=== PATIENT | male | born 1955 | race Caucasian/White ===

== ENCOUNTER 2017-12-04 21:50 | Inpatient (IN) | payer OTHER ==
[2017-12-04] MEDS ORDERED: ONDANSETRON 4 MG/2 ML VIAL IVP STA (21:56)
[2017-12-04] MEDS ORDERED: MORPHINE SULFATE 4 MG/ML SYRINGE IVP STA (21:56)
[2017-12-04] MEDS ORDERED: PANTOPRAZOLE 40 MG/10 ML VIAL IVP STA (21:56)
[2017-12-04] MEDS ORDERED: SODIUM CHLORIDE 0.9% 1,000 ML IV STA (21:57)
[2017-12-04] MEDS ORDERED: HEPARIN SODIUM,PORCINE 5,000 UNIT/ML 1 ML VIAL IV PRN (21:57)
[2017-12-04] MEDS ORDERED: MORPHINE SULFATE 4 MG/ML SYRINGE IV PRN (21:57)
[2017-12-04] MEDS ORDERED: LABETALOL 5 MG/ML VIAL MDV IVP STA ×2 (21:57→21:59)
[2017-12-04] MEDS ORDERED: METOPROLOL TARTRATE 5 MG/5 ML VIAL IVP STA ×2 (21:57→21:59)
[2017-12-04] MEDS ORDERED: LORazepam 2 MG/ML INJ IV STA (21:57)
[2017-12-04] MEDS ORDERED: HEPARIN SODIUM,PORCINE 5,000 UNIT/ML 1 ML VIAL IV ONE (21:57)
[2017-12-04] MEDS ORDERED: NITROGLYCERIN SL TABS 0.4 MG TAB SUBLINGUAL PRN ×2 (21:57→23:39)
[2017-12-04] MEDS ORDERED: NITROGLYCERIN OINT 1 INCH/GM PACKET TOPICAL STA (21:57)
[2017-12-04] MEDS ORDERED: ASPIRIN 81 MG PO STA (21:57)
[2017-12-04] MEDS ORDERED: HEPARIN SOD,PORK IN 0.45% NACL 25,000 UNIT in 0.45% NACL 1 500ML.BAG IV SCH (22:00)
[2017-12-04] MEDS ORDERED: HEPARIN SODIUM,PORCINE 5,000 UNIT/ML 1 ML VIAL IV STA (22:00)
[2017-12-04] MEDS ORDERED: DEXTROSE 5% IN WATER 100 ML with AMIODARONE 150 MG IV ONE (22:02)
[2017-12-04 22:14] LABS: HGB 14.4 gm/dL (13.0-17.5); MCH 29.5 pg (25.0-35.0); MCHC 33.5 g/dL (31.0-37.0); MCV 88.2 fL (80.0-100.0); Mean Platelet Volume 6.9; Platelet Count 318 k/uL (150-450); RBC 4.87 m/uL (4.30-5.90); RDW 12.3 % (11.5-15.5); WBC 13.6 k/uL (3.8-10.6)
--- NOTE | 2017-12-04 22:14 | XR ---
EXAMINATION TYPE: XR chest 1V portable DATE OF EXAM: 12/04/2017 COMPARISON: 01/30/2015 HISTORY: Chest pain TECHNIQUE: Single frontal view of the chest is obtained. FINDINGS: Heart and mediastinum are within normal limits. Lungs are clear of infiltrate. There is no heart failure. There is no pleural effusion. There are chest leads. IMPRESSION: No active cardiopulmonary disease. No change.
[2017-12-04] MEDS: ATORVASTATIN 80 MG TAB PO SCH (22:15)
[2017-12-04] MEDS ORDERED: ATORVASTATIN 80 MG TAB PO STA (22:16)
[2017-12-04 22:22] LABS: Partial Thromboplastin Time 23.9 sec (22.0-30.0)
[2017-12-04 22:28] LABS: ALT 29 U/L (21-72); AST 27 U/L (17-59); Alkaline Phosphatase 80 U/L (38-126); Anion Gap 16 mmol/L; Blood Urea Nitrogen 21 mg/dL (9-20); Calcium 9.6 mg/dL (8.4-10.2); Carbon Dioxide 23 mmol/L (22-30); Chloride 102 mmol/L (98-107); Glucose 162 mg/dL (74-99); Potassium 3.8 mmol/L (3.5-5.1); Sodium 141 mmol/L (137-145); Total Bilirubin 0.6 mg/dL (0.2-1.3); Total Protein 6.6 g/dL (6.3-8.2)
--- NOTE | 2017-12-04 22:28 | ED ---
General Adult HPI - General Chief complaint: Chest Pain Stated complaint: chest pain Time Seen by Provider: 12/04/17 21:57 Source: patient, RN notes reviewed, old records reviewed Mode of arrival: EMS Limitations: no limitations - History of Present Illness Initial comments: This is a 8-year-old male to the ER for evasive chest pain. Patient brought in by EMS. Patient in significant distress diaphoresis. Patient has history of heart disease with prior stents. Patient is a smoker. High blood pressure. Not taking blood pressure medications. Patient has severe chest pain at this time shortness of breath. Patient brought in by EMS - Related Data Home Medications Medication Instructions Recorded Confirmed Aspirin 325 mg PO DAILY 12/05/17 12/05/17 Allergies Allergy/AdvReac Type Severity Reaction Status Date / Time No Known Allergies Allergy Verified 12/04/17 22:02 Review of Systems ROS Statement: Those systems with pertinent positive or pertinent negative responses have been documented in the HPI. ROS Other: All systems not noted in ROS Statement are negative. Past Medical History History of Any Multi-Drug Resistant Organisms: None Reported Past Psychological History: No Psychological Hx Reported Smoking Status: Current every day smoker Past Alcohol Use History: None Reported Past Drug Use History: None Reported - Past Family History Father Family Medical History: Myocardial Infarction ([place]) Additional Family Medical History / Comment(s): smoker, lung CA Mother Family Medical History: No Reported History General Exam Limitations: no limitations General appearance: alert, anxious, in distress Head exam: Present: atraumatic, normocephalic, normal inspection Eye exam: Present: normal appearance, PERRL, EOMI. Absent: scleral icterus, conjunctival injection, periorbital swelling ENT exam: Present: normal exam, mucous membranes moist Neck exam: Present: normal inspection. Absent: tenderness, meningismus, lymphadenopathy Respiratory exam: Present: normal lung sounds bilaterally. Absent: respiratory distress, wheezes, rales, rhonchi, stridor Cardiovascular Exam: Present: regular rate, normal rhythm, normal heart sounds. Absent: systolic murmur, diastolic murmur, rubs, gallop, clicks GI/Abdominal exam: Present: soft, normal bowel sounds. Absent: distended, tenderness, guarding, rebound, rigid Extremities exam: Present: normal inspection, full ROM, normal capillary refill. Absent: tenderness, pedal edema, joint swelling, calf tenderness Back exam: Present: normal inspection Neurological exam: Present: alert, oriented X3, CN II-XII intact Psychiatric exam: Present: normal affect, normal mood Skin exam: Present: warm, dry, intact, normal color. Absent: rash Course Vital Signs 12/04/17 12/04/17 12/04/17 21:57 22:00 22:03 Temperature 97.9 F Pulse Rate 145 H 128 H 140 H Respiratory 20 20 Rate Blood Pressure 180/108 127/76 133/80 O2 Sat by Pulse 99 98 99 Oximetry 12/04/17 12/04/17 12/04/17 22:06 22:12 22:18 Temperature Pulse Rate 128 H 116 H Respiratory Rate Blood Pressure 130/95 124/77 124/77 O2 Sat by Pulse 99 98 99 Oximetry 12/04/17 12/04/17 22:22 22:27 Temperature Pulse Rate 91 89 Respiratory 20 20 Rate Blood Pressure 119/84 112/87 O2 Sat by Pulse 99 99 Oximetry - Reevaluation(s) Reevaluation #1: STEMI paged on patient arrival to emergency room Copier Operator in the ER regarding patient Reevaluation #2: per EMS patient had episode of VFIB w defibrillation enroute EKG Findings - EKG Comments: EKG Findings:: EKG shows A. fib with RVR, rate of 145, QRS 110, QTc 447, patient is ST elevated [place]. EKG shows A. fib with RVR rate 132, QRS 106, QTc 420 , STEMI Medical Decision Making - Medical Decision Making 62 male the ER for evaluation of chest pain, V. fib arrest, continued chest pain with ST elevated [place], patient will be admitted for cardiology, Barrel Line Operator - Lab Data Result diagrams: 12/04/17 22:01 12/04/17 22:01 Lab Results 12/04/17 12/04/17 12/04/17 Range/Units 22:01 22:01 22:01 WBC 13.6 H (3.8-10.6) k/uL RBC 4.87 (4.30-5.90) m/uL Hgb 14.4 (13.0-17.5) gm/dL Hct 43.0 (39.0-53.0) % MCV 88.2 (80.0-100.0) fL MCH 29.5 (25.0-35.0) pg MCHC 33.5 (31.0-37.0) g/dL RDW 12.3 (11.5-15.5) % Plt Count 318 (150-450) k/uL PT 11.1 (9.0-12.0) sec INR 1.2 H (<1.2) APTT 23.9 (22.0-30.0) sec Sodium (137-145) mmol/L Potassium (3.5-5.1) mmol/L Chloride (98-107) mmol/L Carbon Dioxide (22-30) mmol/L Anion Gap mmol/L BUN (9-20) mg/dL Creatinine (0.66-1.25) mg/dL Est GFR (MDRD) Af Amer (>60 ml/min/1.73 sqM) Est GFR (MDRD) Non-Af (>60 ml/min/1.73 sqM) Glucose (74-99) mg/dL Calcium (8.4-10.2) mg/dL Magnesium (1.6-2.3) mg/dL Total Bilirubin (0.2-1.3) mg/dL AST (17-59) U/L ALT (21-72) U/L Alkaline Phosphatase (38-126) U/L Total Creatine Kinase 81 (55-170) U/L CK-MB (CK-2) 1.1 (0.0-2.4) ng/mL CK-MB (CK-2) Rel Index 1.4 Troponin I 0.045 H* (0.000-0.034) ng/mL NT-Pro-B Natriuret Pep pg/mL Total Protein (6.3-8.2) g/dL Albumin (3.5-5.0) g/dL 12/04/17 12/04/17 Range/Units 22:01 22:01 WBC (3.8-10.6) k/uL RBC (4.30-5.90) m/uL Hgb (13.0-17.5) gm/dL Hct (39.0-53.0) % MCV (80.0-100.0) fL MCH (25.0-35.0) pg MCHC (31.0-37.0) g/dL RDW (11.5-15.5) % Plt Count (150-450) k/uL PT (9.0-12.0) sec INR (<1.2) APTT (22.0-30.0) sec Sodium 141 (137-145) mmol/L Potassium 3.8 (3.5-5.1) mmol/L Chloride 102 (98-107) mmol/L Carbon Dioxide 23 (22-30) mmol/L Anion Gap 16 mmol/L BUN 21 H (9-20) mg/dL Creatinine 1.00 (0.66-1.25) mg/dL Est GFR (MDRD) Af Amer >60 (>60 ml/min/1.73 sqM) Est GFR (MDRD) Non-Af >60 (>60 ml/min/1.73 sqM) Glucose 162 H (74-99) mg/dL Calcium 9.6 (8.4-10.2) mg/dL Magnesium 2.0 (1.6-2.3) mg/dL Total Bilirubin 0.6 (0.2-1.3) mg/dL AST 27 (17-59) U/L ALT 29 (21-72) U/L Alkaline Phosphatase 80 (38-126) U/L Total Creatine Kinase (55-170) U/L CK-MB (CK-2) (0.0-2.4) ng/mL CK-MB (CK-2) Rel Index Troponin I (0.000-0.034) ng/mL NT-Pro-B Natriuret Pep 60 pg/mL Total Protein 6.6 (6.3-8.2) g/dL Albumin 4.0 (3.5-5.0) g/dL - Radiology Data Radiology results: report reviewed (Chest x-rays negative), image reviewed Critical Care Time Critical Care Time: Yes Total Critical Care Time: 31 Disposition Clinical Impression: ST elevation myocardial infarction (STEMI) Disposition: ADMITTED IP TO THIS HOSP Condition: Critical
[2017-12-04] MEDS ORDERED: IV FLUID CONTINUATION 1,000 ML IV ONE (22:36)
[2017-12-04] MEDS ORDERED: ONDANSETRON 4 MG/2 ML VIAL IVP ONE (22:38)
[2017-12-04] MEDS ORDERED: LIDOCAINE 2% INJ 20 MG/ML (20 ML MDV) ONE (22:40)
[2017-12-04] MEDS ORDERED: fentaNYL (PF) 50 MCG/ML 2 ML AMP IV ONE (22:43)
[2017-12-04] MEDS ORDERED: LIDOCAINE 2% INJ 20 MG/ML SQ ONE (22:43)
[2017-12-04 22:44] LABS: Creatine Kinase MB 1.1 ng/mL (0.0-2.4)
[2017-12-04] MEDS ORDERED: fentaNYL (PF) 50 MCG/ML 2 ML AMP ONE (22:46)
[2017-12-04] MEDS ORDERED: PRASUGREL 10 MG TAB ONE (22:50)
[2017-12-04 22:51] LABS: Troponin I 0.045 ng/mL (0.000-0.034)
[2017-12-04] MEDS ORDERED: PRASUGREL 10 MG TAB PO ONE (22:52)
[2017-12-04] MEDS ORDERED: BIVALIRUDIN BOLUS 250 MG/50 ML IV ONE (22:52)
[2017-12-04] MEDS ORDERED: BIVALIRUDIN 250 MG in SODIUM CHLORIDE 0.9% 50 ML IV ONE (22:53)
[2017-12-04 23:09] LABS: INR 1.2 (<1.2); Prothrombin Time 11.1 sec (9.0-12.0)
[2017-12-04] MEDS ORDERED: IOHEXOL 350 MG/ML 125ML BOTTLE INJ ONE (23:16)
[2017-12-04] MEDS ORDERED: ZOLPIDEM 5 MG TAB PO PRN (23:39)
[2017-12-04] MEDS ORDERED: MAG HYDROX/AL HYDROX/SIMETH 30 ML CUP PO PRN (23:39)
[2017-12-04] MEDS ORDERED: RX INFO: IV CONTRAST WAS GIVEN 1 EACH MISC MISCELLANE PRN (23:39)
[2017-12-04] MEDS ORDERED: ATROPINE SULFATE 0.1 MG/ML 10ML SYRINGE IV PRN (23:39)
--- NOTE | 2017-12-04 23:41 | CONS ---
CONSULTATION Mr. Davila is a 62-year-old male with a known history of chronic tobacco use, prior history of hypertension and history of coronary artery disease who according to him has underwent percutaneous revascularization in 2011. He presented to the emergency room with symptoms of chest discomfort. According to him, the pain started today, severe across the chest underneath the arm. In the EMS, he had a VT arrest requiring cardioversion. At the time of my evaluation, he is in atrial fibrillation with episode of rapid ventricular response. According to him, this is the first episode of discomfort he had since the event in 2011. All the details of that are not available. He has not followed with a physician since that time and has not been taking any medication recently. He has dyspnea on exertion, according to him for the last month. He has not been feeling well. He has no peripheral edema. No significant dizziness or palpitation. No syncope. The duration of the atrial fibrillation is unclear. His coronary risk factors are remarkable for smoking, hypertension. He denies any diabetes. I do not have evaluation of his lipid profile. MEDICATION: None. REVIEW OF SYSTEMS: RESPIRATORY SYSTEM: He has dyspnea on exertion and cough. GI SYSTEM: No history of GI bleed. No peptic ulcer disease. SYSTEM: No dysuria or hematuria. NERVOUS SYSTEM: No stroke or seizure. SOCIAL HISTORY: He denies any alcohol intake or history of drug use. PHYSICAL EXAMINATION: A 62-year-old male, alert, oriented in mild discomfort. Blood pressure 120/70 with a heart rate in the 110s. HEAD: Normocephalic. EYES: Sclerae anicteric. NECK: Good upstroke. No bruit. LUNGS: Decreased air exchange. HEART: Irregularly irregular. S1, S2. No S3 with systolic murmur. No diastolic murmur. ABDOMEN: Soft, nontender. Positive bowel sounds. No organomegaly. EXTREMITIES: No edema, +1 distal pulses. LAB DATA: EKG revealed an atrial fibrillation with rapid ventricular response with diffuse ST- segment depression and mild ST-elevation in aVR. IMPRESSION: 1. Acute coronary syndrome with an episode of ventricular tachycardia requiring cardioversion. 2. Atrial fibrillation of unknown duration. 3. History of coronary artery disease. 4. History of chronic tobacco use. 5. Noncompliance. RECOMMENDATION: From the cardiac standpoint, I will proceed with emergent cardiac catheterization to assess his status and guide his treatment. The rationale behind the procedure, its risks and complications were discussed with the patient and in full understanding and agreement. Thank you for this consult. We will follow with you. MMODL / IJN: [id number] /
[2017-12-04 23:45] LABS: Glucose,Whole Blood 131 mg/dL (75-99)
[2017-12-04] MEDS ORDERED: SODIUM CHLORIDE 0.9% 1,000 ML IV SCH (23:45)
[2017-12-04] MEDS ORDERED: Potassium Replacement Protocol 1 EACH MISC MISCELLANE PRN (23:52)
[2017-12-05] MEDS ORDERED: Magnesium Replacement Protocol 1 EACH MISC MISCELLANE PRN (00:27)
[2017-12-05 00:44] VITALS: BMI 24.3
[2017-12-05] MEDS ORDERED: POTASSIUM CHLORIDE ER 20 MEQ TAB.ER PO SCH (01:00)
[2017-12-05] MEDS: MAGNESIUM SULFATE-D5W PMX 1 GM in DEXTROSE/WATER 1 100ML.BAG IVPB SCH ×2 (01:07→02:55)
--- NOTE | 2017-12-05 03:17 | CC ---
CARDIAC CATHETERIZATION REPORT Mr. Davila is a 62-year-old male with a known history of coronary artery disease, status post percutaneous revascularization of his right coronary artery in 2012, who presented with non ST-segment elevation myocardial infarction and atrial fibrillation as well as an episode of ventricular tachycardia requiring cardioversion. In view of that, recommendation made regarding cardiac catheterization. The procedures, risks and complications were discussed with the patient who is in full understanding and agreement. PROCEDURE: Patient was brought to microbiology lab technician after receiving Versed and fentanyl and achieving moderate conscious sedated state. Using Xylocaine anesthesia and Seldinger technique, a 6-Stateless sheath was introduced in the right femoral artery. Selective right and left angiography performed using 6-Stateless 4 bend right and left Yesika catheter. Multiple views of the coronary artery including hemiaxial views obtained. Following that angioplasty and stenting of the left circumflex was performed. Following that, a 6- Stateless tight pigtail catheter was introduced in the left ventricle and a 30 degree BEY view of the left ventricle was obtained. Following that, the catheter and sheath were removed. Hemostasis was obtained with deployment of an Angio-Seal. There was no immediate complication. Patient is returned to his room in stable condition. FINDINGS: 1. Left main this is a large-sized vessel bifurcating into the left circumflex artery, left anterior descending artery, left main coronary artery is without any significant obstructive disease. 2. Left anterior descending artery: This is a large size vessel reaching towards the apex with a wrap the apex segment. The left anterior descending artery in the mid segment gives rise to a large diagonal branch. The proximal segment of the LAD has a complex lesion with area of stenosis of 70%. The rest of the vessel has no high- grade stenosis. 3. Left circumflex: This vessel is totally occluded proximally with no antegrade flow. 4. Right coronary artery: This is a large dominant vessel bifurcating distally PDA and posterolateral segment and branches. Mid segment of the right coronary artery is stented. The stent is patent, but there is evidence of plaque proximal to the stent of about 40%. In the distal segment of the stent, there is another plaque of 60-70% stenosis. The distal right coronary artery as well as the PDA and PLV have mild diffuse intimal disease. There is an area of 60 the patient 70% plaque in the PLV. 5. Left ventriculogram is performed in 30 degree BEY view and revealed an inferior wall hypokinesis. Ejection fraction is estimated at 45%. There was no significant mitral regurgitation. 6. HEMODYNAMICS: There was no gradient across the aortic valve. The left ventricular end-diastolic pressure was 16 mmHg. CONCLUSION: 1. Acutely occluded proximal left circumflex. 2. Significant disease in the proximal LAD. 3. Moderate disease in the right coronary artery. 4. Mildly impaired left ventricular systolic function. RECOMMENDATION: In view of findings and anatomy, I have recommend proceeding with angioplasty and stenting of the left circumflex. The procedures, as well as risks and complication were discussed with the patient who was in full understanding and agreement. MMODL / IJN: [id number] /
--- NOTE | 2017-12-05 03:19 | PTCA ---
PERCUTANEOUSTRANS CORORONARY ANGIOGRAPHY Mr. Davila is a 62-year-old male with a known history of coronary disease, who presented with non STEMI, underwent emergent cardiac catheterization, was found to have a totally occluded proximal left circumflex. In view of that, recommendation was made regarding angioplasty and stenting the procedures as well as risks and complications were discussed with the patient who is in full understanding and agreement. PROCEDURE: A 6-Hungarian FR4 guiding catheter in the system. After cannulating the left main, a 0.014 balanced medium weight J-wire was advanced across the total occlusion and was positioned distally. Then a 2.5 x 12 mm Trek balloon was advanced and one inflation at 8 atmospheres was done. Following that the balloon was removed and a 2.5 x 15 mm Xience Alpine stent was deployed. It was dilated at 14 atmospheres. After the last inflation, after appropriate wait, the balloon and the guidewire were withdrawn back in the guiding catheter. Images were obtained and repeated. Those images reveal stable successful stenting. At that point, the guiding catheter, the balloon and the guidewire were removed and a left ventriculogram was performed. Following the catheter and sheaths were removed. Hemostasis was obtained with deployment of an Angio-Seal. There was no immediate complication. Patient is returned to his room in stable condition. Of note, the patient received Angiomax per protocol as was oral loading dose of Effient. At the end the procedure, his chest discomfort resolved. RESULTS: Successful stenting of the proximal left circumflex with reduction of stenosis from 100% to 0%. RECOMMENDATIONS: Patient will be continued on aspirin, Effient, beta mark and ADRIEN inhibitor and statins. The importance of dual antiplatelet treatment as well as smoking cessation were discussed with the patient. The patient has not been compliant in the past and has stopped all his medication. Emphasized to him the importance of medical compliance. He will need to be evaluated at a later time regarding undergoing percutaneous revascularization of the LAD. Those findings and recommendation were discussed with the patient and he was in full understanding and agreement. Duration of procedure: 36 minutes. MMODL / IJN: [id number] /
[2017-12-05 04:29] LABS: Basophils % (A) 0 %; Eosinophils % (A) 0 %; HCT 42.6 % (39.0-53.0); HGB 13.7 gm/dL (13.0-17.5); Lymphocytes % (A) 10 %; MCH 29.4 pg (25.0-35.0); MCHC 32.1 g/dL (31.0-37.0); MCV 91.4 fL (80.0-100.0); Mean Platelet Volume 6.8; Monocytes # (A) 0.5 k/uL (0-1.0); Monocytes % (A) 5 %; Neutrophils # (A) 8.7 k/uL (1.3-7.7); Neutrophils % (A) 84 %; Platelet Count 274 k/uL (150-450); RBC 4.66 m/uL (4.30-5.90); RDW 12.4 % (11.5-15.5); WBC 10.4 k/uL (3.8-10.6)
[2017-12-05 04:37] LABS: Anion Gap 8 mmol/L; Blood Urea Nitrogen 18 mg/dL (9-20); Calcium 8.6 mg/dL (8.4-10.2); Carbon Dioxide 27 mmol/L (22-30); Chloride 103 mmol/L (98-107); Cholesterol 156 mg/dL (<200); Glucose 111 mg/dL (74-99); HDL Cholesterol 45 mg/dL (40-60); LDL Cholesterol,Calculated 93 mg/dL (0-99); Potassium 4.4 mmol/L (3.5-5.1); Sodium 138 mmol/L (137-145); Triglycerides 88 mg/dL (<150)
[2017-12-05 05:11] LABS: Troponin I 48.6 ng/mL (0.000-0.034)
[2017-12-05 05:16] LABS: INR 1.1 (<1.2)
[2017-12-05 05:17] LABS: Prothrombin Time 10.8 sec (9.0-12.0)
[2017-12-05 05:19] LABS: Magnesium 2.6 mg/dL (1.6-2.3); Partial Thromboplastin Time 28.2 sec (22.0-30.0); Phosphorus 3.5 mg/dL (2.5-4.5)
[2017-12-05] MEDS: LISINOPRIL 5 MG TAB PO SCH (08:49)
[2017-12-05] MEDS: PRASUGREL 10 MG TAB PO SCH (08:49)
[2017-12-05] MEDS: ASPIRIN 81 MG PO SCH (08:49)
[2017-12-05] MEDS: METOPROLOL TARTRATE 25 MG TAB PO SCH ×2 (08:49→21:37)
[2017-12-05] MEDS ORDERED: METOPROLOL TARTRATE 50 MG TAB PO SCH (09:00)
[2017-12-05] MEDS ORDERED: ASPIRIN 325 MG TAB PO SCH (09:00)
[2017-12-05] MEDS ORDERED: ATORVASTATIN 80 MG TAB PO SCH (09:00)
--- NOTE | 2017-12-05 09:49 | ECHOF ---
Referral Reason:mi MEASUREMENTS -------- HEIGHT: 175.3 cm WEIGHT: 74.4 kg BP: 110/71 RVIDd: 2.3 cm (< 3.3) IVSd: 1.3 cm (0.6 - 1.1) LVIDd: 3.6 cm (3.9 - 5.3) LVPWd: 1.1 cm (0.6 - 1.1) IVSs: 1.5 cm LVIDs: 3.0 cm LVPWs: 1.2 cm LA Diam: 2.7 cm (2.7 - 3.8) LAESV Index (A-L): 17.64 ml/m Ao Diam: 3.9 cm (2.0 - 3.7) AV Cusp: 1.9 cm (1.5 - 2.6) MV EXCURSION: 18.612 mm (> 18.000) MV EF SLOPE: 68 mm/s (70 - 150) EPSS: 0.7 cm MV E Darren: 1.03 m/s MV DecT: 232 ms MV A Darren: 0.88 m/s MV E/A Ratio: 1.17 RAP: 15.00 mmHg RVSP: 27.01 mmHg FINDINGS -------- Sinus rhythm with extra systolic beats. The left ventricular size is normal. There is mild concentric left ventricular hypertrophy. Overa ll left ventricular systolic function is mildly impaired with, an EF between 45 - 50 %. Basal poste rior LV wall motion is dyskinetic. Basal inferior LV wall motion is hypokinetic. The right ventricle is normal in size. Normal LA size by volume 22+/-6 ml/m2. The right atrium is normal in size. Aortic valve is trileaflet and is mildly thickened. The mitral valve is normal. Mild tricuspid regurgitation present. Right ventricular systolic pressure is normal at < 35 mmHg. There is no pulmonic regurgitation present. The aortic root is dilated measuring 3.9cm. The inferior vena cava is dilated with poor inspiratory collapse which is consistent with estimated r ight atrial pressure of 15 mmHg. There is no pericardial effusion. CONCLUSIONS -------- 1. Sinus rhythm with extra systolic beats. 2. The left ventricular size is normal. 3. There is mild concentric left ventricular hypertrophy. 4. Overall left ventricular systolic function is mildly impaired with, an EF between 45 - 50 %. 5. Basal posterior LV wall motion is dyskinetic. 6. Basal inferior LV wall motion is hypokinetic. 7. The right ventricle is normal in size. 8. Normal LA size by volume 22+/-6 ml/m2. 9. The right atrium is normal in size. 10. Aortic valve is trileaflet and is mildly thickened. 11. The mitral valve is normal. 12. Mild tricuspid regurgitation present. 13. Right ventricular systolic pressure is normal at < 35 mmHg. 14. There is no pulmonic regurgitation present. 15. The aortic root is dilated measuring 3.9cm. 16. The inferior vena cava is dilated with poor inspiratory collapse which is consistent with estimat ed right atrial pressure of 15 mmHg. 17. There is no pericardial effusion. SENIOR MAJOR GIFTS OFFICER: Smita Wadsworth RDCS
[2017-12-05] MEDS ORDERED: ONDANSETRON 4 MG/2 ML VIAL IVP STA (09:57)
[2017-12-05] MEDS: NICOTINE 14MG/24HR PATCH TRANSDERM SCH (10:11)
[2017-12-05] MEDS: ALPRAZolam 0.5 MG TAB PO PRN (10:13)
[2017-12-05 11:43] LABS: Troponin I 43.4 ng/mL (0.000-0.034)
[2017-12-05 11:54] LABS: Hemoglobin A1C 5.7 % (4.0-6.0)
[2017-12-05] MEDS ORDERED: HYDROmorphone 0.5 MG/0.5 ML SYRINGE IVP PRN (16:24)
--- NOTE | 2017-12-05 17:33 | PN ---
PROGRESS NOTE Mr. Davila is a gentleman who presented last night with an ST-elevation SC involving the circumflex artery. He underwent stenting of circumflex with excellent result. Prior to that several years ago he had stenting of RCA performed. There was in-stent restenosis of about 70% noted. The LAD has a 50% to 55% calcified proximal lesion. I am advising that we pursue aggressive medical therapy and he will be discharged when stable. We will do staged intervention of the RCA at a later date. I discussed this with the patient. Also reviewed the films and communicated with Dr. Lobo. Vital signs are stable. S1, S2 heard normally. Lungs are clear. Abdomen and lower extremity exam unchanged. Right groin is clean and dry with a good pulse. Patient will be moved to telemetry later this evening or early tomorrow. We will obtain an echocardiogram as well. MMSCOTTL / ANGELICAN: [id number] /
--- NOTE | 2017-12-05 18:33 | HP ---
HISTORY AND PHYSICAL DATE OF SERVICE: 12/04/2017 CHIEF COMPLAINT: Chest pain. BRIEF HISTORY: This is a 62-year-old male patient with a past medical history of hypertension, history of coronary artery disease and history of PCI in 2011 who presented to ED with the complaint of chest discomfort. According to patient, it started on the day prior to coming to the hospital. It was severe pain across the middle of the chest radiating to underneath his arm. En route to ED patient had ventricular tachycardia arrest requiring cardioversion. He was seen in ED with atrial fibrillation with rapid ventricular response. He was admitted for further evaluation. PAST MEDICAL HISTORY: 1. History of hypertension. 2. Coronary artery disease. 3. History of PCI in 2011. 4. History of tobacco abuse. SOCIAL HISTORY: Patient smokes a pack of cigarettes per day. Denies any history of alcohol or drug abuse. FAMILY HISTORY: Significant for SD in father and carcinoma of the lung and SD and carcinoma of lung in father. Also strong smoking history in father. ALLERGIES: NO KNOWN DRUG ALLERGIES. MEDICATIONS: He takes aspirin 325 mg daily. REVIEW OF SYSTEMS: CONSTITUTIONAL: Patient denies any fever, chills, unexplained weight loss or loss of appetite. HEENT: Denies any vision or hearing loss. RESPIRATORY: Denies any dyspnea, cough or wheezing. CARDIOVASCULAR: No chest pain or palpitations. ABDOMEN/GI: No nausea, vomiting, diarrhea. GENITOURINARY: No dysuria or hematuria. NERVOUS SYSTEM: No dizziness, lightheadedness or seizures. MUSCULOSKELETAL: No joint or muscle deformities. SKIN: No rashes or pigmentation. HEMATOLOGICAL: No bleeding or coagulation disorders. LYMPHATICS: No cervical or axillary lymphadenopathy. Rest of 14-point review of system is unremarkable. PHYSICAL EXAMINATION: GENERAL: Patient is alert and anxious. He is in distress. VITAL SIGNS: Temperature of 98.6, respiration 20, blood pressure 119/84, oxygen saturation 99%. HEENT: Atraumatic, normocephalic. Pupils equal and reactive to light. Extraocular movements intact. Buccal mucosa is fair. NECK: Supple. No goiter or lymphadenopathy. JVD is negative. No carotid bruit heard. RESPIRATORY: Lungs are clear to auscultate. No rales, rhonchi or wheezes. CARDIOVASCULAR: Heart is regular rate and rhythm without any murmurs, gallop rhythm. ABDOMEN/GI. Abdomen is soft, nontender, nondistended. Bowel sounds positive. EXTREMITIES: Patient has all full range of motion, all 4 extremities. Pulses are palpable. No rashes or pigmentation. BACK EXAMINATION: Normal. NEUROLOGICAL EXAMINATION: Cranial nerves 2-12 grossly intact. No gross motor or sensory deficit. PSYCHIATRIC EXAMINATION: Patient has normal affect , normal judgment. SKIN EXAMINATION: Skin is warm, dry and intact. No rashes or pigmentation. LYMPHATIC SYSTEM: No axillary or cervical lymph node enlargement. LABS: CBC: White blood count of 13.6, hemoglobin 14.4, hematocrit 43 and platelet count of 318. PT 11.1, INR 1.2. Chemical profile: Sodium 141, potassium 3.8, chloride 102, bicarb 23, BUN 29, creatinine 1, glucose 162. Troponin 0.045. ASSESSMENT: 1. Acute coronary syndrome with an episode of ventricular tachycardia requiring cardioversion. 2. Atrial fibrillation with rapid ventricular response. 3. History of coronary artery disease. 4. Chronic tobacco abuse. 5. Hypertension. The patient is admitted to ICU. Patient is to go for emergent cardiac catheterization for further treatment and evaluation. Troponins will be trended. Further recommendations after heart catheterization is done. MMODL / IJN: [id number] / MTDGabe
[2017-12-05] MEDS: ATORVASTATIN 80 MG TAB PO SCH (21:37)
[2017-12-06] MEDS: PRASUGREL 10 MG TAB PO SCH (08:10)
[2017-12-06] MEDS: LISINOPRIL 5 MG TAB PO SCH (08:10)
[2017-12-06] MEDS: ASPIRIN 81 MG PO SCH (08:11)
[2017-12-06] MEDS: METOPROLOL TARTRATE 25 MG TAB PO SCH (08:11)
[2017-12-06] MEDS: NICOTINE 14MG/24HR PATCH TRANSDERM SCH (08:13)
[2017-12-06] MEDS: ALPRAZolam 0.5 MG TAB PO PRN ×2 (09:30→22:29)
--- NOTE | 2017-12-06 17:04 | PN ---
PROGRESS NOTE Mr. Davila suffered from an acute inferior WI yesterday, underwent circumflex PCI by Dr. Lobo. He is doing much better. Denies chest pain, stable shortness of breath. No palpitations. I reviewed his medications. We will increase activity and move him to telemetry today. Vital signs are stable. S1, S2 heard normally. Lungs are clear. Abdomen and lower extremity exam unchanged. Plan is possibly discharge him in the next 24 to 48 hours. Discussed my thoughts in detail with the patient and also reinforced risk factor modification and smoking cessation. MMODL / IJN: [id number] /
--- NOTE | 2017-12-06 18:40 | PN ---
PROGRESS NOTE DATE OF SERVICE: 12/06/2017 The patient is admitted to ICU for acute ID, status post cardiac catheterization showing coronary artery disease. Patient underwent circumflex PCI by Dr. Lobo, remains hemodynamically stable. His vital signs: Temperature of 98.7, pulse 60, respirations 18, blood pressure 140/83, O2 saturation 100%. HEENT: Atraumatic, normocephalic. Pupils equal and react to light. Extraocular movements intact. Buccal mucosa is fair. Neck is supple. No goiter, lymphadenopathy. JVD is negative. No carotid bruit heard. Lungs are clear to auscultate. No rales, rhonchi or wheezes. Heart is regular rate and rhythm without any murmurs, gallop rhythm. Abdomen is soft, nontender, nondistended. Bowel sounds positive. EXTREMITIES: No edema, clubbing, cyanosis. ASSESSMENT: 1. Acute myocardial infarction, status post cardiac catheterization with circumflex percutaneous intervention. 2. Episodes of ventricular tachycardia requiring cardioversion. 3. Atrial fibrillation with a rapid ventricular response, clinically stable. 4. History of coronary artery disease. 5. Chronic tobacco abuse. 6. Hypertension. The patient has undergone circumflex percutaneous intervention, is being followed by Cardiology. Plan is to continue current medications and plan of care and for possible discharge in 24-48 hours. Counseling done for risk factor modification and smoking cessation. The patient is not very receptive at this point. MMODL / IJN: [id number] /
[2017-12-07 05:29] LABS: ALT 41 U/L (21-72); AST 54 U/L (17-59); Alkaline Phosphatase 77 U/L (38-126); Anion Gap 9 mmol/L; Blood Urea Nitrogen 23 mg/dL (9-20); Calcium 9.3 mg/dL (8.4-10.2); Carbon Dioxide 32 mmol/L (22-30); Chloride 100 mmol/L (98-107); Glucose 99 mg/dL (74-99); Potassium 3.9 mmol/L (3.5-5.1); Sodium 141 mmol/L (137-145); Total Protein 6.7 g/dL (6.3-8.2)
[2017-12-07 05:38] LABS: Basophils # (A) 0.1 k/uL (0-0.2); Basophils % (A) 1 %; Eosinophils # (A) 0.2 k/uL (0-0.7); Eosinophils % (A) 2 %; HCT 44.7 % (39.0-53.0); HGB 14.8 gm/dL (13.0-17.5); Lymphocytes # (A) 2.2 k/uL (1.0-4.8); Lymphocytes % (A) 24 %; MCH 29.4 pg (25.0-35.0); MCV 89.1 fL (80.0-100.0); Monocytes # (A) 0.7 k/uL (0-1.0); Monocytes % (A) 7 %; Neutrophils # (A) 6.1 k/uL (1.3-7.7); Neutrophils % (A) 65 %; Platelet Count 276 k/uL (150-450); RBC 5.02 m/uL (4.30-5.90); RDW 12.2 % (11.5-15.5); WBC 9.3 k/uL (3.8-10.6)
[2017-12-07] MEDS ORDERED: POTASSIUM CHLORIDE ER 20 MEQ TAB.ER PO SCH (09:00)
[2017-12-07] MEDS: ATORVASTATIN 80 MG TAB PO SCH ×2 (09:49→20:11)
[2017-12-07] MEDS: METOPROLOL TARTRATE 25 MG TAB PO SCH ×3 (09:49→20:11)
[2017-12-07] MEDS: LISINOPRIL 10 MG TAB PO SCH (09:50)
[2017-12-07] MEDS: ASPIRIN 81 MG PO SCH (09:50)
[2017-12-07] MEDS: PRASUGREL 10 MG TAB PO SCH (09:50)
[2017-12-07] MEDS: NICOTINE 14MG/24HR PATCH TRANSDERM SCH (09:50)
[2017-12-07] MEDS ORDERED: HYDROmorphone 2 MG TAB PO PRN (11:18)
[2017-12-07 11:48] LABS: Glucose,Whole Blood 105 mg/dL (75-99)
--- NOTE | 2017-12-07 15:03 | PN ---
PROGRESS NOTE Mr. Davila is status post circumflex PCI performed by Dr. Lobo on Friday. He is doing well. He still has a disease within the stented segment of RCA and moderate disease in LAD. I am recommending that we continue current medications, increase activity. Move him to telemetry. Possible discharge him tomorrow. Vital signs are stable. S1-S2 heard normally. Lungs are clear. Abdomen and lower exam is unchanged. MMODL / IJN: [id number] /
[2017-12-07] MEDS: ALPRAZolam 0.5 MG TAB PO PRN ×2 (16:48→23:35)
--- NOTE | 2017-12-07 19:39 | PN ---
PROGRESS NOTE DATE OF SERVICE: 12/07/2017 Patient is seen status post circumflex PCI done on Friday. The patient resting comfortably in bed, somewhat irritable. VITAL SIGNS: Temperature of 98.3, pulse 56, respiration 14, blood pressure 119/68, O2 saturation 98%. HEENT: Atraumatic, normocephalic. Pupils equal and react to light. Extraocular movement intact. Buccal mucosa is fair. Neck is supple. No goiter, lymphadenopathy. JVD is negative. No carotid bruit heard. Lungs are clear to auscultation. No rales, rhonchi, or wheezes. Heart is regular rate and rhythm without murmurs, gallop rhythm. Abdomen is soft, nontender, nondistended. Bowel sounds positive. EXTREMITIES: No edema, clubbing or cyanosis. NEUROLOGICAL EXAMINATION: Cranial nerves 2-12 grossly intact. No gross motor or sensory deficit. Skin is warm, dry and intact. LAB: CBC: White blood count 9.3, hemoglobin 14.8, hematocrit 44.7, platelet count of 276. Chemical profile: Sodium 141, potassium 3.9, chloride 32, bicarb 9, BUN 28, creatinine 0.9, glucose 105. ASSESSMENT: 1. Acute myocardial infarction, status post cardiac catheterization with the circumflex PCI that was done on Friday. 2. Episodes of ventricular tachycardia requiring cardioversion. 3. Atrial fibrillation without rapid ventricular response, controlled ventricular response now. 4. Coronary artery disease. 5. Chronic tobacco use. 6. Hypertension. The patient has been stable post procedure. Cardiology is recommending possible discharge in next 24 hours if patient remains stable. MMODL / IJN: [id number] /
[2017-12-08] MEDS: ASPIRIN 81 MG PO SCH (08:06)
[2017-12-08] MEDS: NICOTINE 14MG/24HR PATCH TRANSDERM SCH (08:06)
[2017-12-08] MEDS: LISINOPRIL 10 MG TAB PO SCH (08:06)
[2017-12-08] MEDS: METOPROLOL TARTRATE 25 MG TAB PO SCH (08:06)
[2017-12-08] MEDS: PRASUGREL 10 MG TAB PO SCH (08:07)
[2017-12-08 08:10] VITALS: BP 134/79; RESP 18; TEMP 98.2
[2017-12-08 12:54] VITALS: PULSE 58
[2017-12-08] MEDS ORDERED: ALPRAZolam 0.25 MG TAB PO SCH (21:00)
--- NOTE | 2017-12-08 22:13 | PN ---
PROGRESS NOTE This is a 62-year-old gentleman who suffered from an acute inferior/posterior CT, underwent stenting of totally occluded circumflex by Dr. Lobo on 12/05/2017. Post-PCI course was unremarkable. However, patient does have a lesion in the previously stented RCA with in-stent restenosis, but that was not the culprit lesion. Additionally he has moderate disease in proximal and mid LAD as well. He is doing well this morning. He denies any chest pain. His vital signs are stable. His right groin is clean and dry. There is no JVD or carotid bruit. S1, S2 are heard normally. Lungs reveal decent air entry. Abdomen and lower extremity exam is unchanged. Patient will be discharged today. I reviewed with him the discharge instructions regarding activity, diet and medications. He will see Dr. Lobo in one week. I advised him to continue to refrain from smoking. Risk factor modification issues, discharge instructions regarding activity, diet and medications were discussed, and patient will be discharged today. MMODL / IJN: [id number] /
--- NOTE | 2017-12-09 06:23 | DS ---
DISCHARGE SUMMARY DATE OF SERVICE: 12/08/2017. FINAL DIAGNOSES: 1. Acute lwq-CJ-wanwfia elevation myocardial infarction, status post cardiac catheterization and circumflex PCI. 2. Episodes of ventricular tachycardia requiring cardioversion. 3. Atrial fibrillation with rapid ventricular rate. 4. History of coronary artery disease. 5. Chronic tobacco use. 6. Hypertension. 7. Troponin 43.40. DISCHARGE DISPOSITION: The patient will be discharged in stable condition with guarded prognosis. Discharge cleared by Cardiology. HISTORY OF PRESENT ILLNESS: This 62-year-old gentleman admitted with chest pain and myocardial infarction, had PCI as mentioned earlier. Patient was treated symptomatically. Patient had multiple also. Patient improved significantly. Cardiology cleared the patient for discharge. On exam, vitals are stable. CARDIOVASCULAR: S1 and S2, muffled. ABDOMEN: Soft. NERVOUS SYSTEM: No focal deficits. DISCHARGE ADVICE: 1. Diet is cardiac. 2. Activity limited until followup. 3. Follow up with Dr. Cobian in 2 to 3 days. 4. Follow up with Cardiology as advised. Medications are: 1. Xanax 0.25 b.i.d. p.r.n. 2. Aspirin 81 mg p.o. daily. 3. Lipitor 80 mg q.h.s. 4. Zestril 10 mg p.o. daily. 5. Metoprolol 25 mg p.o. b.i.d. 6. Habitrol 14 daily. 7. Nitro 0.4 mg p.r.n. 8. Effient 10 mg p.o. daily. Once again, the patient discharged in a stable condition with guarded prognosis. MMODL / IJN: [id number] / MTDGabe
== END 2017-12-08 14:09 | disposition home or self-care (01) | DRG 247 ==
LOC: EC 21:50 → 6ICU 22:02
PROVIDERS: ADMIT Hospitalist; ATTEND Hospitalist
PROC: B2111ZZ Fluoroscopy of Multiple Coronary Arteries using Low Osmolar Contrast (ICD-10-PCS; principal; 2017-12-04 22:27)
PROC: 027034Z Dilation of Coronary Artery, One Artery with Drug-eluting Intraluminal Device, Percutaneous Approach (ICD-10-PCS; principal; 2017-12-04 22:27)
PROC: 4A023N7 Measurement of Cardiac Sampling and Pressure, Left Heart, Percutaneous Approach (ICD-10-PCS; principal; 2017-12-04 22:27)
PROC: B2151ZZ Fluoroscopy of Left Heart using Low Osmolar Contrast (ICD-10-PCS; principal; 2017-12-04 22:27)
DX: I21.4 Non-ST elevation (NSTEMI) myocardial infarction (principal); I47.2 Ventricular tachycardia; T82.855A Stenosis of coronary artery stent, initial encounter; F17.210 Nicotine dependence, cigarettes, uncomplicated; I10 Essential (primary) hypertension; I25.10 Atherosclerotic heart disease of native coronary artery without angina pectoris; I48.91 Unspecified atrial fibrillation; Y83.1 Surgical operation with implant of artificial internal device as the cause of abnormal reaction of the patient, or of later complication, without mention of misadventure at the time of the procedure; Z79.82 Long term (current) use of aspirin; Z80.1 Family history of malignant neoplasm of trachea, bronchus and lung; Z82.49 Family history of ischemic heart disease and other diseases of the circulatory system; Z91.19 Patient's noncompliance with other medical treatment and regimen; Z71.6 Tobacco abuse counseling
CPT/HCPCS: 36415; 71045; 80048; 80053; 80061; 82550; 82553; 83036; 83735; 83880; 84100; 84484; 85025; 85027; 85347; 85610; 85730; 93005; 93306; 93458; 96365; 96374; 96375; 96376; 99291

== ENCOUNTER 2017-12-30 07:30 | Inpatient (IN) | payer OTHER ==
[2018-01-12] MEDS ORDERED: MIDAZOLAM 2 MG/2 ML VIAL ONE ×2 (07:09→08:00)
[2018-01-12] MEDS ORDERED: LIDOCAINE 2% INJ 20 MG/ML (20 ML MDV) ONE ×2 (07:09→07:25)
[2018-01-12] MEDS ORDERED: fentaNYL (PF) 50 MCG/ML 2 ML AMP ONE (07:10)
[2018-01-12] MEDS ORDERED: ASPIRIN 325 MG TAB PO STA (07:15)
[2018-01-12] MEDS ORDERED: SODIUM CHLORIDE 0.9% 1,000 ML in EMPTY BAG 1 BAG IV ONE (07:15)
[2018-01-12] MEDS ORDERED: NITROGLYCERIN SL TABS 0.4 MG TAB SUBLINGUAL PRN ×2 (07:15→09:40)
[2018-01-12] MEDS ORDERED: ALPRAZolam 0.25 MG TAB PO PRN ×2 (07:15→09:41)
[2018-01-12] MEDS ORDERED: ALPRAZolam 0.5 MG TAB PO PRN (07:15)
[2018-01-12] MEDS ORDERED: HEPARIN SODIUM 1,000 UN/ML (10ML VL) ONE (07:26)
[2018-01-12] MEDS ORDERED: LIDOCAINE 2% INJ 20 MG/ML SQ ONE (07:31)
[2018-01-12] MEDS ORDERED: MIDAZOLAM 2 MG/2 ML VIAL IVP ONE (07:34)
[2018-01-12] MEDS ORDERED: fentaNYL (PF) 50 MCG/ML 2 ML AMP IVP ONE (07:34)
[2018-01-12 07:40] LABS: Basophils # (A) 0.1 k/uL (0-0.2); Basophils % (A) 1 %; Eosinophils # (A) 0.2 k/uL (0-0.7); Eosinophils % (A) 3 %; HGB 13.1 gm/dL (13.0-17.5); Lymphocytes % (A) 23 %; MCH 28.5 pg (25.0-35.0); MCHC 32.7 g/dL (31.0-37.0); MCV 87.2 fL (80.0-100.0); Mean Platelet Volume 7.4; Monocytes # (A) 0.6 k/uL (0-1.0); Monocytes % (A) 7 %; Neutrophils # (A) 5.4 k/uL (1.3-7.7); Neutrophils % (A) 65 %; Platelet Count 260 k/uL (150-450); RBC 4.59 m/uL (4.30-5.90); RDW 12.7 % (11.5-15.5); WBC 8.4 k/uL (3.8-10.6)
[2018-01-12] MEDS: HEPARIN SODIUM 1,000 UN/ML (10ML VL) IV ONE ×3 (07:48→08:29)
[2018-01-12] MEDS ORDERED: MIDAZOLAM 2 MG/2 ML VIAL IV ONE (08:01)
[2018-01-12 08:23] LABS: Anion Gap 10 mmol/L; Blood Urea Nitrogen 20 mg/dL (9-20); Calcium 8.5 mg/dL (8.4-10.2); Carbon Dioxide 29 mmol/L (22-30); Chloride 104 mmol/L (98-107); Glucose 99 mg/dL (74-99); Potassium 4.1 mmol/L (3.5-5.1); Sodium 143 mmol/L (137-145)
[2018-01-12] MEDS ORDERED: NITROGLYCERIN 1000MCG/10ML SYRINGE INTRACORON ONE (08:37)
[2018-01-12] MEDS ORDERED: IOPAMIDOL-370 125ML BTL INJ ONE (09:17)
[2018-01-12] MEDS ORDERED: IOPAMIDOL-370 100ML BTL INJ ONE (09:17)
[2018-01-12] MEDS ORDERED: ZOLPIDEM 5 MG TAB PO PRN (09:40)
[2018-01-12] MEDS ORDERED: ATROPINE SULFATE 0.1 MG/ML 10ML SYRINGE IV PRN (09:40)
[2018-01-12] MEDS ORDERED: RX INFO: IV CONTRAST WAS GIVEN 1 EACH MISC MISCELLANE PRN (09:40)
[2018-01-12] MEDS ORDERED: MAG HYDROX/AL HYDROX/SIMETH 30 ML CUP PO PRN (09:40)
[2018-01-12] MEDS ORDERED: SODIUM CHLORIDE 0.9% 1,000 ML IV SCH (09:45)
[2018-01-12 10:27] LABS: Glucose,Whole Blood 93 mg/dL (75-99)
--- NOTE | 2018-01-12 11:28 | PTCA ---
PERCUTANEOUSTRANS CORORONARY ANGIOGRAPHY ANGIOPLASTY PROCEDURE NOTE AND IMPELLA CLINICAL APPLICATIONS MANAGER: Dr. iDana Mr. Davila is a 62-year-old male known history of coronary artery disease, status post inferior myocardial infarction in 2012, recent acute myocardial infarction with totally occluded proximal left circumflex, history of hypertension, hyperlipidemia, family history of coronary artery disease, and peripheral vascular disease who at the time of his most recent event was found to have significant disease involving the proximal LAD as well as proximal and mid right coronary artery. In view of that, recommendation was made regarding angioplasty and stenting. The procedure as well as the risks and complications were discussed with the patient who is in full understanding and agreement. Because of the known baseline ischemic cardiomyopathy as well as the multivessel stenting, Impella placement was recommended. The patient was aware of the plan. PROCEDURE: The patient was brought to catheterization laboratory technician in a fasting semi-sedated state after receiving fentanyl and Benadryl and achieving moderate conscious sedated state. Using Xylocaine anesthesia in the Seldinger technique, a 6-Kittitian sheath was introduced in the right femoral artery. Subsequently, after using a microcatheter to access the left femoral artery that catheter was exchanged over a wire and dilated with dilator up to 12- Kittitian. Following that, a 14-Kittitian Impella sheath was introduced. Following that, a 6-Kittitian tight pigtail catheter was introduced into left ventricle. The wire was exchanged to an Impella wire. The Impella catheter was advanced, positioned in the apex. After initiating hemodynamic support with the Impella catheter, angioplasty and stenting was initiated. The 6-Kittitian FL4 guiding catheter introduced in the system. After cannulating the left main, a 0.014 balanced medium weight J-wire was advanced across the LAD, positioned distally. That catheter was exchanged over a FineCross catheter to a Viper wire. After removing the FineCross, a diamondback 360 orbital atherectomy device was advanced and 4 runs were performed. Following that, that device was removed and the wire was exchanged using the FineCross back to the balanced medium weight J-wire. Subsequently, a 2.75 x 23 mm Xience Alpine stent was deployed postdilated at 16 atmospheres. After the last inflation, after appropriate wait, the balloon and the guidewire were withdrawn back in the guiding catheter. Images were obtained and repeated. Those images reveal stable successful stenting. At that point, 6- Kittitian FR4 guiding catheter was introduced into the system and after cannulating the right coronary ostium, a 0.014 balanced medium weight J-wire was advanced across the lesion and positioned distally. Then, 2.75 x 15 mm Xience Alpine stent was deployed in the mid lesion post dilated at 16 atmospheres. Following that, the balloon was removed and a 3.0 x 15 mm Xience Alpine stent was deployed proximally, postdilated at 16 atmospheres. Following that, the balloon and the guidewire were withdrawn back in the guiding catheter. Images were obtained and repeated. Those images reveal stable successful stenting. Following that, using an Impress Rim 5-Kittitian catheter, a wire was introduced across from the right femoral artery to the left SFA. Following that, an EverCross 3 mm x 40 mm balloon was inflated at 4 atmospheres and using the Perclose that was placed at the start of the procedure and after removing the Impella catheter, the sheath was removed and hemostasis was obtained with deployment of the Perclose and achieving hemostasis. Following that, using the balloon images of the left femoral artery was performed, showed good hemostasis. Following that, the balloon was removed and the right femoral artery sheath was removed and hemostasis was obtained by using Angio-Seal. Following that, the patient was returned to his room in stable condition. Of note, the patient received a total of 8000 units of heparin on multiple boluses after monitoring his ACT. He had EKG changes and chest discomfort with the inflation that resolved at the end of the procedure. RESULT: 1. Successful stenting of the proximal left anterior descending artery in a calcified segment after atherectomy with reduction of stenosis from 80% to 0%. 2. Successful stenting of the mid right coronary artery with reduction of stenosis from 80% to 0%. 3. Successful stenting of the proximal right coronary artery with reduction of stenosis from 70% to 0%. RECOMMENDATION: The patient will be continued on aspirin, Effient, beta blockers, ADRIEN inhibitor and statin. The importance of dual antiplatelet treatment were discussed with the patient and he was in full understanding and agreement. Duration of the procedure is an 1 hour 50 minutes. YOBANY / ANGELICAN: [id number] /
[2018-01-12] MEDS ORDERED: ATORVASTATIN 80 MG TAB PO SCH (21:00)
[2018-01-12] MEDS: METOPROLOL TARTRATE 25 MG TAB PO SCH (21:19)
[2018-01-13 04:46] VITALS: TEMP 97.9
[2018-01-13 04:53] LABS: Anion Gap 13 mmol/L; Blood Urea Nitrogen 18 mg/dL (9-20); Calcium 9.7 mg/dL (8.4-10.2); Carbon Dioxide 31 mmol/L (22-30); Chloride 97 mmol/L (98-107); Glucose 107 mg/dL (74-99); Potassium 4.5 mmol/L (3.5-5.1); Sodium 141 mmol/L (137-145)
[2018-01-13] MEDS: METOPROLOL TARTRATE 25 MG TAB PO SCH (08:25)
--- NOTE | 2018-01-13 08:47 | PN ---
PROGRESS NOTE Mr. Davila is a 62-year-old male with known history of coronary artery disease, who presented with myocardial infarction 4 weeks ago, was found to have a totally occluded circumflex, underwent stenting of that vessel but was found to have significant obstructive disease involving the LAD and the right coronary artery. He was admitted yesterday to undergo elective percutaneous revascularization after use of an Impella support device. He underwent stenting of both vessels. He is doing well this morning. His breathing has been stable. He is denying any chest pain. No dizziness. No palpitation. He denies any nausea. He continued to be in sinus mechanism. He continued be on aspirin once a day, Lipitor 80 mg daily, lisinopril 10 mg daily, metoprolol tartrate 25 mg twice a day, Effient 10 mg daily. PHYSICAL EXAMINATION: Blood pressure 112/60 with the heart in the 60s. LUNGS: Clear. HEART: Regular rate and rhythm. S1, S2. No S3. No rub. ABDOMEN: Soft, nontender. EXTREMITIES: No edema. Both groins no hematoma. LAB DATA: Lab data revealed BUN and creatinine of 18 and 0.9. Potassium 4.5. EKG revealed a sinus mechanism with evidence of intraventricular conduction delay. IMPRESSION: 1. Status post stenting of the left anterior descending artery. 2. Status post stenting of the right coronary artery. 3. Prior myocardial infarction with ischemic cardiomyopathy. 4. Hypertension. 5. Hyperlipidemia. RECOMMENDATION: Patient will be discharged home today and followed in 1 week. MMODL / IJN: [id number] /
[2018-01-13 08:51] VITALS: BP 121/61; PULSE 76; RESP 20
[2018-01-13] MEDS ORDERED: PRASUGREL 10 MG TAB PO SCH (09:00)
[2018-01-13] MEDS ORDERED: ASPIRIN 81 MG PO SCH (09:00)
[2018-01-13] MEDS ORDERED: LISINOPRIL 10 MG TAB PO SCH (09:00)
[2018-01-13 09:28] VITALS: BMI 23.8
== END 2018-01-13 10:58 | disposition home or self-care (01) | DRG 215 ==
LOC: EDSTATUS 07:30 → 2ORMAIN 01-12 06:37 → 6ICU 01-12 09:33
PROVIDERS: ADMIT Internal Medicine Interventional Cardiology; ATTEND Internal Medicine Interventional Cardiology
PROC: 5A0221D Assistance with Cardiac Output using Impeller Pump, Continuous (ICD-10-PCS; principal; 2018-01-12 07:18)
PROC: 02HA3RJ Insertion of Short-term External Heart Assist System into Heart, Intraoperative, Percutaneous Approach (ICD-10-PCS; principal; 2018-01-12 07:18)
PROC: 027136Z Dilation of Coronary Artery, Two Arteries with Three Drug-eluting Intraluminal Devices, Percutaneous Approach (ICD-10-PCS; principal; 2018-01-12 07:18)
PROC: X2C0361 Extirpation of Matter from Coronary Artery, One Artery using Orbital Atherectomy Technology, Percutaneous Approach, New Technology Group 1 (ICD-10-PCS; principal; 2018-01-12 07:18)
DX: I25.10 Atherosclerotic heart disease of native coronary artery without angina pectoris (principal); I11.9 Hypertensive heart disease without heart failure; E78.2 Mixed hyperlipidemia; I73.9 Peripheral vascular disease, unspecified; F17.210 Nicotine dependence, cigarettes, uncomplicated; I25.5 Ischemic cardiomyopathy; Z79.899 Other long term (current) drug therapy; Z82.49 Family history of ischemic heart disease and other diseases of the circulatory system; Z79.82 Long term (current) use of aspirin; Z95.5 Presence of coronary angioplasty implant and graft; I25.2 Old myocardial infarction; Z71.6 Tobacco abuse counseling
CPT/HCPCS: 80048; 85025; 85347

== ENCOUNTER → 2019-11-01 | Outpatient (CLI) | payer OTHER ==
--- NOTE | 2019-11-01 18:02 | CTL ---
EXAMINATION TYPE: CT Low Dose Lung DATE OF EXAM ORDERED: 11/01/2019 HISTORY: Lung cancer screening CT DLP: 83.[address] CTDI: 2.1 mGy Automated exposure control for dose reduction was used. SCREENING VISIT: History of tobacco use COMPARISON: None TECHNIQUE: Low dose computed tomography scan was performed through the chest at 1 mm thick sections a nd reconstructed images in the coronal plane at [address] DIAGNOSTIC QUALITY: Satisfactory FINDINGS: LUNG NODULES: 4 mm nodule along the left costophrenic angle. There is a subpleural nodule involving the posterior segment right upper lobe axial image 167 measuri ng 5 mm. LUNGS: Findings compatible with COPD are noted. No consolidative pneumonia. No diagnostic evidence of chroni c interstitial lung disease. Subsegmental changes involving the lung bases most typical of atelectasi s. Linear density anterior segment right lower lobe appears post inflammatory. PLEURAL SPACE: Biapical pleural thickening with no evidence of calcification. No pleural effusion or pneumothorax. HEART: The heart is mildly enlarged and there is dense coronary artery calcification. Three-vessel. Aorta of normal caliber with atherosclerotic changes. No pericardial effusion. OTHER FINDINGS: Hypertrophic and severe degenerative disc disease noted. Structures of the upper abdomen demonstrate limited visualization no definite abnormality. Small hiatal hernia noted IMPRESSION: 1. There are 2 pulmonary nodules noted measuring 5 mm or less which are nonspecific. 2 small to carmenza cterize. 2. COPD. 3. Dense three-vessel coronary artery atherosclerotic changes. FOLLOW UP CT CHEST RECOMMENDATION: 1 year follow-up recommended CT LUNG RAD: Lung-Rad 2 Benign Appearance or Behavior
== END | disposition home or self-care (01) ==
LOC: RADCTMAIN 16:10
DX: Z12.2 Encounter for screening for malignant neoplasm of respiratory organs (principal); R91.1 Solitary pulmonary nodule; J44.9 Chronic obstructive pulmonary disease, unspecified; I25.10 Atherosclerotic heart disease of native coronary artery without angina pectoris; F17.210 Nicotine dependence, cigarettes, uncomplicated

== ENCOUNTER 2020-02-07 01:32 | Observation (INO) | payer OTHER ==
[2020-02-07 01:44] VITALS: RESP 18
[2020-02-07 02:04] LABS: Basophils # (A) 0.1 k/uL (0-0.2); Basophils % (A) 1 %; Eosinophils # (A) 0.3 k/uL (0-0.7); Eosinophils % (A) 3 %; HCT 37.5 % (39.0-53.0); HGB 13.2 gm/dL (13.0-17.5); Lymphocytes # (A) 1.7 k/uL (1.0-4.8); Lymphocytes % (A) 18 %; MCH 31.2 pg (25.0-35.0); MCHC 35.2 g/dL (31.0-37.0); MCV 88.6 fL (80.0-100.0); Mean Platelet Volume 7.2; Monocytes # (A) 0.5 k/uL (0-1.0); Monocytes % (A) 6 %; Neutrophils # (A) 6.8 k/uL (1.3-7.7); Neutrophils % (A) 72 %; Platelet Count 265 k/uL (150-450); RBC 4.23 m/uL (4.30-5.90); RDW 12.7 % (11.5-15.5); WBC 9.5 k/uL (3.8-10.6)
--- NOTE | 2020-02-07 02:04 | ED ---
Chest Pain HPI - General Chief Complaint: Chest Pain Stated Complaint: Chest Pain Source: patient, EMS Mode of arrival: EMS Limitations: no limitations - History of Present Illness Initial Comments: The patient is a 64-year-old male with past medical history of coronary artery disease who presents emergency Department with reported chest pain. He states that he was relaxing at home when he had sudden onset of pain in his bilateral armpits which spanned across does chest. He had bilateral upper extremity tingling and he felt mildly short of breath. He reports a history of similar in the past when he had a heart attack. He doesn't have a history of 2 previous MIs. First of which was in 2011 where he had one stent placed. The patient then had a STEMI with V. fib arrest in 2018 for which one stent was immediately placed and 2 stents were placed 4 weeks later. He sees Dr. Lobo in the office. Last appointment was one month ago. At that time he had a nuclear med icine stress test which was normal. The patient denies any calf pain or swelling. No lower extremity edema. No ripping or tearing sensation to his back. Denies fevers, chills or cough. The patient did take 2 nitro and his pain completely resolved. EMS did provide him with 4 baby aspirins. Because of the similarity between his symptoms at this time with the pain he experienced when he had his heart attack in 2018, he came to the emergency room for evaluation. There are no alleviating, precipitating or modifying factors - Related Data Home Medications Medication Instructions Recorded Confirmed ALPRAZolam [Xanax] 0.25 mg PO BID PRN 01/09/18 01/12/18 Acetaminophen [Tylenol] 650 mg PO DAILY PRN 01/09/18 01/12/18 Aspirin 325 mg PO DAILY 01/09/18 01/12/18 Previous Rx's Medication Instructions Recorded Atorvastatin [Lipitor] 80 mg PO HS #30 tab 12/08/17 Lisinopril [Zestril] 10 mg PO DAILY #30 tab 12/08/17 Metoprolol Tartrate [Lopressor] 25 mg PO BID #60 tab 12/08/17 Nitroglycerin Sl Tabs [Nitrostat] 0.4 mg SUBLINGUAL Q5M PRN #25 tab 12/08/17 Prasugrel [Effient] 10 mg PO DAILY #30 tab 12/08/17 Allergies Allergy/AdvReac Type Severity Reaction Status Date / Time No Known Allergies Allergy Verified 01/12/18 10:17 Review of Systems ROS Statement: Those systems with pertinent positive or pertinent negative responses have been documented in the HPI. ROS Other: All systems not noted in ROS Statement are negative. EKG Findings - EKG Comments: EKG Findings:: EKG demonstrates normal sinus rhythm with a ventricular rate of 64. MI interval 150. QRS 90. QTC of 439. Left axis deviation. Peak T waves in V3 and V4. No acute ST segment elevations. Slight ST depression in aVL. Past Medical History Past Medical History: Coronary Artery Disease (CAD), Hypertension, Myocardial Infarction (MT) Last Myocardial Infarction Date:: 12/04/17 History of Any Multi-Drug Resistant Organisms: None Reported Past Surgical History: Heart Catheterization With Stent Additional Past Surgical History / Comment(s): n/a Past Anesthesia/Blood Transfusion Reactions: No Reported Reaction Date of Last Stent Placement:: 12/04/17 Past Psychological History: No Psychological Hx Reported Smoking Status: Current every day smoker Past Alcohol Use History: None Reported Past Drug Use History: Marijuana - Past Family History Father Family Medical History: Myocardial Infarction (MT) Additional Family Medical History / Comment(s): smoker, lung CA Mother Family Medical History: No Reported History General Exam Limitations: no limitations Course Vital Signs 02/07/20 02/07/20 01:41 01:45 Temperature 98.5 F Pulse Rate 73 Pulse Rate [ 67 Leasing Agent ] Respiratory 18 Rate Blood Pressure 137/68 O2 Sat by Pulse 97 Oximetry Chest Pain MDM - MDM Upon arrival the patient is placed into room 2. A thorough history and physical exam was performed. The EKG was performed which demonstrates a normal sinus rhythm. No acute ST segment elevation or depression. Peripheral IV was established. Laboratory studies were conducted. Patient's troponin is 0.025. Remainder CBC, CMP and coagulation studies are normal. Coronal virus is not detected. Chest x-ray demonstrates no acute intrathoracic process. The patient remains on telemetry monitoring. No signs of ectopy. The patient has not had any return of his pain. Because of the patient's previous cardiac history did recommend hospital admission with cardiology consult. I will heparinize the patient as he has no contraindications. The patient did agree to this and he was admitted to [facility]. Case discussed with Dr. Sheet Disposition Clinical Impression: Chest pain, History of ASCVD Disposition: ADMITTED IP TO THIS HOSP Condition: Stable Is patient prescribed a controlled substance at d/c from ED?: No Referrals: [facility],Clinic [Primary Care Provider] - 1-2 days Decision to Admit Reason: Admit from EC Decision Date: 02/07/20 Decision Time: 02:43
[2020-02-07 02:14] LABS: ALT 22 U/L (4-49); AST 26 U/L (17-59); African American GFR (CKD) >90 (>60 ml/min/1.73 sqM); Alkaline Phosphatase 71 U/L (38-126); Anion Gap 7 mmol/L; Blood Urea Nitrogen 21 mg/dL (9-20); Calcium 8.8 mg/dL (8.4-10.2); Carbon Dioxide 25 mmol/L (22-30); Chloride 105 mmol/L (98-107); Glucose 105 mg/dL (74-99); Magnesium 1.8 mg/dL (1.6-2.3); Non-African American GFR(CKD) >90 (>60 ml/min/1.73 sqM); Sodium 137 mmol/L (137-145); Total Bilirubin 0.5 mg/dL (0.2-1.3); Total Protein 6.6 g/dL (6.3-8.2)
--- NOTE | 2020-02-07 02:24 | XR ---
EXAMINATION TYPE: XR chest 2V DATE OF EXAM: 02/07/2020 COMPARISON: 12/04/2017 HISTORY: Chest pain TECHNIQUE: 2 views FINDINGS: Heart is normal. Lungs are clear of infiltrate. There are no hilar masses. Costophrenic ang les are clear. Bony thorax is intact. There is mild spurring in the lower thoracic spine. IMPRESSION: No active cardiopulmonary disease. No change.
[2020-02-07 02:36] LABS: INR 1.1 (<1.2); Partial Thromboplastin Time 22.2 sec (22.0-30.0); Prothrombin Time 10.9 sec (9.0-12.0)
[2020-02-07] MEDS ORDERED: HEPARIN SODIUM,PORCINE 5,000 UNIT/ML 1 ML VIAL IV PRN (02:42)
[2020-02-07] MEDS ORDERED: HEPARIN SODIUM,PORCINE 5,000 UNIT/ML 1 ML VIAL IV ONE (02:42)
[2020-02-07] MEDS ORDERED: NALOXONE 0.4 MG/ML 1 ML VIAL IV PRN (02:43)
[2020-02-07] MEDS ORDERED: HEPARIN SOD,PORK IN 0.45% NACL 25,000 UNIT in 0.45% NACL 1 250ML.BAG IV SCH (02:45)
[2020-02-07] MEDS ORDERED: SODIUM CHLORIDE 0.9% 1,000 ML IV SCH (03:15)
[2020-02-07] MEDS ORDERED: LISINOPRIL 5 MG TAB PO SCH (11:00)
[2020-02-07 11:06] VITALS: TEMP 97
--- NOTE | 2020-02-07 11:27 | P.CRDCN ---
<Merly London - Last Filed: 02/07/20 10:57> History of Present Illness History of present illness: This is Merly London PA-C dictating a consult on this patient The patient was interviewed and examined by Dr. Layne HPI Patient is a 64-year-old male with a history significant for CAD status post stenting, prior ME, ischemic cardiomyopathy, hypertension and dyslipidemia who presented with complaints of chest discomfort. He follows with Dr. Lobo in the office. He states that yesterday he was sitting at home when he felt the sudden onset of chest discomfort in his arm pits and across his chest. He also felt dizzy and felt like his heart was pounding and he was short of breath. He states that these symptoms are similar to the symptoms he had any as had an ME in the past. He also states that he was doing some heavy lifting a few days ago and he hurt his back. He has pain between his shoulder blades. He has not taken his metoprolol or lisinopril for the last few days because he ran out. Recent nuclear stress test last month was negative for reversible ischemia. On arrival to the emergency department his vital signs were stable. EKG shows sinus mechanism with incomplete right bundle mekhi block, left axis deviation, and no acute ST segment or T-wave abnormalities. Troponins normal 2. He was admitted for further workup. He currently has no chest pain. He still has pain in his back between his shoulder blades. ROS: No fevers, chills or rigors, no cough, phlegm or expectoration, no nausea, vomiting or diarrhea, no hematuria, dysuria, Positive for back pain, no strokes or seizures, no skin lesions. EXAMINATION: The patient was examined by Dr. Layne Patient is afebrile, pulse in the 60s, respirations 18, blood pressure 151/74, oxygen saturation 99% on room air Heart is regular, no audible murmurs Lungs clear to auscultation bilaterally, no wheezing rhonchi or crackles No elevated JVD No lower extremity edema Abdomen soft and nontender to palpation REVIEW OF LABS, ECG & MEDICAL DATA WBC 9.5, hemoglobin 13.2, platelets 265, potassium 4.0, BUN 21, creatinine 0.90 Troponin 0.028, 0.025 Coronavirus negative Echocardiogram in November 2019 shows EF 46% IMPRESSION / ASSESSMENT: Symptoms of chest discomfort, shortness of breath, dizziness, and palpitations, troponins normal 2, no acute changes on EKG, recent nuclear stress test negative for reversible ischemia, awaiting 3rd troponin History of CAD status post stenting to the LAD and RCA History of prior ME Ischemic cardiomyopathy, EF 46% Hypertension Dyslipidemia PLAN: reduce metoprolol to 12.5 mg BID Resume all other home cardiac meds monitor for bradycardia check TSH follow up in the office with Dr. Lobo, follow up holter monitor may be picked up when he follows up Past Medical History Past Medical History: Coronary Artery Disease (CAD), Hypertension, Myocardial Infarction (ME) Last Myocardial Infarction Date:: 12/04/17 History of Any Multi-Drug Resistant Organisms: None Reported Past Surgical History: Heart Catheterization With Stent Additional Past Surgical History / Comment(s): n/a Past Anesthesia/Blood Transfusion Reactions: No Reported Reaction Date of Last Stent Placement:: 12/04/17 Past Psychological History: No Psychological Hx Reported Smoking Status: Current every day smoker Past Alcohol Use History: None Reported Additional Past Alcohol Use History / Comment(s): smoker since age 22 smoked 40 years 1ppd attempting to quit Past Drug Use History: Marijuana Additional Drug Use History / Comment(s): smokes Stayful rarely - Past Family History Father Family Medical History: Myocardial Infarction (ME) Additional Family Medical History / Comment(s): smoker, lung CA Mother Family Medical History: No Reported History Medications and Allergies Home Medications Medication Instructions Recorded Confirmed Type Atorvastatin [Lipitor] 80 mg PO HS #30 tab 12/08/17 02/07/20 Rx Nitroglycerin Sl Tabs [Nitrostat] 0.4 mg SUBLINGUAL Q5M PRN #25 tab 12/08/17 02/07/20 Rx Acetaminophen [Tylenol] 650 mg PO Q8H PRN 01/09/18 02/07/20 History Aspirin 325 mg PO DAILY 01/09/18 02/07/20 History Famotidine [Pepcid] 20 mg PO BID #30 tablet 02/07/20 Rx Ibuprofen [Motrin Ib] 400 mg PO Q8H PRN 02/07/20 02/07/20 History Lisinopril [Prinivil] 5 mg PO DAILY 02/07/20 02/07/20 History Metoprolol Tartrate [Lopressor] 12.5 mg PO BID tab 02/07/20 Rx Allergies Allergy/AdvReac Type Severity Reaction Status Date / Time No Known Allergies Allergy Verified 02/07/20 09:29 Physical Exam Vitals: Vital Signs Temp Pulse Pulse Resp BP BP Pulse Ox 02/07/20 04:00 97.6 F 64 18 151/74 99 02/07/20 01:45 67 02/07/20 01:41 98.5 F 73 18 137/68 97 Intake and Output 02/06/20 02/07/20 02/07/20 22:59 06:59 14:59 Output Total 410 Balance -410 Output: Urine 410 Other: # Voids 2 # Bowel Movements 1 Weight 68.3 kg Results 02/07/20 01:58 02/07/20 01:53 Cardiac Enzymes 02/07/20 02/07/20 02/07/20 Range/Units 01:53 01:53 08:16 AST 26 (17-59) U/L Troponin I 0.025 0.028 (0.000-0.034) ng/mL Coagulation 02/07/20 02/07/20 Range/Units 01:53 08:16 PT 10.9 (9.0-12.0) sec APTT 22.2 36.5 H (22.0-30.0) sec CBC 02/07/20 Range/Units 01:58 WBC 9.5 (3.8-10.6) k/uL RBC 4.23 L (4.30-5.90) m/uL Hgb 13.2 (13.0-17.5) gm/dL Hct 37.5 L (39.0-53.0) % Plt Count 265 (150-450) k/uL Comprehensive Metabolic Panel 02/07/20 Range/Units 01:53 Sodium 137 (137-145) mmol/L Potassium 4.0 (3.5-5.1) mmol/L Chloride 105 (98-107) mmol/L Carbon Dioxide 25 (22-30) mmol/L BUN 21 H (9-20) mg/dL Creatinine 0.90 (0.66-1.25) mg/dL Glucose 105 H (74-99) mg/dL Calcium 8.8 (8.4-10.2) mg/dL AST 26 (17-59) U/L ALT 22 (4-49) U/L Alkaline Phosphatase 71 (38-126) U/L Total Protein 6.6 (6.3-8.2) g/dL Albumin 4.0 (3.5-5.0) g/dL Current Medications Generic Name Dose Route Start Last Admin Trade Name Denverq PRN Reason Stop Dose Admin Aspirin 81 mg 02/08/20 09:00 Aspirin PO DAILY [facility] Atorvastatin Calcium 80 mg 02/07/20 21:00 Lipitor PO HS [facility] Heparin Sodium (Porcine) 0 unit 02/07/20 02:42 Heparin IV PER PROTOCOL PRN Low PTT Protocol Heparin Sodium/Sodium Chloride 250 mls @ 8.165 mls/hr 02/07/20 02:45 02/07/20 03:11 25,000 unit/ Sodium Chloride IV 12 units/kg/hr .Q24H FILIPE 8.165 mls/hr Administration Protocol 12 UNITS/KG/HR Sodium Chloride 1,000 mls @ 75 mls/hr 02/07/20 03:15 02/07/20 03:10 Saline 0.9% IV 75 mls/hr .[id number] FILIPE Administration Lisinopril 5 mg 02/07/20 11:00 Zestril PO DAILY [facility] Metoprolol Tartrate 12.5 mg 02/07/20 21:00 Lopressor PO BID [facility] Naloxone HCl 0.2 mg 02/07/20 02:43 Narcan IV Q2M PRN Opioid Reversal Intake and Output 02/06/20 02/07/20 02/07/20 22:59 06:59 14:59 Output Total 410 Balance -410 Output: Urine 410 Other: # Voids 2 # Bowel Movements 1 Weight 68.3 kg 02/07/20 01:58 02/07/20 01:53 <Luis Antonio Layne - Last Filed: 02/07/20 11:27> Physical Exam Vitals: Vital Signs Temp Pulse Pulse Resp BP BP Pulse Ox 02/07/20 08:00 97.0 F L 53 L 134/80 100 02/07/20 04:00 97.6 F 64 18 151/74 99 02/07/20 01:45 67 02/07/20 01:41 98.5 F 73 18 137/68 97 Intake and Output 02/06/20 02/07/20 02/07/20 22:59 06:59 14:59 Output Total 410 Balance -410 Output: Urine 410 Other: # Voids 2 # Bowel Movements 1 Weight 68.3 kg Results 02/07/20 01:58 02/07/20 01:53 Cardiac Enzymes 02/07/20 02/07/20 02/07/20 Range/Units 01:53 01:53 08:16 AST 26 (17-59) U/L Troponin I 0.025 0.028 (0.000-0.034) ng/mL Coagulation 02/07/20 02/07/20 Range/Units 01:53 08:16 PT 10.9 (9.0-12.0) sec APTT 22.2 36.5 H (22.0-30.0) sec CBC 02/07/20 Range/Units 01:58 WBC 9.5 (3.8-10.6) k/uL RBC 4.23 L (4.30-5.90) m/uL Hgb 13.2 (13.0-17.5) gm/dL Hct 37.5 L (39.0-53.0) % Plt Count 265 (150-450) k/uL Comprehensive Metabolic Panel 02/07/20 Range/Units 01:53 Sodium 137 (137-145) mmol/L Potassium 4.0 (3.5-5.1) mmol/L Chloride 105 (98-107) mmol/L Carbon Dioxide 25 (22-30) mmol/L BUN 21 H (9-20) mg/dL Creatinine 0.90 (0.66-1.25) mg/dL Glucose 105 H (74-99) mg/dL Calcium 8.8 (8.4-10.2) mg/dL AST 26 (17-59) U/L ALT 22 (4-49) U/L Alkaline Phosphatase 71 (38-126) U/L Total Protein 6.6 (6.3-8.2) g/dL Albumin 4.0 (3.5-5.0) g/dL Current Medications Generic Name Dose Route Start Last Admin Trade Name Freq PRN Reason Stop Dose Admin Aspirin 81 mg 02/08/20 09:00 Aspirin PO DAILY [facility] Atorvastatin Calcium 80 mg 02/07/20 21:00 Lipitor PO HS [facility] Heparin Sodium (Porcine) 0 unit 02/07/20 02:42 Heparin IV PER PROTOCOL PRN Low PTT Protocol Heparin Sodium/Sodium Chloride 250 mls @ 8.165 mls/hr 02/07/20 02:45 02/07/20 03:11 25,000 unit/ Sodium Chloride IV 12 units/kg/hr .Q24H FILIPE 8.165 mls/hr Administration Protocol 12 UNITS/KG/HR Sodium Chloride 1,000 mls @ 75 mls/hr 02/07/20 03:15 02/07/20 03:10 Saline 0.9% IV 75 mls/hr .[id number] FILIPE Administration Lisinopril 5 mg 02/07/20 11:00 Zestril PO DAILY [facility] Metoprolol Tartrate 12.5 mg 02/07/20 21:00 Lopressor PO BID [facility] Naloxone HCl 0.2 mg 02/07/20 02:43 Narcan IV Q2M PRN Opioid Reversal Intake and Output 02/06/20 02/07/20 02/07/20 22:59 06:59 14:59 Output Total 410 Balance -410 Output: Urine 410 Other: # Voids 2 # Bowel Movements 1 Weight 68.3 kg 02/07/20 01:58 02/07/20 01:53
--- NOTE | 2020-02-07 12:01 | P.HPIM ---
History of Present Illness 64-year-old male with known history of coronary tree disease and previous stenting and ischemic myopathy came in with complaints of bilateral arm pain and under arm pain along with back pain radiating to the front circumferential chest pain going on for last few days mostly at nighttime with some relief to nitroglycerin patient was also be dizzy. Patient felt his heart rate is slow and pounding. Patient is definitely bradycardic here. Patient denied any shortness of breath, diaphoresis associated with that patient had a recent stress test that was negative troponins are within normal limits no acute ST-T wave changes in the EKG patient chest pain is not associated with food nonpleuritic in nature denied any cough. Patient appears to have musculoskeletal chest pain from cervical thoracic degenerative vertebral disease. Patient does take ibuprofen at home. Review of Systems REVIEW OF SYSTEMS: CONSTITUTIONAL: No fever, no malaise, no fatigue. HEENT: No recent visual problems or hearing problems. Denied any sore throat. CARDIOVASCULAR: No orthopnea, PND, no palpitations, no syncope. PULMONARY: No shortness of breath, no cough, no hemoptysis. GASTROINTESTINAL: No diarrhea, no nausea, no vomiting, no abdominal pain. NEUROLOGICAL: No headaches, no weakness, no numbness. HEMATOLOGICAL: Denies any bleeding or petechiae. GENITOURINARY: Denies any burning micturition, frequency, or urgency. MUSCULOSKELETAL/RHEUMATOLOGas mentioned in HPI OCRINE: Denies any polyuria or polydipsia. The rest of the 14-point review of systems is negative. Past Medical History Past Medical History: Coronary Artery Disease (CAD), Hypertension, Myocardial Infarction (ME) Last Myocardial Infarction Date:: 12/04/17 History of Any Multi-Drug Resistant Organisms: None Reported Past Surgical History: Heart Catheterization With Stent Additional Past Surgical History / Comment(s): n/a Past Anesthesia/Blood Transfusion Reactions: No Reported Reaction Date of Last Stent Placement:: 12/04/17 Past Psychological History: No Psychological Hx Reported Smoking Status: Current every day smoker Past Alcohol Use History: None Reported Additional Past Alcohol Use History / Comment(s): smoker since age 22 smoked 40 years 1ppd attempting to quit Past Drug Use History: Marijuana Additional Drug Use History / Comment(s): smokes marijuanna rarely - Past Family History Father Family Medical History: Myocardial Infarction (ME) Additional Family Medical History / Comment(s): smoker, lung CA Mother Family Medical History: No Reported History Medications and Allergies Home Medications Medication Instructions Recorded Confirmed Type Atorvastatin [Lipitor] 80 mg PO HS #30 tab 12/08/17 02/07/20 Rx Nitroglycerin Sl Tabs [Nitrostat] 0.4 mg SUBLINGUAL Q5M PRN #25 tab 12/08/17 02/07/20 Rx Acetaminophen [Tylenol] 650 mg PO Q8H PRN 01/09/18 02/07/20 History Aspirin 325 mg PO DAILY 01/09/18 02/07/20 History Famotidine [Pepcid] 20 mg PO BID #30 tablet 02/07/20 Rx Ibuprofen [Motrin Ib] 400 mg PO Q8H PRN 02/07/20 02/07/20 History Lisinopril [Prinivil] 5 mg PO DAILY 02/07/20 02/07/20 History Metoprolol Tartrate [Lopressor] 12.5 mg PO BID tab 02/07/20 Rx Allergies Allergy/AdvReac Type Severity Reaction Status Date / Time No Known Allergies Allergy Verified 02/07/20 09:29 Physical Exam Vitals: Vital Signs Temp Pulse Pulse Resp BP BP Pulse Ox 02/07/20 08:00 97.0 F L 53 L 134/80 100 02/07/20 04:00 97.6 F 64 18 151/74 99 02/07/20 01:45 67 02/07/20 01:41 98.5 F 73 18 137/68 97 Intake and Output 02/06/20 02/07/20 02/07/20 22:59 06:59 14:59 Output Total 410 Balance -410 Output: Urine 410 Other: # Voids 2 # Bowel Movements 1 Weight 68.3 kg PHYSICAL EXAMINATION: GENERAL: The patient is alert and oriented x3, not in any acute distress. Well developed, well nourished. HEENT: Pupils are round and equally reacting to light. EOMI. No scleral icterus. No conjunctival pallor. Normocephalic, atraumatic. No pharyngeal erythema. No thyromegaly. CARDIOVASCULAR: S1 and S2 present. No murmurs, rubs, or gallops. PULMONARY: Chest is clear to auscultation, no wheezing or crackles. ABDOMEN: Soft, nontender, nondistended, normoactive bowel sounds. No palpable organomegaly. MUSCULOSKELETAL: No joint swelling or deformity. EXTREMITIES: No cyanosis, clubbing, or pedal edema. NEUROLOGICAL: Gross neurological examination did not reveal any focal deficits. SKIN: No rashes. Results CBC & Chem 7: 02/07/20 01:58 02/07/20 01:53 Labs: Abnormal Lab Results - Last 24 Hours (Table) 02/07/20 02/07/20 02/07/20 Range/Units 01:53 01:53 01:58 RBC 4.23 L (4.30-5.90) m/uL Hct 37.5 L (39.0-53.0) % APTT (22.0-30.0) sec BUN 21 H (9-20) mg/dL Glucose 105 H (74-99) mg/dL TSH 6.400 H (0.465-4.680) mIU/L 02/07/20 Range/Units 08:16 RBC (4.30-5.90) m/uL Hct (39.0-53.0) % APTT 36.5 H (22.0-30.0) sec BUN (9-20) mg/dL Glucose (74-99) mg/dL TSH (0.465-4.680) mIU/L Thrombosis Risk Factor Assmnt - Choose All That Apply Each Risk Factor Represents 2 Points: Age 61-74 years Thrombosis Risk Factor Assessment Total Risk Factor Score: 2 Thrombosis Risk Factor Assessment Level: Low Risk Assessment and Plan Plan: -Chest pain: Appears to be noncardiac atypical appears to be musculoskeletal in nature. We ruled out a concurrent syndromes and patient is cleared by cardiology. Patient will resume and continue his ibuprofen I gave him as needed Pepcid for heartburn if at all he has any. Patient will benefit from physical therapy. -Mild dizziness probably secondary to bradycardia cutting down the dose of beta mark -Coronary artery disease stents to LAD and RCA -Ischemic myopathy of around 46% chronic systolic dysfunction without any acute exacerbation -Hypertension -Dyslipemia -Elevated TSH will obtain T4 this can be followed as an outpatient Patient will be discharged today.
--- NOTE | 2020-02-07 12:01 | P.DS ---
Providers Date of admission: 02/07/20 02:43 Attending physician: Denis Mcwilliams MD Consults: 02/07/20 02:44 Consult Physician Urgent Consulting Provider: [facility] Consult Reason/Comments: acute chest pain, hx ascad Do you want consulting provider notified?: Yes Primary care physician: [facility] Hospital Course: Please refer to HPI for further details Patient Condition at Discharge: Stable Plan - Discharge Summary New Discharge Prescriptions: New Famotidine [Pepcid] 20 mg PO BID #30 tablet Metoprolol Tartrate [Lopressor] 12.5 mg PO BID tab Continue Atorvastatin [Lipitor] 80 mg PO HS #30 tab Nitroglycerin Sl Tabs [Nitrostat] 0.4 mg SUBLINGUAL Q5M PRN #25 tab PRN Reason: Chest Pain Acetaminophen [Tylenol] 650 mg PO Q8H PRN PRN Reason: Pain Aspirin 325 mg PO DAILY Ibuprofen [Motrin Ib] 400 mg PO Q8H PRN PRN Reason: Pain Lisinopril [Prinivil] 5 mg PO DAILY Discontinued Metoprolol Tartrate [Lopressor] 25 mg PO BID #60 tab Discharge Medication List Atorvastatin [Lipitor] 80 mg PO HS #30 tab 12/08/17 [Rx] Nitroglycerin Sl Tabs [Nitrostat] 0.4 mg SUBLINGUAL Q5M PRN #25 tab 12/08/17 [Rx] Acetaminophen [Tylenol] 650 mg PO Q8H PRN 01/09/18 [History] Aspirin 325 mg PO DAILY 01/09/18 [History] Famotidine [Pepcid] 20 mg PO BID #30 tablet 02/07/20 [Rx] Ibuprofen [Motrin Ib] 400 mg PO Q8H PRN 02/07/20 [History] Lisinopril [Prinivil] 5 mg PO DAILY 02/07/20 [History] Metoprolol Tartrate [Lopressor] 12.5 mg PO BID tab 02/07/20 [Rx] Follow up Appointment(s)/Referral(s): [facility] [Primary Care Provider] - 3 Days Discharge Disposition: HOME SELF-CARE
[2020-02-07 13:58] VITALS: BP 161/79; PULSE 64
[2020-02-07 14:01] LABS: T4, Free (Free Thyroxine) 1.23 ng/dL (0.78-2.19)
[2020-02-07] MEDS ORDERED: METOPROLOL TARTRATE 12.5 MG TAB PO SCH (21:00)
[2020-02-07] MEDS ORDERED: ATORVASTATIN 80 MG TAB PO SCH (21:00)
[2020-02-08] MEDS ORDERED: ASPIRIN 81 MG PO SCH (09:00)
== END 2020-02-07 14:49 | disposition home or self-care (01) ==
LOC: EC 01:32 → 3SCARD 02:43
PROVIDERS: ADMIT Internal Medicine; ATTEND Internal Medicine
DX: R07.89 Other chest pain (principal); I25.10 Atherosclerotic heart disease of native coronary artery without angina pectoris; I25.2 Old myocardial infarction; I11.0 Hypertensive heart disease with heart failure; I50.22 Chronic systolic (congestive) heart failure; I25.5 Ischemic cardiomyopathy; E78.5 Hyperlipidemia, unspecified; F17.200 Nicotine dependence, unspecified, uncomplicated; Z86.74 Personal history of sudden cardiac arrest; Z03.818 Encounter for observation for suspected exposure to other biological agents ruled out; Z79.02 Long term (current) use of antithrombotics/antiplatelets; Z79.82 Long term (current) use of aspirin; Z79.899 Other long term (current) drug therapy; Z80.1 Family history of malignant neoplasm of trachea, bronchus and lung; Z82.49 Family history of ischemic heart disease and other diseases of the circulatory system; Z95.5 Presence of coronary angioplasty implant and graft; M79.622 Pain in left upper arm; M79.621 Pain in right upper arm; R42 Dizziness and giddiness; R94.6 Abnormal results of thyroid function studies
CPT/HCPCS: 96374; 99285; 36415; 93005; 84439; 80053; 84443; 83735; 84484; 85025; 85610; 85730; 87635; 71046; G0378; J1644 ×2

== ENCOUNTER → 2021-03-22 | Outpatient (CLI) | payer OTHER ==
--- NOTE | 2021-03-23 04:43 | MR ---
EXAMINATION TYPE: MR shoulder RT wo con DATE OF EXAM: 03/22/2021 COMPARISON: None HISTORY: Right shoulder pain for 2 months after injury. Multiplanar multiecho imaging of the right shoulder was performed without contrast. There is small amount of fluid around the biceps tendon. The subscapularis tendon is intact. There is some fluid signal within the supraspinatus muscle. There is full-thickness vertical defect through t he supraspinatus tendon over the top of the humeral head. There is spurring and fluid at the AC joint . There is mild subacromial joint space narrowing and impingement. There is no significant retraction of the supraspinatus tendon. Glenoid klever appear intact. There is small amount of fluid in the subdeltoid bursa. There is small s houlder joint effusion. There is no evidence of a fracture. IMPRESSION: Large vertical tear through the supraspinatus tendon. The anterior posterior defect measures 1.7 cm. Subacromial impingement. Mild shoulder joint effusion and subdeltoid effusion.
== END | disposition home or self-care (01) ==
LOC: RADMRIMAIN 16:41
PROVIDERS: ATTEND Physician Assistant
DX: M75.111 Incomplete rotator cuff tear or rupture of right shoulder, not specified as traumatic (principal)

== ENCOUNTER → 2021-05-10 | Outpatient (CLI) | payer OTHER ==
--- NOTE | 2021-05-10 14:30 | CTL ---
EXAMINATION TYPE: CT Low Dose Lung DATE OF EXAM ORDERED: 05/10/2021 HISTORY: Personal tobacco use. Lung cancer screening CT DLP: 109.[address] CTDI: 2.8 mGy Automated exposure control for dose reduction was used. SCREENING VISIT: Subsequent COMPARISON: 11/01/2019 TECHNIQUE: Low dose computed tomography scan was performed through the chest at 1 mm thick sections a nd reconstructed images in the coronal plane at [address] DIAGNOSTIC QUALITY: Satisfactory FINDINGS: LUNG NODULES: None. LUNGS: COPD: Severity: None Fibrosis: Severity: None Lymph nodes: None Other findings: None RIGHT PLEURAL SPACE: Effusion: None Calcification: None Thickening: None Pneumothorax: None LEFT PLEURAL SPACE: Effusion: None Calcification: None Thickening: None Pneumothorax: None HEART: Heart Size: Normal Coronary calcification: Moderate Pericardial effusion: None OTHER FINDINGS: Upper abdomen: Normal Bony thorax: Normal Supraclavicular region: Normal Other: Ascending thoracic aorta at the level the main pulmonary artery measures 3.8 cm. The main pul monary artery at the bifurcation measures 2.6 cm. IMPRESSION: 1. No suspicious changes. FOLLOW UP CT CHEST RECOMMENDATION: Yes, low-dose CT chest one year CT LUNG RAD: 1
== END | disposition home or self-care (01) ==
LOC: RADCTMAIN 13:50
DX: Z12.2 Encounter for screening for malignant neoplasm of respiratory organs (principal); Z72.0 Tobacco use
CPT/HCPCS: 71271

== ENCOUNTER 2021-07-11 05:40 | Day surgery (SDC) | payer OTHER ==
[2021-07-10 11:29] VITALS: BMI 22.8
--- NOTE | 2021-07-10 18:51 | HP ---
HISTORY AND PHYSICAL REASON FOR ADMISSION: Surgery scheduled 07/11/2021 HISTORY OF PRESENT ILLNESS: Finesse Davila is a 66-year-old gentleman seen with progressive right shoulder pain. We discussed options for treatment. He elected to proceed with right shoulder arthroscopy. Consent regarding the procedure was obtained. Cardiac clearance was provided by Dr. Lobo. PAST MEDICAL HISTORY: Hypertension, coronary artery disease. PAST SURGICAL HISTORY: Cardiac catheterization with stent insertion. MEDICATIONS: Ibuprofen lisinopril, metoprolol, Tylenol. ALLERGIES: None. SOCIAL HISTORY: He smokes 1 pack of cigarettes daily. PHYSICAL EXAMINATION: Evaluation of the right shoulder: Flexion 120 degrees, abduction 80 degrees. External rotation is 30 degrees with severe weakness, tenderness along the anterior lateral acromion and rotator cuff insertion site. Impingement positive at 70 degrees. Drop- arm sign is positive. Distal neurovascular exam is intact. RADIOGRAPHS: Radiographs of the right shoulder revealed a type 2 acromion, evidence for acromioclavicular joint osteoarthritis and cystic changes of the tuberosity. A right shoulder MRI revealed a large rotator cuff tear and impingement. IMPRESSION: 1. Right shoulder impingement with rotator cuff tear. 2. Hypertension. 3. Cardiovascular disease. PLAN: Right shoulder arthroscopy with subacromial decompression, arthroscopic rotator cuff repair, possible Leanna procedure and debridement. Surgery scheduled for 07/11/2021. MMODL / IJN: [id number] /
[2021-07-11] MEDS ORDERED: LACTATED RINGERS 1,000 ML IV SCH (05:44)
[2021-07-11] MEDS ORDERED: DEXAMETHASONE SOD PHOSPHATE 4 MG/ML 1 ML VIAL IV ONE (05:44)
[2021-07-11] MEDS ORDERED: LIDOCAINE 1% (10MG/ML) FOR IV START INTRADERMA PRN (05:44)
[2021-07-11] MEDS ORDERED: ONDANSETRON 4 MG/2 ML VIAL IVP ONE (05:44)
[2021-07-11] MEDS ORDERED: SCOPOLAMINE 1.5MG/72HR PATCH TRANSDERM ONE (05:44)
[2021-07-11 06:42] LABS: Basophils # (A) 0.1 k/uL (0-0.2); Basophils % (A) 1 %; Eosinophils # (A) 0.3 k/uL (0-0.7); Eosinophils % (A) 3 %; HCT 43.4 % (39.0-53.0); HGB 14.6 gm/dL (13.0-17.5); Lymphocytes % (A) 23 %; MCH 30.6 pg (25.0-35.0); MCHC 33.5 g/dL (31.0-37.0); MCV 91.2 fL (80.0-100.0); Mean Platelet Volume 7.3; Monocytes # (A) 0.6 k/uL (0-1.0); Monocytes % (A) 7 %; Neutrophils # (A) 5.6 k/uL (1.3-7.7); Neutrophils % (A) 65 %; Platelet Count 283 k/uL (150-450); RBC 4.76 m/uL (4.30-5.90); RDW 11.9 % (11.5-15.5); WBC 8.7 k/uL (3.8-10.6)
[2021-07-11] MEDS ORDERED: MIDAZOLAM 2 MG/2 ML VIAL IV ONE (06:45)
[2021-07-11] MEDS ORDERED: fentaNYL (PF) 50 MCG/ML 2 ML AMP IV ONE (06:45)
[2021-07-11 06:51] LABS: Potassium 4.3 mmol/L (3.5-5.1)
[2021-07-11] MEDS ORDERED: ROPIVACAINE 5 MG/ML 30 ML VIAL ONE (06:56)
[2021-07-11] MEDS ORDERED: PROPOFOL 10 MG/ML 20 ML VIAL IV ONE (06:56)
[2021-07-11] MEDS ORDERED: fentaNYL (PF) 50 MCG/ML 2 ML AMP ONE (06:56)
[2021-07-11] MEDS ORDERED: ePHEDrine SULFATE/0.9% NACL/PF 50 MG/5 ML SYRINGE IV ONE (06:56)
[2021-07-11] MEDS ORDERED: LIDOCAINE 1% INJ 10MG/ML (20 ML MDV) ONE (06:56)
[2021-07-11] MEDS ORDERED: SUCCINYLCHOLINE CHLORIDE 100 MG/5 ML SYR IV ONE (06:56)
[2021-07-11] MEDS ORDERED: HYDROmorphone 0.5 MG/0.5 ML SYRINGE IVP PRN (07:00)
[2021-07-11 08:47] VITALS: TEMP 96.8
--- NOTE | 2021-07-11 08:52 | P.OP ---
Date of Procedure: 07/11/21 Preoperative Diagnosis: Right shoulder impingement Postoperative Diagnosis: 1. Right shoulder rotator cuff tear 2. Right shoulder impingement 3. Right shoulder acromioclavicular joint osteoarthritis 4. Right shoulder partial long head biceps tendon tear Procedure(s) Performed: 1. Right shoulder arthroscopic rotator cuff repair 2. Right shoulder arthroscopic subacromial decompression 3. Right shoulder arthroscopic Leanna procedure 4. Right shoulder arthroscopic biceps tenotomy Implants: 2Arthrex 4.75 swivel lock anchors 2Arthrex 5.5 swivel lock anchors Anesthesia: GETA, regional (Interscalene block) Surgeon: Alan Joseph Machine Lay Out Worker #1: Elbert Carbajal Estimated Blood Loss (ml): 11 Pathology: none sent Condition: stable Disposition: PACU Indications for Procedure: 66-year-old patient seen with progressive right shoulder pain. After treatment options were discussed, he elected to proceed with arthroscopy. Operative Findings: see description of procedure Description of Procedure: Patient underwent an interscalene block by department of anesthesia. The patient was then taken to the operative suite. The patient underwent a general anesthetic by the department of anesthesia. The patient was placed into a lateral position and secured. There was appropriate padding of the bony prominence. Right shoulder was then prepped and draped in normal sterile orthopedic fashion. We placed the extremity in 10 pounds of longitudinal traction. A posterior incision was now made for a posterior working portal site. The trocar and cannula were inserted into the glenohumeral joint. Arthroscopy was initiated. Spinal needle was now inserted anteriorly, to ascertain the anterior working portal site. An incision was now made in that area, a trocar was inserted followed by a probe. There was some mild superficial fraying of the superior labrum. There was mild grade 1 chondromalacia of the glenoid fossa anteriorly. There was some hyperemia partial tearing long head biceps tendon. The remainder of the labrum was probed and found to be stable. I performed an arthroscopic biceps tenotomy. I debrided that superficial fraying of the labrum superiorly. I again probed the residual labrum and it was found to be stable. Instruments now removed from glenohumeral joint. Utilizing the posterior working portal site, the trocar and cannula were inserted into the subacromial space. Arthroscopy initiated. I made an incision 2 fingerbreadths lateral to the acromion. I introduced my trocar followed by my ArthroCare ablator. I now began ablating thick subacromial bursal tissue, which exposed the undersurface of the anterior acromion. There was diminished subacromial space. There was a very prominent anterior acromion. A motorized bur was introduced and a subacromial decompression was performed. I also excised some osteophytes off the inferior aspect of the distal clavicle. The AC joint was visualized and noted to be fairly arthritic. The motorized bur was introduced in the anterior portal site and a Leanna procedure was performed without difficulty, decompressing the AC joint nicely. I turned my attention to the rotator cuff. There was a 2.53 cm rotator cuff tear. I debrided the margins getting down to stable tendon tissue. I introduced my motorized bur and abraded the footprint area, getting some petechial bleeding. I now made an accessory portal site off the lateral aspect of the acromion. I punched 2 holes medial for medial row fixation with the assistance of Sabino PAUL carefully tapping the punch with a mallet as I held the punch and the camera. I now introduced both anchors into the pre-punched holes and Sabino PAUL tapped them with the mallet as I held anchors and the camera. Sabino PAUL now screwed the anchors in place a while I held the anchor guide and camera. All 8 limbs of suture were now passed through good bites of rotator cuff tendon. I now punched 2 holes for lateral row fixation again I held the punch and camera while Sabino PAUL used a mallet to tap in the punch. We now passed sutures through both anchors and individually I introduced the anchors into the pre- punch holes I held the anchor guide in position with one hand holding the camera with the other hand while Sabino PAUL tensioned the sutures and screwed in the anchors one at a time. All residual suture limbs were now clipped. We had good compression of the tendon along the entire footprint. Instruments now removed from the portal sites. All portal sites were approximated with nylon suture. Sterile dressings were applied followed by a shoulder immobilizer. Sabino PAUL assisted in this complex case. The patient was awakened, transferred to a bed, and taken to recovery in stable condition.
[2021-07-11] MEDS ORDERED: LACTATED RINGERS 1,000 ML IV ONE (09:15)
[2021-07-11 09:34] VITALS: RESP 16
[2021-07-11 10:05] VITALS: BP 142/90; PULSE 64
--- NOTE | 2021-07-11 11:00 | P.ANPRN ---
Procedure Note - Anesthesia - Nerve Block Performed Right Interscalene Single Time Out Performed: Yes (644) Date of Procedure: 07/11/21 Procedure Start Time: 06:45 Procedure Stop Time: 06:53 Location of Patient: PreOp Indication: Acute Post-Operative Pain, Requested by Surgeon Specifically requested for management of pain by DrMeagan: Alan Joseph Sedation Type: Sedate with meaningful contact maintained Preparation: Sterile Prep Position: Supine Catheter: None Needle Types: Pajunk Needle Gauge: 21 Ultrasound used to visualize needle placement: Yes Ultrasound used to observe medication spread: Yes Injectate: 0.5% Ropivacaine (see comment for volume) (30cc) Blood Aspirated: No Pain Paresthesia on Injection Noted: No Resistance on Injection: Normal Image Stored and Saved: Yes Events: Uneventful and Well Tolerated
== END 2021-07-11 10:34 | disposition home or self-care (01) ==
LOC: OR 05:40
PROVIDERS: ATTEND Orthopaedic Surgery
DX: M25.811 Other specified joint disorders, right shoulder (principal); M75.111 Incomplete rotator cuff tear or rupture of right shoulder, not specified as traumatic; M19.011 Primary osteoarthritis, right shoulder; I25.10 Atherosclerotic heart disease of native coronary artery without angina pectoris; I10 Essential (primary) hypertension; I25.2 Old myocardial infarction; E78.5 Hyperlipidemia, unspecified; F17.210 Nicotine dependence, cigarettes, uncomplicated; Z79.1 Long term (current) use of non-steroidal anti-inflammatories (NSAID); Z79.899 Other long term (current) drug therapy
CPT/HCPCS: 29824; 29826; 29828; 29827; 64415; 76942; 80051; 85025; C1713 ×2; J2250; J1100; J2405; J0690; J2001; J3010; J2795; J0330; J2704

== ENCOUNTER 2021-07-18 10:59 | Inpatient (IN) | payer OTHER ==
[2021-07-18] MEDS ORDERED: SODIUM CHLORIDE 0.9% 1,000 ML IV STA (11:34)
[2021-07-18] MEDS ORDERED: METOPROLOL TARTRATE 5 MG/5 ML VIAL IVP STA ×3 (11:34→13:29)
[2021-07-18] MEDS ORDERED: SODIUM CHLORIDE 0.9% 500 ML 500 ML IV STA (11:34)
--- NOTE | 2021-07-18 11:44 | ED ---
Chest Pain HPI - General Chief Complaint: Chest Pain Stated Complaint: SOB,Arm Numbness Time Seen by Provider: 07/18/21 11:23 Source: patient, RN notes reviewed Mode of arrival: ambulatory Limitations: no limitations - History of Present Illness Initial Comments: 66-year-old male with a history of heart disease history of atrial fibrillation and history of cardiac arrest the past who presents with complaints of the onset last evening of shoulder pain with associated palpitations the feeling of an increased heart rate also breath feel well. He has sweats with this. Also felt warm. Also some nausea. Positive palpitations. No changes medications he states this feels similar to before he had his cardiac arrest also states it feels somewhat before when he had run out of his medications which he has not done this time. MD Complaint: chest pain, other - Related Data Home Medications Medication Instructions Recorded Confirmed Ibuprofen [Motrin Ib] 400 mg PO Q8H PRN 02/07/20 07/10/21 Cholecalciferol [Vitamin D3 (25 25 mcg PO DAILY 07/18/21 07/18/21 Mcg = 1000 Iu)] HYDROcodone/APAP 7.5-325MG [[place] 1 tab PO Q6HR PRN 07/18/21 7.5] Previous Rx's Medication Instructions Recorded Aspirin 325 mg PO DAILY 30 Days #30 tab 02/07/20 Atorvastatin [Lipitor] 80 mg PO HS #30 tab 02/07/20 Metoprolol Tartrate [Lopressor] 12.5 mg PO BID 30 Days #60 dose 02/07/20 Nitroglycerin Sl Tabs [Nitrostat] 0.4 mg SUBLINGUAL Q5M PRN #25 tab 02/07/20 lisinopriL [Prinivil] 5 mg PO DAILY 30 Days #30 tab 02/07/20 Allergies Allergy/AdvReac Type Severity Reaction Status Date / Time No Known Allergies Allergy Verified 07/18/21 12:43 Review of Systems ROS Statement: Those systems with pertinent positive or pertinent negative responses have been documented in the HPI. ROS Other: All systems not noted in ROS Statement are negative. EKG Findings - EKG Results: EKG: interpreted by DEBBIE (Atrial fibrillation with rapid ventricular response left exodeviation nonspecific interventricular block inferior changes nonspecific anterior changes ventricular rate 143 QRS 128 QT since QTC 354/546) Past Medical History Past Medical History: Coronary Artery Disease (CAD), Hyperlipidemia, Hypertension, Myocardial Infarction ([place]) Last Myocardial Infarction Date:: 12/04/17 History of Any Multi-Drug Resistant Organisms: None Reported Past Surgical History: Heart Catheterization With Stent, Orthopedic Surgery Additional Past Surgical History / Comment(s): R shoulder Past Anesthesia/Blood Transfusion Reactions: No Reported Reaction Date of Last Stent Placement:: 12/04/17 Past Psychological History: No Psychological Hx Reported Smoking Status: Current every day smoker Past Alcohol Use History: None Reported Past Drug Use History: None Reported - Past Family History Father Family Medical History: Myocardial Infarction ([place]) Additional Family Medical History / Comment(s): smoker, lung CA Mother Family Medical History: No Reported History General Exam - General Exam Comments Initial Comments: Is a well-developed well-nourished awake alert oriented times 3 male Limitations: no limitations General appearance: alert, anxious, in distress Head exam: Present: atraumatic, normocephalic, normal inspection Eye exam: Present: normal appearance, PERRL, EOMI. Absent: scleral icterus, conjunctival injection, periorbital swelling ENT exam: Present: normal exam, mucous membranes moist Neck exam: Present: normal inspection, full ROM, other (No stridor JVD or bruits). Absent: tenderness, meningismus, lymphadenopathy Respiratory exam: Present: normal lung sounds bilaterally, decreased breath sounds. Absent: respiratory distress, wheezes, rales, rhonchi, stridor Cardiovascular Exam: Present: tachycardia, irregular rhythm. Absent: systolic murmur, diastolic murmur, rubs, gallop, clicks GI/Abdominal exam: Present: soft, normal bowel sounds. Absent: distended, tenderness, guarding, rebound, rigid Extremities exam: Present: normal inspection, full ROM, normal capillary refill. Absent: tenderness, pedal edema, joint swelling, calf tenderness Back exam: Present: normal inspection Neurological exam: Present: alert, oriented X3, CN II-XII intact Psychiatric exam: Present: normal affect, normal mood Skin exam: Present: warm, dry, intact, normal color. Absent: rash Course Vital Signs 07/18/21 07/18/21 07/18/21 11:03 11:45 11:54 Temperature 98 F Pulse Rate 68 151 H 142 H Respiratory 18 20 20 Rate Blood Pressure 120/73 88/74 99/71 O2 Sat by Pulse 99 99 99 Oximetry 07/18/21 07/18/21 07/18/21 12:10 12:39 13:00 Temperature Pulse Rate 124 H 142 H 131 H Respiratory 20 20 20 Rate Blood Pressure 101/65 107/87 106/71 O2 Sat by Pulse 99 98 96 Oximetry 07/18/21 13:47 Temperature Pulse Rate 134 H Respiratory 20 Rate Blood Pressure 106/79 O2 Sat by Pulse 97 Oximetry - Reevaluation(s) Reevaluation #1: 07/18/21 14:26 Reevaluation patient reveals some improvement in his heart rate though still A. fib RVR with Y complex Reevaluation #2: 07/18/21 14:27 Repeat EKG shows 147 heart rate A. fib RVR Y complex that exodeviation nonspecific interventricular block evidence of nonspecific inferior and anterior changes. QRS 128 QT since QTC 346/541 Chest Pain MDM - MDM Imaging reviewed no acute findings seen at did discuss case the patient as well as with Dr. ramsey who came to see the patient in emergency department he will be admitted with cardiology consultation. Critical Care Time Critical Care Time: Yes Total Critical Care Time: 39 Critical Care Time: Critical care time of his presentation with history physical labs x-rays multiple reevaluation patient response to therapy review of old charting discussed with the patient's findings discussed with the main physician admission orders and documentation of the above Disposition Clinical Impression: Rapid atrial fibrillation, Elevated troponin, Chest pain Disposition: ADMITTED IP TO THIS HOSP Condition: Fair Referrals: [facility]inic [Primary Care Provider] - 1-2 days
[2021-07-18 11:53] LABS: Basophils % (A) 0 %; Eosinophils # (A) 0.1 k/uL (0-0.7); Eosinophils % (A) 1 %; HCT 45.1 % (39.0-53.0); HGB 14.9 gm/dL (13.0-17.5); Lymphocytes # (A) 1.2 k/uL (1.0-4.8); Lymphocytes % (A) 10 %; MCH 30.3 pg (25.0-35.0); MCHC 33.1 g/dL (31.0-37.0); MCV 91.4 fL (80.0-100.0); Mean Platelet Volume 7.4; Monocytes # (A) 0.5 k/uL (0-1.0); Monocytes % (A) 4 %; Neutrophils # (A) 9.9 k/uL (1.3-7.7); Neutrophils % (A) 84 %; Platelet Count 415 k/uL (150-450); RBC 4.94 m/uL (4.30-5.90); RDW 11.8 % (11.5-15.5); WBC 11.8 k/uL (3.8-10.6)
[2021-07-18 12:03] LABS: Partial Thromboplastin Time 26.8 sec (22.0-30.0); Prothrombin Time 10.6 sec (9.0-12.0)
[2021-07-18 12:07] LABS: ALT 24 U/L (4-49); AST 28 U/L (17-59); African American GFR (CKD) >90 (>60 ml/min/1.73 sqM); Albumin 4.5 g/dL (3.5-5.0); Alkaline Phosphatase 100 U/L (38-126); Anion Gap 11 mmol/L; Blood Urea Nitrogen 26 mg/dL (9-20); Calcium 10.3 mg/dL (8.4-10.2); Carbon Dioxide 24 mmol/L (22-30); Chloride 102 mmol/L (98-107); Glucose 153 mg/dL (74-99); Non-African American GFR(CKD) >90 (>60 ml/min/1.73 sqM); Potassium 4.5 mmol/L (3.5-5.1); Sodium 137 mmol/L (137-145); Total Bilirubin 0.8 mg/dL (0.2-1.3); Total Protein 7.3 g/dL (6.3-8.2)
--- NOTE | 2021-07-18 12:08 | XR ---
EXAMINATION TYPE: XR chest 1V portable DATE OF EXAM: 07/18/2021 COMPARISON: 02/07/2020 HISTORY: Chest pain TECHNIQUE: Single frontal view of the chest is obtained. FINDINGS: Heart is enlarged. Hyperinflation. Diffuse osteopenia. No pneumothorax. Curvature of the s pine with hypertrophic and degenerative changes. No definite consolidative process. No interstitial e kathy. IMPRESSION: COPD and cardiomegaly
[2021-07-18] MEDS ORDERED: HYDROmorphone 1 MG/ML 1 ML SYRINGE IVP STA (13:29)
[2021-07-18] MEDS ORDERED: HEPARIN SOD,PORK IN 0.45% NACL 25,000 UNIT in 0.45% NACL 1 250ML.BAG IV SCH ×2 (14:00→14:30)
[2021-07-18] MEDS ORDERED: ASPIRIN 81 MG PO STA (14:22)
--- NOTE | 2021-07-18 14:24 | P.HPIM ---
History of Present Illness This is a pleasant 66 years old male with past medical history of Coronary Artery Disease (CAD), Hyperlipidemia, Hypertension. The a clinic and his business process representative is Dr. Garber. Patient presents because workup in the middle of night earlier this morning complaining from fluttering, lightheadedness and dizziness about to pass out with generalized weakness and sweating Also patient was complaining of from pain across his posterior shoulders, stated similar to the stress test he had it previously, it was back pain as per patient, nonradiating. Now is much relieved. He smokes 1 pack per day, no alcohol or illicit drugs. Patient is counseled to quit and he agrees to the nicotine patch On admission he is tachycardic with heart rate around 151. Rest of vitals are stable. He had mild leukocytosis 11.8, rest of CBC, BMP, liver enzymes are unremarkable. BNP is 1190. Elevated 0.08. INR is 1.0 Chest x-ray: COPD and cardiomegaly Emergency room received several doses of IV metoprolol 50 mg in the emergency room and normocephalic Review of Systems CONSTITUTIONAL: No fever, no malaise, no fatigue. HEENT: No recent visual problems or hearing problems. Denied any sore throat. CARDIOVASCULAR: No orthopnea, PND, no palpitations, no syncope. PULMONARY: No shortness of breath, no cough, no hemoptysis. GASTROINTESTINAL: No diarrhea, no nausea, no vomiting, no abdominal pain. Normoactive bowel sounds. NEUROLOGICAL: No headaches, no weakness, no numbness. HEMATOLOGICAL: Denies any bleeding or petechiae. GENITOURINARY: Denies any burning micturition, frequency, or urgency. MUSCULOSKELETAL/RHEUMATOLOGICAL: Denies any joint pain, swelling, or any muscle pain. ENDOCRINE: Denies any polyuria or polydipsia. Past Medical History Past Medical History: Coronary Artery Disease (CAD), Hyperlipidemia, Hypertension, Myocardial Infarction ([place]) Last Myocardial Infarction Date:: 12/04/17 History of Any Multi-Drug Resistant Organisms: None Reported Past Surgical History: Heart Catheterization With Stent, Orthopedic Surgery Additional Past Surgical History / Comment(s): R shoulder Past Anesthesia/Blood Transfusion Reactions: No Reported Reaction Date of Last Stent Placement:: 12/04/17 Past Psychological History: No Psychological Hx Reported Smoking Status: Current every day smoker Past Alcohol Use History: None Reported Past Drug Use History: None Reported - Past Family History Father Family Medical History: Myocardial Infarction ([place]) Additional Family Medical History / Comment(s): smoker, lung CA Mother Family Medical History: No Reported History Medications and Allergies Home Medications Medication Instructions Recorded Confirmed Type Aspirin 325 mg PO DAILY 30 Days #30 tab 02/07/20 07/10/21 Rx Atorvastatin [Lipitor] 80 mg PO HS #30 tab 02/07/20 07/10/21 Rx Ibuprofen [Motrin Ib] 400 mg PO Q8H PRN 02/07/20 07/10/21 History Metoprolol Tartrate [Lopressor] 12.5 mg PO BID 30 Days #60 dose 02/07/20 07/10/21 Rx Nitroglycerin Sl Tabs [Nitrostat] 0.4 mg SUBLINGUAL Q5M PRN #25 tab 02/07/20 07/10/21 Rx lisinopriL [Prinivil] 5 mg PO DAILY 30 Days #30 tab 02/07/20 07/10/21 Rx Cholecalciferol [Vitamin D3 (25 25 mcg PO DAILY 07/18/21 07/18/21 History Mcg = 1000 Iu)] HYDROcodone/APAP 7.5-325MG [[place] 1 tab PO Q6HR PRN 07/18/21 History 7.5] Allergies Allergy/AdvReac Type Severity Reaction Status Date / Time No Known Allergies Allergy Verified 07/18/21 12:43 Physical Exam Vitals: Vital Signs Temp Pulse Resp BP Pulse Ox 07/18/21 13:47 134 H 20 106/79 97 07/18/21 13:00 131 H 20 106/71 96 07/18/21 12:39 142 H 20 107/87 98 07/18/21 12:10 124 H 20 101/65 99 07/18/21 11:54 142 H 20 99/71 99 07/18/21 11:45 151 H 20 88/74 99 07/18/21 11:03 98 F 68 18 120/73 99 Intake and Output 07/17/21 07/18/21 07/18/21 22:59 06:59 14:59 Other: Weight 68.039 kg GENERAL: The patient is alert and oriented x3, not in any acute distress. Well developed, well nourished. HEENT: Pupils are round and equally reacting to light. EOMI. No scleral icterus. No conjunctival pallor. Normocephalic, atraumatic. No pharyngeal erythema. No thyromegaly. CARDIOVASCULAR: S1 and S2 present. No murmurs, rubs, or gallops. PULMONARY: Chest is clear to auscultation, no wheezing or crackles. ABDOMEN: Soft, nontender, nondistended, normoactive bowel sounds. No palpable organomegaly. MUSCULOSKELETAL: No joint swelling or deformity. EXTREMITIES: No cyanosis, clubbing, or pedal edema. NEUROLOGICAL: Gross neurological examination did not reveal any focal deficits. SKIN: No rashes. No petechiae Results CBC & Chem 7: 07/18/21 11:42 07/18/21 11:42 Labs: Abnormal Lab Results - Last 24 Hours (Table) 07/18/21 07/18/21 07/18/21 Range/Units 11:42 11:42 11:42 WBC 11.8 H (3.8-10.6) k/uL Neutrophils # 9.9 H (1.3-7.7) k/uL BUN 26 H (9-20) mg/dL Glucose 153 H (74-99) mg/dL Calcium 10.3 H (8.4-10.2) mg/dL Troponin I 0.083 H* (0.000-0.034) ng/mL Assessment and Plan Assessment: New-onset A. fib with RVR Shoulder pain/chest pain, rule out cardiac causes nicotine dependence Hypertension Hyperlipidemia History of coronary artery disease Plan: this is a pleasant 66 years old male who presents with A. fib and RVR and s houlder/chest pain severe troponin,, cardiology consult. Continue his home dose of aspirin start metoprolol when he 5 mg twice a day continue with gentle hydration Labs and medication were reviewed.. Continue same treatment. Continue with symptomatic treatment. Resume home medication. Monitor lytes and vitals. DVT and GI prophylaxis. Further recommendations depends on the clinical course of the patient DVT prophylaxis: Subcutaneous heparin GI Prophylaxis: Pepcid Prognosis is guarded
[2021-07-18] MEDS ORDERED: HEPARIN SODIUM 1,000 UN/ML (10ML VL) IV ONE (14:29)
[2021-07-18] MEDS ORDERED: NITROGLYCERIN SL TABS 0.4 MG TAB SUBLINGUAL PRN ×2 (14:29→15:41)
[2021-07-18] MEDS ORDERED: IBUPROFEN 200 MG TAB PO PRN ×2 (14:31→15:41)
[2021-07-18] MEDS ORDERED: HYDROcodone/APAP 7.5-325MG 1 EACH TAB PO PRN (14:31)
[2021-07-18] MEDS ORDERED: HEPARIN SODIUM,PORCINE/PF 5,000 UNIT/0.5 ML SYRINGE SQ SCH (16:00)
[2021-07-18] MEDS: METOPROLOL TARTRATE 25 MG TAB PO SCH ×2 (16:20→20:37)
[2021-07-18] MEDS: FAMOTIDINE 20 MG/2 ML VIAL IV SCH (20:37)
[2021-07-18] MEDS: ATORVASTATIN 80 MG TAB PO SCH (20:37)
[2021-07-18] MEDS ORDERED: ATORVASTATIN 80 MG TAB PO SCH (21:00)
[2021-07-18] MEDS ORDERED: METOPROLOL TARTRATE 12.5 MG TAB PO SCH ×2 (21:00)
[2021-07-19 07:38] LABS: Partial Thromboplastin Time 35.3 sec (22.0-30.0)
[2021-07-19 07:57] LABS: African American GFR (CKD) >90 (>60 ml/min/1.73 sqM); Anion Gap 6 mmol/L; Blood Urea Nitrogen 18 mg/dL (9-20); Calcium 9.4 mg/dL (8.4-10.2); Carbon Dioxide 28 mmol/L (22-30); Chloride 103 mmol/L (98-107); Glucose 99 mg/dL (74-99); Non-African American GFR(CKD) >90 (>60 ml/min/1.73 sqM); Sodium 137 mmol/L (137-145)
[2021-07-19 08:19] LABS: Basophils # (A) 0.1 k/uL (0-0.2); Basophils % (A) 1 %; Eosinophils # (A) 0.1 k/uL (0-0.7); Eosinophils % (A) 1 %; HCT 37.5 % (39.0-53.0); HGB 12.7 gm/dL (13.0-17.5); Lymphocytes # (A) 1.6 k/uL (1.0-4.8); Lymphocytes % (A) 16 %; MCH 30.8 pg (25.0-35.0); MCHC 33.8 g/dL (31.0-37.0); Mean Platelet Volume 7.4; Monocytes # (A) 0.7 k/uL (0-1.0); Monocytes % (A) 7 %; Neutrophils # (A) 7.3 k/uL (1.3-7.7); Neutrophils % (A) 75 %; Platelet Count 346 k/uL (150-450); RBC 4.12 m/uL (4.30-5.90); RDW 12.6 % (11.5-15.5); WBC 9.8 k/uL (3.8-10.6)
[2021-07-19 08:19] LABS: Appearance,Urine Clear (Clear); Bilirubin,Urine Negative (Negative); Blood,Urine Negative (Negative); Color,Urine Light Yellow; Glucose,Urine (UA) Negative (Negative); Ketones,Urine Negative (Negative); Leukocyte Esterase,Urine Negative (Negative); Nitrite,Urine Negative (Negative); PH, Urine 5.5 (5.0-8.0); Protein,Urine Negative (Negative); Specific Gravity,Urine 1.007 (1.001-1.035); Urobilinogen,Urine <2.0 mg/dL (<2.0)
[2021-07-19] MEDS ORDERED: CHOLECALCIFEROL 25 MCG (1000 IU) TABLET PO SCH (09:00)
[2021-07-19] MEDS ORDERED: lisinopriL 5 MG TAB PO SCH (09:00)
[2021-07-19] MEDS ORDERED: ASPIRIN 81 MG PO SCH (09:00)
[2021-07-19] MEDS ORDERED: ASPIRIN 325 MG TAB PO SCH ×2 (09:00)
[2021-07-19] MEDS: lisinopriL 5 MG TAB PO SCH (09:08)
[2021-07-19] MEDS: CHOLECALCIFEROL 25 MCG (1000 IU) TABLET PO SCH (09:09)
[2021-07-19] MEDS: METOPROLOL TARTRATE 25 MG TAB PO SCH ×2 (09:09→19:46)
[2021-07-19] MEDS: FAMOTIDINE 20 MG/2 ML VIAL IV SCH ×2 (09:09→19:46)
[2021-07-19] MEDS: NICOTINE 21MG/24HR PATCH TRANSDERM SCH ×2 (09:09)
--- NOTE | 2021-07-19 11:43 | P.CRDCN ---
History of Present Illness History of present illness: HISTORY OF PRESENTING ILLNESS Patient is a 66-year-old male with a history significant for CAD status post PCI proxmial RCA, proximal LAD, mid RCA, proximal circumflex, prior PA, ischemic car diomyopathy, hypertension, dyslipidemia, peripheral vascular disease, chronic nicotine dependence, recent right shoulder surgery June 2021. He follows with Dr. Lobo. Patient presents to the emergency department with worsening palpitations, fluttering in the chest, shortness of breath, and heavy bilateral shoulder pain. His symptoms started Friday night, woke him up out of sleep. His symptoms continued and decided to present to the emergency department. He had some associated diaphoresis. His symptoms are non-exertional, non-radiating. He denies chest pain. He denies symptoms of orthopnea or PND. His symptoms are different then when he had his PA in 2017 at that time he had chest pr essure/heaviness. He continues to smoke 1PPD. Denies alcohol or illicit drug use. Denies history of stroke or diabetes. Patient was given 1 L IV fluid bolus and started on IV fluids, given a total of 15 mg of IV Lopressor and started on a heparin drip. DIAGNOSTICS EKG on admission reveals atrial fibrillation with rapid ventricular response, left bundle branch block pattern, left axis deviation, heart rate in the 140s. Patient converted to sinus mechanism His EKG revealed sinus rhyhtm, narrow QRS, no significant ST-T wave abnormalities Telemetry tracings indicate sinus mechanism heart rates [id number] Chest xray COPD, heart size is enlarged Most recent cardiac catheterization 01/2018 with stent to the proximal RCA, proximal LAD, mid RCA, Impella was placed prior to procedure Most recent echocardiogram 11/2019 revealed EF of 46%, mild mitral regurgitation, mild tricuspid regurgitation Laboratory reviewed, troponin 0.08, 0.18, 0.21, WBC 9.8, hemoglobin 12.7, platelets 346, d-dimer 0.8, sodium 137, potassium 4.0, BUN 18, serum creatinine 0.8, TSH within normal limits, UA negative, COVID-19 PCR negative Current home cardiac medications include metoprolol titrate 20.5 mg twice a day, lisinopril 5 mg daily, atorvastatin 80 mg nightly, aspirin 325 mg daily REVIEW OF SYSTEMS At the time of my exam: CONSTITUTIONAL: +diaphoresis Denies fever or chills. CARDIOVASCULAR: +shortness of breath, +palpitations Denies chest pain, orthopnea, PND RESPIRATORY: Denies cough. GASTROINTESTINAL: Denies abdominal pain, diarrhea, constipation, nausea or vomiting. MUSCULOSKELETAL: +Bilateral shoulder pain NEUROLOGIC: Denies numbness, tingling, headacbe or weakness. ENDOCRINE: Denies fatigue, weight change, polydipsia or polyurina. GENITOURINARY: Denies burning, hematuria or urgency with micturation. HEMATOLOGIC: Denies history of anemia or bleeding. PHYSICAL EXAMINATION Blood pressure 151/73, heart rate 67, afebrile, maintaining oxygen saturations on room air CONSTITUTIONAL: No apparent distress. HEENT: Head is normocephalic. Pupils are equal, round. Sclerae anicteric. Mucous membranes of the mouth are moist. No JVD. No carotid bruit. CHEST EXAMINATION: Lungs are clear to auscultation. No chest wall tenderness is noted on palpation or with deep breathing. HEART EXAMINATION: Regular rate and rhythm. S1, S2 heard. No murmurs, gallops or rub. ABDOMEN: Soft, nontender. Positive bowel sounds. EXTREMITIES: 2+ peripheral pulses, no lower extremity edema and no calf tenderness. NEUROLOGIC EXAMINATION: Patient is awake, alert and oriented x3. ASSESSMENT: Paroxysmal atrial fibrillation with RVR, now maintaining sinus mechanism -[id number] score 3 Elevated troponin, most likely demand ischemia due to atrial fibrillation RVR Coronary artery disease status post PCI proxmial RCA, proximal LAD, mid RCA, proximal circumflex Prior PA 2018 Ischemic cardiomyopathy Hypertension Dyslipidemia Peripheral vascular disease Chronic nicotine dependence Recent right shoulder rotator cuff repair on 07/11/21 PLAN: -Continue metoprolol 25mg BID -Continue IV heparin drip. Will consult case management in coverage of Eliquis and start Eliquis 5mg BID -Recommend Lexiscan stress test to rule out reversible ischemia for 07/20/21 -2D echocardiogram -Continue aspirin, statin, lisinopril. -Patient may need an ablation, this will be discussed as an outpatient. -Further recommendations based on clinical course Past Medical History Past Medical History: Coronary Artery Disease (CAD), Hyperlipidemia, Hypertension, Myocardial Infarction ([place]) Last Myocardial Infarction Date:: 12/04/17 History of Any Multi-Drug Resistant Organisms: None Reported Past Surgical History: Heart Catheterization With Stent, Orthopedic Surgery Additional Past Surgical History / Comment(s): R shoulder Past Anesthesia/Blood Transfusion Reactions: No Reported Reaction Date of Last Stent Placement:: 12/04/17 Past Psychological History: No Psychological Hx Reported Smoking Status: Current every day smoker Past Alcohol Use History: None Reported Additional Past Alcohol Use History / Comment(s): smoker since age 22 smoked 40 years 1ppd attempting to quit Past Drug Use History: None Reported Additional Drug Use History / Comment(s): smokes marijuanna rarely - Past Family History Father Family Medical History: Myocardial Infarction ([place]) Additional Family Medical History / Comment(s): smoker, lung CA Mother Family Medical History: No Reported History Medications and Allergies Home Medications Medication Instructions Recorded Confirmed Type Aspirin 325 mg PO DAILY 30 Days #30 tab 02/07/20 07/18/21 Rx Atorvastatin [Lipitor] 80 mg PO HS #30 tab 02/07/20 07/18/21 Rx Ibuprofen [Motrin Ib] 400 mg PO Q8H PRN 02/07/20 07/18/21 History Nitroglycerin Sl Tabs [Nitrostat] 0.4 mg SUBLINGUAL Q5M PRN #25 tab 02/07/20 07/18/21 Rx lisinopriL [Prinivil] 5 mg PO DAILY 30 Days #30 tab 02/07/20 07/18/21 Rx Cholecalciferol [Vitamin D3 (25 25 mcg PO DAILY 07/18/21 07/18/21 History Mcg = 1000 Iu)] HYDROcodone/APAP 7.5-325MG [[place] 1 tab PO Q6HR PRN 07/18/21 07/18/21 History 7.5] Metoprolol Tartrate [Lopressor] 12.5 mg PO BID 07/18/21 07/18/21 History Apixaban [Eliquis] 5 mg PO BID 30 Days #60 tab 07/19/21 Rx Allergies Allergy/AdvReac Type Severity Reaction Status Date / Time No Known Allergies Allergy Verified 07/18/21 15:18 Physical Exam Vitals: Vital Signs Temp Pulse Pulse Resp BP BP Pulse Ox 07/19/21 04:00 97.6 F 67 18 137/69 96 07/19/21 02:00 66 18 07/19/21 00:00 97.6 F 66 18 102/54 95 07/18/21 20:00 97.4 F L 62 18 125/81 98 07/18/21 19:00 109 H 20 113/73 98 07/18/21 18:00 98.2 F 114 H 20 124/83 96 07/18/21 16:25 98.0 F 124 H 20 107/81 96 07/18/21 14:30 134 H 20 100/86 98 07/18/21 13:47 134 H 20 106/79 97 07/18/21 13:00 131 H 20 106/71 96 07/18/21 12:39 142 H 20 107/87 98 07/18/21 12:10 124 H 20 101/65 99 07/18/21 11:54 142 H 20 99/71 99 07/18/21 11:45 151 H 20 88/74 99 07/18/21 11:03 98 F 68 18 120/73 99 Intake and Output 07/18/21 07/19/21 07/19/21 22:59 06:59 14:59 Intake Total 69.675 Balance 69.675 Intake: Intake, IV Titration 69.675 Amount Heparin Sod,Pork in 0.45% 69.675 NaCl 25,000 unit In 0.45 % NaCl 1 250ml.bag @ 12 UNITS/KG/HR 8.165 mls/hr IV .Q24H [facility] Rx#: [id number] Other: Voiding Method Toilet Toilet # Voids 1 Weight 68.039 kg 67.7 kg Results 07/19/21 07:04 07/19/21 07:04 Cardiac Enzymes 07/18/21 07/18/21 07/18/21 Range/Units 11:42 11:42 15:53 AST 28 (17-59) U/L Troponin I 0.083 H* 0.188 H* (0.000-0.034) ng/mL 07/18/21 Range/Units 18:52 AST (17-59) U/L Troponin I 0.219 H* (0.000-0.034) ng/mL Coagulation 07/18/21 07/18/21 Range/Units 11:42 23:03 PT 10.6 (9.0-12.0) sec APTT 26.8 31.8 H (22.0-30.0) sec CBC 07/18/21 Range/Units 11:42 WBC 11.8 H (3.8-10.6) k/uL RBC 4.94 (4.30-5.90) m/uL Hgb 14.9 (13.0-17.5) gm/dL Hct 45.1 (39.0-53.0) % Plt Count 415 (150-450) k/uL Comprehensive Metabolic Panel 07/18/21 Range/Units 11:42 Sodium 137 (137-145) mmol/L Potassium 4.5 (3.5-5.1) mmol/L Chloride 102 (98-107) mmol/L Carbon Dioxide 24 (22-30) mmol/L BUN 26 H (9-20) mg/dL Creatinine 0.82 (0.66-1.25) mg/dL Glucose 153 H (74-99) mg/dL Calcium 10.3 H (8.4-10.2) mg/dL AST 28 (17-59) U/L ALT 24 (4-49) U/L Alkaline Phosphatase 100 (38-126) U/L Total Protein 7.3 (6.3-8.2) g/dL Albumin 4.5 (3.5-5.0) g/dL Current Medications Generic Name Dose Route Start Last Admin Trade Name Freq PRN Reason Stop Dose Admin Hydrocodone Bitart/Acetaminophen 1 each 07/18/21 15:41 Hydrocodone/Apap 7.5-325mg 1 Each Tab PO Q6HR PRN Pain Aspirin 325 mg 07/19/21 09:00 Aspirin 325 Mg Tab PO DAILY [facility] Atorvastatin Calcium 80 mg 07/18/21 21:00 07/18/21 20:37 Atorvastatin 80 Mg Tab PO 80 mg HS [facility] Administration Cholecalciferol 25 mcg 07/19/21 09:00 Cholecalciferol 25 Mcg (1000 Iu) Tablet PO DAILY [facility] Famotidine 20 mg 07/18/21 21:00 07/18/21 20:37 Famotidine 20 Mg/2 Ml Vial IV 20 mg Q12HR [facility] Administration Heparin Sodium/Sodium Chloride 250 mls @ 8.165 mls/hr 07/18/21 14:00 07/19/21 01:00 25,000 unit/ Sodium Chloride IV 15 units/kg/hr .Q24H [facility] 10.206 mls/hr Titration Protocol 12 UNITS/KG/HR Ibuprofen 400 mg 07/18/21 15:41 Ibuprofen 200 Mg Tab PO Q8H PRN Pain Lisinopril 5 mg 07/19/21 09:00 Lisinopril 5 Mg Tab PO DAILY [facility] Metoprolol Tartrate 25 mg 07/18/21 14:30 07/18/21 20:37 Metoprolol Tartrate 25 Mg Tab PO 25 mg BID [facility] Administration Nicotine 1 patch 07/18/21 22:00 07/19/21 00:00 Nicotine 21mg/24hr Patch TRANSDERM Not Given DAILY [facility] Nitroglycerin 0.4 mg 07/18/21 15:41 Nitroglycerin Sl Tabs 0.4 Mg Tab SUBLINGUAL Q5M PRN Chest Pain Intake and Output 07/18/21 07/19/21 07/19/21 22:59 06:59 14:59 Intake Total 69.675 Balance 69.675 Intake: Intake, IV Titration 69.675 Amount Heparin Sod,Pork in 0.45% 69.675 NaCl 25,000 unit In 0.45 % NaCl 1 250ml.bag @ 12 UNITS/KG/HR 8.165 mls/hr IV .Q24H [facility] Rx#: [id number] Other: Voiding Method Toilet Toilet # Voids 1 Weight 68.039 kg 67.7 kg 07/18/21 11:42 07/18/21 11:42
[2021-07-19] MEDS ORDERED: HEPARIN SOD,PORK IN 0.45% NACL 25,000 UNIT in 0.45% NACL 1 250ML.BAG IV SCH (13:30)
[2021-07-19 13:33] LABS: Chol/HDL Ratio 2.49 Ratio; LDL Cholesterol,Calculated 44.2 mg/dL (0.0-131.0)
[2021-07-19] MEDS ORDERED: SODIUM CHLORIDE 0.9% 1,000 ML IV SCH (14:00)
--- NOTE | 2021-07-19 14:03 | P.PN ---
Subjective This is a pleasant 66 years old male with past medical history of Coronary Artery Disease (CAD), Hyperlipidemia, Hypertension. The [facility] clinic and his mdm sr is Dr. Garber. Patient presents because workup in the middle of night earlier this morning complaining from fluttering, lightheadedness and dizziness about to pass out with generalized weakness and sweating Also patient was complaining of from pain across his posterior shoulders, stated similar to the stress test he had it previously, it was back pain as per patient, nonradiating. Now is much relieved. He smokes 1 pack per day, no alcohol or illicit drugs. Patient is counseled to quit and he agrees to the nicotine patch On admission he is tachycardic with heart rate around 151. Rest of vitals are stable. He had mild leukocytosis 11.8, rest of CBC, BMP, liver enzymes are unremarkable. BNP is 1190. Elevated 0.08. INR is 1.0 Chest x-ray: COPD and cardiomegaly Emergency room received several doses of IV metoprolol 50 mg in the emergency room and normocephalic 07/19/2021 In today feels better with minimal shoulder pain but also reports he had surgery in his right shoulder about one week ago and there is some limitation in his shoulder movement, therefore going to consult orthopedic team he is admitted with new onset A. fib and RVR, mdm sr recommended to continue with anticoagulation heparin and switch it to Eliquis. Also is going for a stress test tomorrow and may need ablation as an outpatient, patient is aware and he told me this information by himself. Other than that he is hemodynamically and labs are stable. Heart rates is in 60s. We will start him on normal saline 75 mm/h for 12 hours, he remains on metoprolol 25 mg, heparin drip, but no aspirin Objective - Vital Signs Vital signs: Vital Signs Temp 98.2 F 07/19/21 11:31 Pulse 52 L 07/19/21 11:31 Resp 18 07/19/21 11:31 BP 151/73 07/19/21 11:31 Pulse Ox 98 07/19/21 11:31 Intake & Output 07/18/21 07/19/21 07/19/21 18:59 06:59 18:59 Intake Total 69.675 321.818 Balance 69.675 321.818 Weight 68.039 kg 67.7 kg Intake: Intake, IV Titration 69.675 81.818 Amount Heparin Sod,Pork in 0.45% 69.675 81.818 NaCl 25,000 unit In 0.45 % NaCl 1 250ml.bag @ 12 UNITS/KG/HR 8.165 mls/hr IV .Q24H [facility] Rx#: [id number] Oral 240 Other: Voiding Method Toilet Toilet # Voids 1 - Exam GENERAL: The patient is alert and oriented x3, not in any acute distress. Well developed, well nourished. HEENT: Pupils are round and equally reacting to light. EOMI. No scleral icterus. No conjunctival pallor. Normocephalic, atraumatic. No pharyngeal erythema. No thyromegaly. CARDIOVASCULAR: S1 and S2 present. No murmurs, rubs, or gallops. PULMONARY: Chest is clear to auscultation, no wheezing or crackles. ABDOMEN: Soft, nontender, nondistended, normoactive bowel sounds. No palpable organomegaly. MUSCULOSKELETAL: No joint swelling or deformity. EXTREMITIES: No cyanosis, clubbing, or pedal edema. NEUROLOGICAL: Gross neurological examination did not reveal any focal deficits. SKIN: No rashes. no petechiae. - Labs CBC & Chem 7: 07/19/21 07:04 07/19/21 07:04 Labs: Abnormal Lab Results - Last 24 Hours (Table) 07/18/21 07/18/21 07/18/21 Range/Units 15:53 18:52 23:03 RBC (4.30-5.90) m/uL Hgb (13.0-17.5) gm/dL Hct (39.0-53.0) % APTT 31.8 H (22.0-30.0) sec D-Dimer (<0.60) mg/L FEU Troponin I 0.188 H* 0.219 H* (0.000-0.034) ng/mL 07/19/21 07/19/21 Range/Units 07:04 07:04 RBC 4.12 L (4.30-5.90) m/uL Hgb 12.7 L (13.0-17.5) gm/dL Hct 37.5 L (39.0-53.0) % APTT 35.3 H (22.0-30.0) sec D-Dimer 0.85 H (<0.60) mg/L FEU Troponin I (0.000-0.034) ng/mL Assessment and Plan Assessment: New-onset A. fib with RVR Shoulder pain/chest pain, rule out cardiac causes nicotine dependence Recent right shoulder surgery Hypertension Hyperlipidemia History of coronary artery disease Plan: this is a pleasant 66 years old male who presents with A. fib and RVR and shoulder/chest pain cardiology consult. Stress test in the morning Continue with anticoagulation, heparin drip and then Eliquis Continue with metoprolol. aspirin was stopped continue with gentle hydration consult orthopedic team Labs and medication were reviewed.. Continue same treatment. Continue with symptomatic treatment. Resume home medication. Monitor lytes and vitals. DVT and GI prophylaxis. Further recommendations depends on the clinical course of the patient DVT prophylaxis:heparin and then Eliquis GI Prophylaxis: Pepcid Prognosis is guarded
--- NOTE | 2021-07-19 14:43 | P.CNOR ---
History of Present Illness - [facility] Consult date: 07/19/21 Consult reason: other (Recent right shoulder surgery) History of present illness: Patient is a 66-year-old male who presented to [facility] yesterday with regards to heart palpitations and shortness of breath. Patient has very detailed heart history. Patient was found to be in A. fib with RVR, he was admitted under internal medicine with cardiology following. It was noted patient had a recent right shoulder procedure, Dr. Joseph last week. Orthopedics was consult for this. Patient was evaluated today at bedside, he is resting comfortably. He notes minimal discomfort at this time in the right shoulder. He denies any traumatic events, this including falls. He has been utilizing the shoulder immobilizer as prescribed. Patient is scheduled for his first postoperative visit next week. Review of Systems Constitutional: Reports as per [facility] Past Medical History Past Medical History: Coronary Artery Disease (CAD), Hyperlipidemia, Hypertension, Myocardial Infarction ([place]) Last Myocardial Infarction Date:: 12/04/17 History of Any Multi-Drug Resistant Organisms: None Reported Past Surgical History: Heart Catheterization With Stent, Orthopedic Surgery Additional Past Surgical History / Comment(s): R shoulder Past Anesthesia/Blood Transfusion Reactions: No Reported Reaction Date of Last Stent Placement:: 12/04/17 Past Psychological History: No Psychological Hx Reported Smoking Status: Current every day smoker Past Alcohol Use History: None Reported Additional Past Alcohol Use History / Comment(s): smoker since age 22 smoked 40 years 1ppd attempting to quit Past Drug Use History: None Reported Additional Drug Use History / Comment(s): smokes [employer] rarely - Past Family History Father Family Medical History: Myocardial Infarction ([place]) Additional Family Medical History / Comment(s): smoker, lung CA Mother Family Medical History: No Reported History Medications and Allergies Home Medications Medication Instructions Recorded Confirmed Type Aspirin 325 mg PO DAILY 30 Days #30 tab 02/07/20 07/18/21 Rx Atorvastatin [Lipitor] 80 mg PO HS #30 tab 02/07/20 07/18/21 Rx Ibuprofen [Motrin Ib] 400 mg PO Q8H PRN 02/07/20 07/18/21 History Nitroglycerin Sl Tabs [Nitrostat] 0.4 mg SUBLINGUAL Q5M PRN #25 tab 02/07/20 07/18/21 Rx lisinopriL [Prinivil] 5 mg PO DAILY 30 Days #30 tab 02/07/20 07/18/21 Rx Cholecalciferol [Vitamin D3 (25 25 mcg PO DAILY 07/18/21 07/18/21 History Mcg = 1000 Iu)] HYDROcodone/APAP 7.5-325MG [[place] 1 tab PO Q6HR PRN 07/18/21 07/18/21 History 7.5] Metoprolol Tartrate [Lopressor] 12.5 mg PO BID 07/18/21 07/18/21 History Apixaban [Eliquis] 5 mg PO BID 30 Days #60 tab 07/19/21 Rx Allergies Allergy/AdvReac Type Severity Reaction Status Date / Time No Known Allergies Allergy Verified 07/18/21 15:18 Physical Examination Right upper extremity: Incisions are well healing at this time, sutures are all in good position and condition. There is obvious ecchymosis present surrounding the shoulder. Range of motion of the shoulder was limited due to recent surgery and discomfort. Flexion and extension are intact at the elbow. Wrist extension wrist flexion are intact. Patient is able to wiggle all fingers no difficulties sensory exam to light touch is intact throughout the extremity. His radial and ulnar pulses are 2+. Results - Labs Labs: Abnormal Lab Results - Last 24 Hours (Table) 07/18/21 07/18/21 07/18/21 Range/Units 15:53 18:52 23:03 RBC (4.30-5.90) m/uL Hgb (13.0-17.5) gm/dL Hct (39.0-53.0) % APTT 31.8 H (22.0-30.0) sec D-Dimer (<0.60) mg/L FEU Troponin I 0.188 H* 0.219 H* (0.000-0.034) ng/mL 07/19/21 07/19/21 Range/Units 07:04 07:04 RBC 4.12 L (4.30-5.90) m/uL Hgb 12.7 L (13.0-17.5) gm/dL Hct 37.5 L (39.0-53.0) % APTT 35.3 H (22.0-30.0) sec D-Dimer 0.85 H (<0.60) mg/L FEU Troponin I (0.000-0.034) ng/mL H & H 07/18/21 07/19/21 Range/Units 11:42 07:04 Hgb 14.9 12.7 L (13.0-17.5) gm/dL Hct 45.1 37.5 L (39.0-53.0) % Coagulation 07/18/21 Range/Units 11:42 INR 1.0 (<1.2) Result Diagrams: 07/19/21 07:04 07/19/21 07:04 Assessment and Plan Assessment: History of recent right shoulder arthroscopy, stable Afib with RVR Multiple medical comorbidities Plan: Patient's shoulder remained stable at this time. Recommend continuation of the arm sling and the pendular exercises Patient instructed to follow-up in office next week for first recheck of the right shoulder Please contact our service with any further questions regarding this patient Time with Patient: Less than 30
--- NOTE | 2021-07-19 15:17 | US ---
EXAMINATION TYPE: US venous doppler duplex LE DATE OF EXAM: 07/19/2021 2:43 PM COMPARISON: NONE CLINICAL HISTORY: leg swelling. bilateral leg edema SIDE PERFORMED: bilateral TECHNIQUE: The lower extremity deep venous system is examined utilizing real time linear array sonog tony with graded compression, doppler sonography and color-flow sonography. VESSELS IMAGED: Common Femoral Vein Deep Femoral Vein Greater Saphenous Vein * Femoral Vein Popliteal Vein Small Saphenous Vein * Proximal Calf Veins (* superficial vessels) Right Leg: no evidence of DVT Left Leg: no evidence of DVT Grayscale, color doppler, spectral doppler imaging performed of the deep veins of the bilateral lower extremities. There is normal flow, compressibility, vascular waveforms. IMPRESSION: No ultrasound evidence for acute DVT in either lower extremity.
--- NOTE | 2021-07-19 17:01 | ECHOF ---
Referral Reason:LV function MEASUREMENTS -------- HEIGHT: 172.7 cm WEIGHT: 67.6 kg BP: 105/63 RVIDd: 2.8 cm (< 3.3) IVSd: 1.2 cm (0.6 - 1.1) LVIDd: 4.6 cm (3.9 - 5.3) LVPWd: 1.2 cm (0.6 - 1.1) IVSs: 1.5 cm LVIDs: 3.4 cm LVPWs: 1.7 cm LA Diam: 3.4 cm (2.7 - 3.8) LAESV Index (A-L): 26.61 ml/m Ao Diam: 3.7 cm (2.0 - 3.7) AV Cusp: 1.9 cm (1.5 - 2.6) MV EXCURSION: 21.562 mm (> 18.000) MV EF SLOPE: 101 mm/s (70 - 150) EPSS: 0.5 cm MV E Darren: 1.42 m/s MV DecT: 130 ms MV A Darren: 0.87 m/s MV E/A Ratio: 1.64 FINDINGS -------- Sinus rhythm. This was a technically good study. The left ventricular size is normal. There is borderline concentric left ventricular hypertrophy. Overall left ventricular systolic function is normal with, an EF between 60 - 65 %. The right ventricle is normal in size. Normal LA size by volume 22+/-6 ml/m2. The right atrium is normal in size. Interatrial and interventricular septum intact. The aortic valve is trileaflet, and appears structurally normal. No aortic stenosis or regurgitation. Mild mitral regurgitation is present. The tricuspid valve appears structurally normal. Unable to estimate RVSP due to inadequate TR jet s pectral doppler profile. There is no pulmonic regurgitation present. The aortic root size is normal. Normal inferior vena cava with normal inspiratory collapse consistent with estimated right atrial pre ssure of 5 mmHg. There is no pericardial effusion. CONCLUSIONS -------- 1. The left ventricular size is normal. 2. There is borderline concentric left ventricular hypertrophy. 3. Overall left ventricular systolic function is normal with, an EF between 60 - 65 %. 4. The aortic valve is trileaflet, and appears structurally normal. No aortic stenosis or regurgitati on. 5. Mild mitral regurgitation is present. 6. There is no pericardial effusion. BREAKER TABLE WORKER: Smita Wadsworth RDCS
[2021-07-19] MEDS: ATORVASTATIN 80 MG TAB PO SCH (19:45)
[2021-07-19] MEDS: APIXABAN 5 MG TAB PO SCH (19:46)
[2021-07-19] MEDS: HYDROcodone/APAP 7.5-325MG 1 EACH TAB PO PRN (19:49)
[2021-07-20 07:33] LABS: Basophils % (A) 1 %; Eosinophils # (A) 0.1 k/uL (0-0.7); Eosinophils % (A) 1 %; HCT 36.7 % (39.0-53.0); HGB 12.2 gm/dL (13.0-17.5); Lymphocytes # (A) 1.6 k/uL (1.0-4.8); Lymphocytes % (A) 19 %; MCH 30.4 pg (25.0-35.0); MCHC 33.2 g/dL (31.0-37.0); MCV 91.4 fL (80.0-100.0); Mean Platelet Volume 7.2; Monocytes # (A) 0.5 k/uL (0-1.0); Monocytes % (A) 6 %; Neutrophils # (A) 6.1 k/uL (1.3-7.7); Neutrophils % (A) 73 %; Platelet Count 320 k/uL (150-450); RBC 4.01 m/uL (4.30-5.90); WBC 8.4 k/uL (3.8-10.6)
[2021-07-20] MEDS ORDERED: AMINOPHYLLINE 500 MG/20 ML VIAL IV PRN (09:00)
[2021-07-20] MEDS ORDERED: REGADENOSON 0.4 MG/5 ML SYRINGE IV PRN (09:00)
[2021-07-20] MEDS ORDERED: CAFFEINE CITRATE 60 MG/3 ML VIAL IV PRN (09:00)
[2021-07-20] MEDS ORDERED: REGADENOSON 0.4 MG/5 ML SYRINGE IV ONE (12:00)
[2021-07-20] MEDS: HYDROcodone/APAP 7.5-325MG 1 EACH TAB PO PRN ×2 (12:35→20:00)
[2021-07-20] MEDS: METOPROLOL TARTRATE 25 MG TAB PO SCH ×2 (12:36→19:47)
[2021-07-20] MEDS: lisinopriL 5 MG TAB PO SCH (12:36)
[2021-07-20] MEDS: APIXABAN 5 MG TAB PO SCH (12:36)
[2021-07-20] MEDS: FAMOTIDINE 20 MG/2 ML VIAL IV SCH ×2 (12:36→19:48)
[2021-07-20] MEDS: CHOLECALCIFEROL 25 MCG (1000 IU) TABLET PO SCH (12:36)
[2021-07-20] MEDS: NICOTINE 21MG/24HR PATCH TRANSDERM SCH (12:37)
--- NOTE | 2021-07-20 13:17 | P.PN ---
Subjective Patient is a 66-year-old male with a history significant for CAD status post PCI proxmial RCA, proximal LAD, mid RCA, proximal circumflex, prior PR, ischemic cardiomyopathy, hypertension, dyslipidemia, peripheral vascular disease, chronic nicotine dependence, recent right shoulder surgery June 2021. He follows with Dr. Lobo. Patient presents to the emergency department with worsening palpitations, fluttering in the chest, shortness of breath, and heavy bilateral shoulder pain. His symptoms started Friday night, woke him up out of sleep. His symptoms continued and decided to present to the emergency department. He had some associated diaphoresis. His symptoms are non-exertional, non-radiating. He denies chest pain. He denies symptoms of orthopnea or PND. His symptoms are different then when he had his PR in 2017 at that time he had chest pressure/heaviness. He continues to smoke 1PPD. Denies alcohol or illicit drug use. Denies history of stroke or diabetes. Patient was given 1 L IV fluid bolus and started on IV fluids, given a total of 15 mg of IV Lopressor and started on a heparin drip. DIAGNOTICS EKG on admission reveals atrial fibrillation with rapid ventricular response, left bundle branch block pattern, left axis deviation, heart rate in the 140s. Patient converted to sinus mechanism His EKG revealed sinus rhyhtm, narrow QRS, no significant ST-T wave abnormalities Most recent cardiac catheterization 01/2018 with stent to the proximal RCA, proximal LAD, mid RCA, Impella was placed prior to procedure Echocardiogram revealed ejection fraction of 6065 percent, mild mitral regurgitation. 07/20/2021 Patient seen at bedside, no acute distress. Telemetry reviewed patient continues to obtain sinus mechanism heart rate 5060s. Plan for Lexiscan stress test today. Laboratory data reviewed WBC 0.4, hemoglobin 12.2, platelets 320. He's currently maintained on Eliquis 5 mg twice a day, atorvastatin 80 mg nightly, lisinopril 5 mg daily, metoprolol titrate 25 mg twice a day. PHYSICAL EXAMINATION Blood pressure 137/72, heart rate 60, afebrile, maintaining oxygen saturations on room air. CONSTITUTIONAL: No apparent distress. HEENT: Neck Supple, No JVD. CHEST EXAMINATION: Lungs are clear to auscultation. No chest wall tenderness is noted on palpation or with deep breathing. HEART EXAMINATION: Regular rate and rhythm. S1, S2 heard. No murmurs, gallops or rub. ABDOMEN: Soft, nontender. Positive bowel sounds. EXTREMITIES: 2+ peripheral pulses, no lower extremity edema and no calf tenderness. NEUROLOGIC EXAMINATION: Patient is awake, alert and oriented x3. ASSESSMENT: Paroxysmal atrial fibrillation with RVR, now maintaining sinus mechanism -[id number] score 3 Elevated troponin, most likely demand ischemia due to atrial fibrillation RVR Coronary artery disease status post PCI proxmial RCA, proximal LAD, mid RCA, proximal circumflex Prior PR 2018 Ischemic cardiomyopathy Hypertension Dyslipidemia Peripheral vascular disease Chronic nicotine dependence Recent right shoulder rotator cuff repair on 07/11/21 PLAN: -Continue metoprolol 25mg BID -Continue Eliquis 5 mg BID. Percocet management patient's Eliquis will be covered for a month and [facility]. -Continue aspirin, statin, lisinopril. -From cardiology perspective, the patient's Lexiscan stress test is negative okay to discharge from cardiology perspective. Follow-up with Dr. Lobo in 1-2 weeks. -Due to patient's history of ischemic cardiomyopathy, patient may likely need an ablation, this will be discussed as an outpatient. Objective - Vital Signs Vital signs: Vital Signs Temp 98.3 F 07/20/21 07:50 Pulse 60 07/20/21 08:00 Resp 18 07/20/21 07:50 BP 137/72 07/20/21 07:50 Pulse Ox 98 07/20/21 07:50 Intake & Output 07/19/21 07/20/21 07/20/21 18:59 06:59 18:59 Intake Total 921.818 Output Total 800 600 200 Balance 121.818 -600 -200 Weight 67.6 kg 67.6 kg Intake: Intake, IV Titration 231.818 Amount Heparin Sod,Pork in 0.45% 81.818 NaCl 25,000 unit In 0.45 % NaCl 1 250ml.bag @ 12 UNITS/KG/HR 8.165 mls/hr IV .Q24H [facility] Rx#: [id number] Sodium Chloride 0.9% 1, 150 000 ml @ 75 mls/hr IV . [id number] [facility] Rx#:[id number] Oral 690 Output: Urine 800 600 200 Other: Voiding Method Toilet Toilet Toilet - Labs CBC & Chem 7: 07/20/21 06:54 07/19/21 07:04 Labs: Abnormal Lab Results - Last 24 Hours (Table) 07/20/21 Range/Units 06:54 RBC 4.01 L (4.30-5.90) m/uL Hgb 12.2 L (13.0-17.5) gm/dL Hct 36.7 L (39.0-53.0) %
--- NOTE | 2021-07-20 13:27 | NM ---
EXAMINATION TYPE: NM stress lexiscan cardiolite DATE OF EXAM: 07/20/2021 COMPARISON: NONE HISTORY: Chest pain TECHNIQUE: After the intravenous administration of 9.4 mCi Tc 99m Sestamibi - Cardiolite resting SPE CT images acquired 70 minutes post injection. The patient received 0.4mg Lexiscan, 23.6 mCi Tc 99m Sestamibi - Stress images obtained [address] injection FINDINGS: Review of stress and rest SPECT images demonstrates decreased uptake along the inferolateral left elizabeth tricle towards the base of the heart and stress as compared to rest imaging, decreased uptake is note d along the inferior lateral wall towards the apical left ventricular myocardium on stress and rest i mages. Gated analysis shows normal wall motion with an estimated left ventricular ejection fraction of 58 %. IMPRESSION: Pharmacologically-induced left ventricular myocardial ischemia. There may been prior infarct as descr ibed.
[2021-07-20] MEDS ORDERED: ALPRAZolam 0.25 MG TAB PO PRN (13:51)
[2021-07-20] MEDS ORDERED: ALPRAZolam 0.5 MG TAB PO PRN (13:51)
[2021-07-20] MEDS ORDERED: HEPARIN SODIUM 1,000 UN/ML (10ML VL) IV PRN (14:05)
[2021-07-20] MEDS: HEPARIN SOD,PORK IN 0.45% NACL 25,000 UNIT in 0.45% NACL 1 250ML.BAG IV SCH (14:51)
[2021-07-20 15:27] LABS: INR 1.1 (<1.2); Prothrombin Time 11.5 sec (9.0-12.0)
--- NOTE | 2021-07-20 16:57 | P.STRESS ---
- Stress Test Note Stress Test Results/Findings: Exam Performed: NM stress lexiscan cardiolite Exam Date: 07/20/21 Reason for Exam: A FIB Height: 5 ft 8 in Weight: 67.6 kg Protocol: LEXISCAN CARDIOLITE Stage: NA Duration of Exercise: NA Resting Heart Rate: 60 Resting Blood Pressure: 141/75 Maximum Achieved Heart Rate: 105 Maximum Achieved Blood Pressure: 145/80 85% PMHR: 133 100% PMHR: 156 METS: NA Technologist Comment: Stress Test Results/Findings: This is a 66-year-old gentleman with history of hypertension, family history of ischemic heart disease, smoking history, being evaluated for symptoms of chest pain and shortness of breath. Stress data: Baseline EKG showed sinus rhythm with incomplete right bundle- branch. Blood pressure at rest is 140/75 with pulse rate of 60. A standard dose of Lexiscan was infused. EKGs taken during the infusion showed evidence of a rate-related left bundle-branch block pattern which resolved in the posterior exercise period. Final impression: #1. Nondiagnostic Lexiscan stress test because of development of rate-related left bundle-branch block during the test. #2. Report of the nuclear images to be provided by the radiologist, which will be more pertinent in this case
[2021-07-20] MEDS: ATORVASTATIN 80 MG TAB PO SCH (19:47)
--- NOTE | 2021-07-20 19:53 | P.PN ---
Subjective This is a pleasant 66 years old male with past medical history of Coronary Artery Disease (CAD), Hyperlipidemia, Hypertension. The a clinic and his wet suit gluer is Dr. Garber. Patient presents because workup in the middle of night earlier this morning complaining from fluttering, lightheadedness and dizziness about to pass out with generalized weakness and sweating Also patient was complaining of from pain across his posterior shoulders, stated similar to the stress test he had it previously, it was back pain as per patient, nonradiating. Now is much relieved. He smokes 1 pack per day, no alcohol or illicit drugs. Patient is counseled to quit and he agrees to the nicotine patch On admission he is tachycardic with heart rate around 151. Rest of vitals are stable. He had mild leukocytosis 11.8, rest of CBC, BMP, liver enzymes are unremarkable. BNP is 1190. Elevated 0.08. INR is 1.0 Chest x-ray: COPD and cardiomegaly Emergency room received several doses of IV metoprolol 50 mg in the emergency room and normocephalic 07/19/2021 In today feels better with minimal shoulder pain but also reports he had surgery in his right shoulder about one week ago and there is some limitation in his shoulder movement, therefore going to consult orthopedic team he is admitted with new onset A. fib and RVR, wet suit gluer recommended to continue with anticoagulation heparin and switch it to Eliquis. Also is going for a stress test tomorrow and may need ablation as an outpatient, patient is aware and he told me this information by himself. Other than that he is hemodynamically and labs are stable. Heart rates is in 60s. We will start him on normal saline 75 mm/h for 12 hours, he remains on metoprolol 25 mg, heparin drip, but no aspirin 07/20/2021 This morning patient was waiting for the stress test, he was without shoulder pain or chest pain. And management of plan discussed with him explaining de tails to his understanding and satisfaction. However his stress test came back positive for pharmacologically induced ischemia in the heart therefore patient plan for cardiac cath on Friday and he was restarted on heparin drip. Other than that he is hemodynamically stable. Objective - Vital Signs Vital signs: Vital Signs Temp 98.0 F 07/20/21 15:24 Pulse 68 07/20/21 15:24 Resp 16 10/08/21 15:24 BP 132/85 07/20/21 15:24 Pulse Ox 98 07/20/21 15:24 Intake & Output 07/19/21 07/20/21 07/20/21 18:59 06:59 18:59 Intake Total 921.818 Output Total 800 600 200 Balance 121.818 -600 -200 Weight 67.6 kg 67.6 kg Intake: Intake, IV Titration 231.818 Amount Heparin Sod,Pork in 0.45% 81.818 NaCl 25,000 unit In 0.45 % NaCl 1 250ml.bag @ 12 UNITS/KG/HR 8.165 mls/hr IV .Q24H [facility] Rx#: [id number] Sodium Chloride 0.9% 1, 150 000 ml @ 75 mls/hr IV . [id number] [facility] Rx#:[id number] Oral 690 Output: Urine 800 600 200 Other: Voiding Method Toilet Toilet Toilet - Exam GENERAL: The patient is alert and oriented x3, not in any acute distress. Well developed, well nourished. HEENT: Pupils are round and equally reacting to light. EOMI. No scleral icterus. No conjunctival pallor. Normocephalic, atraumatic. No pharyngeal erythema. No thyromegaly. CARDIOVASCULAR: S1 and S2 present. No murmurs, rubs, or gallops. PULMONARY: Chest is clear to auscultation, no wheezing or crackles. ABDOMEN: Soft, nontender, nondistended, normoactive bowel sounds. No palpable o rganomegaly. MUSCULOSKELETAL: No joint swelling or deformity. EXTREMITIES: No cyanosis, clubbing, or pedal edema. NEUROLOGICAL: Gross neurological examination did not reveal any focal deficits. SKIN: No rashes. no petechiae. - Labs CBC & Chem 7: 07/20/21 06:54 07/19/21 07:04 Labs: Abnormal Lab Results - Last 24 Hours (Table) 07/20/21 Range/Units 06:54 RBC 4.01 L (4.30-5.90) m/uL Hgb 12.2 L (13.0-17.5) gm/dL Hct 36.7 L (39.0-53.0) % Assessment and Plan Assessment: New-onset A. fib with RVR Shoulder pain/chest pain, with positive stress test done for cardiac cath on Friday Recent right shoulder surgery Hypertension Hyperlipidemia History of coronary artery disease Plan: this is a pleasant 66 years old male who presents with A. fib and RVR and shoulder/chest pain cardiology consult. Cardiac cath on Friday wet suit gluer Continue with anticoagulation, heparin drip is restarted and Eliquis based on hold now Continue with metoprolol. aspirin was stopped Follow-up outpatient with consult orthopedic team Labs and medication were reviewed.. Continue same treatment. Continue with symptomatic treatment. Resume home medication. Monitor lytes and vitals. DVT and GI prophylaxis. Further recommendations depends on the clinical course of the patient DVT prophylaxis:heparin drip GI Prophylaxis: Pepcid Prognosis is guarded
[2021-07-21 07:26] LABS: Basophils # (A) 0.1 k/uL (0-0.2); Basophils % (A) 1 %; Eosinophils # (A) 0.1 k/uL (0-0.7); Eosinophils % (A) 2 %; HCT 38.9 % (39.0-53.0); HGB 12.9 gm/dL (13.0-17.5); Lymphocytes # (A) 1.6 k/uL (1.0-4.8); Lymphocytes % (A) 22 %; MCH 30.5 pg (25.0-35.0); MCHC 33.1 g/dL (31.0-37.0); MCV 91.9 fL (80.0-100.0); Mean Platelet Volume 7.6; Monocytes # (A) 0.6 k/uL (0-1.0); Monocytes % (A) 8 %; Neutrophils % (A) 67 %; Platelet Count 317 k/uL (150-450); RBC 4.23 m/uL (4.30-5.90); RDW 11.9 % (11.5-15.5); WBC 7.5 k/uL (3.8-10.6)
[2021-07-21 07:38] LABS: Prothrombin Time 11.1 sec (9.0-12.0)
[2021-07-21 07:43] LABS: African American GFR (CKD) >90 (>60 ml/min/1.73 sqM); Anion Gap 9 mmol/L; Blood Urea Nitrogen 18 mg/dL (9-20); Calcium 9.8 mg/dL (8.4-10.2); Carbon Dioxide 29 mmol/L (22-30); Chloride 101 mmol/L (98-107); Glucose 90 mg/dL (74-99); Non-African American GFR(CKD) 83 (>60 ml/min/1.73 sqM); Potassium 4.5 mmol/L (3.5-5.1); Sodium 139 mmol/L (137-145)
[2021-07-21] MEDS: HYDROcodone/APAP 7.5-325MG 1 EACH TAB PO PRN ×3 (09:11→23:11)
[2021-07-21] MEDS: lisinopriL 5 MG TAB PO SCH (09:12)
[2021-07-21] MEDS: CHOLECALCIFEROL 25 MCG (1000 IU) TABLET PO SCH (09:12)
[2021-07-21] MEDS: METOPROLOL TARTRATE 25 MG TAB PO SCH ×2 (09:12→20:52)
[2021-07-21] MEDS: FAMOTIDINE 20 MG/2 ML VIAL IV SCH ×2 (09:13→20:51)
[2021-07-21] MEDS: NICOTINE 21MG/24HR PATCH TRANSDERM SCH (09:17)
--- NOTE | 2021-07-21 14:22 | P.PN ---
Subjective Progress Note Date: 07/21/21 The patient is a 66-year-old male with past medical history of coronary artery disease status post previous PCI, ischemic cardiomyopathy, hypertension, dyslipidemia, vascular disease, current smoker and recent right shoulder surgery in June 2021, who presented to the hospital with palpitations and shortness of breath. On arrival patient was in atrial fibrillation with RVR, which was a new finding for the patient. He subsequently underwent stress testing which showed a inferior wall ischemia, therefore he will be undergoing coronary angiogram of his primary shactor helper Dr. Lobo on Friday. Overnight the patient states he's been doing well and has no new or worsening symptoms. No chest pain or chest pressure. He states he is breathing well and denies any orthopnea. He's been up ambulating without dizziness or lightheadedness. GENERAL: Well-appearing, well-nourished and in no acute distress. NECK: Supple without JVD or thyromegaly. LUNGS: Breath sounds clear to auscultation bilaterally. Respiration equal and unlabored. No wheezes, rales or rhonchi. HEART: Regular rate and rhythm without murmurs, rubs or gallops. S1 and S2 heard. EXTREMITIES: Normal range of motion, no edema. No clubbing or cyanosis. Peripheral pulses intact and strong. VITALS: Blood pressure 139/79, pulse 55, respiratory rate 15, temp 98.3F, SpO2 96% on room air TELEMETRY: Sinus mechanism. No episodes of atrial fibrillation overnight LABS: WBC 7.5, hemoglobin 12.9, hematocrit 30.9, platelet 317, sodium 139, potassium 4.5, BUN 18, creatinine 0.87 IMPRESSION: Paroxysmal atrial fibrillation with RVR Elevated troponins, likely secondary to A. fib with RVR Coronary artery disease, recent abnormal stress testing, proceed with left heart cath Ischemic cardiomyopathy, recent normal EF Hypertension Dyslipidemia Smoking history PLAN: NPO after mid-night Friday for left heart cath on Friday morning with Dr Lobo Further recommendations based on clinical course The patient has been seen and evaluated. Plan of care has been reviewed and agreed upon by Dr Layne. Objective - Vital Signs Vital signs: Vital Signs Temp 98.3 F 07/21/21 08:56 Pulse 55 L 07/21/21 11:38 Resp 15 07/21/21 11:38 BP 139/79 07/21/21 11:38 Pulse Ox 96 07/21/21 11:38 Intake & Output 07/20/21 07/21/21 07/21/21 18:59 06:59 18:59 Intake Total 960 80.038 803.655 Output Total 200 Balance 760 80.038 803.655 Weight 67.6 kg 66.9 kg Intake: Intake, IV Titration 80.038 83.655 Amount Heparin Sod,Pork in 0.45% 80.038 83.655 NaCl 25,000 unit In 0.45 % NaCl 1 250ml.bag @ 12 UNITS/KG/HR 8.112 mls/hr IV .Q24H [facility] Rx#: [id number] Oral 960 720 Output: Urine 200 Other: Voiding Method Toilet Toilet Toilet # Voids 2 2 - Labs CBC & Chem 7: 07/21/21 05:30 07/21/21 05:30 Labs: Abnormal Lab Results - Last 24 Hours (Table) 07/21/21 07/21/21 Range/Units 05:30 05:30 RBC 4.23 L (4.30-5.90) m/uL Hgb 12.9 L (13.0-17.5) gm/dL Hct 38.9 L (39.0-53.0) % APTT 34.0 H (22.0-30.0) sec
--- NOTE | 2021-07-21 15:02 | P.PN ---
Subjective This is a pleasant 66 years old male with past medical history of Coronary Artery Disease (CAD), Hyperlipidemia, Hypertension. The a clinic and his slot shift manager is Dr. Garber. Patient presents because workup in the middle of night earlier this morning complaining from fluttering, lightheadedness and dizziness about to pass out with generalized weakness and sweating Also patient was complaining of from pain across his posterior shoulders, stated similar to the stress test he had it previously, it was back pain as per patient, nonradiating. Now is much relieved. He smokes 1 pack per day, no alcohol or illicit drugs. Patient is counseled to quit and he agrees to the nicotine patch On admission he is tachycardic with heart rate around 151. Rest of vitals are stable. He had mild leukocytosis 11.8, rest of CBC, BMP, liver enzymes are unremarkable. BNP is 1190. Elevated 0.08. INR is 1.0 Chest x-ray: COPD and cardiomegaly Emergency room received several doses of IV metoprolol 50 mg in the emergency room and normocephalic 07/19/2021 In today feels better with minimal shoulder pain but also reports he had surgery in his right shoulder about one week ago and there is some limitation in his shoulder movement, therefore going to consult orthopedic team he is admitted with new onset A. fib and RVR, slot shift manager recommended to continue with anticoagulation heparin and switch it to Eliquis. Also is going for a stress test tomorrow and may need ablation as an outpatient, patient is aware and he told me this information by himself. Other than that he is hemodynamically and labs are stable. Heart rates is in 60s. We will start him on normal saline 75 mm/h for 12 hours, he remains on metoprolol 25 mg, heparin drip, but no aspirin 07/20/2021 This morning patient was waiting for the stress test, he was without shoulder pain or chest pain. And management of plan discussed with him explaining de tails to his understanding and satisfaction. However his stress test came back positive for pharmacologically induced ischemia in the heart therefore patient plan for cardiac cath on Friday and he was restarted on heparin drip. Other than that he is hemodynamically stable. 07/21/2021 In his work in the room comfortably and freely. His with no chest pain or dyspnea. No other complaint. He is on heparin drip. Plan for cardiac cath on Friday, patient aware and agrees. Continue the rest of medication Cardiology team are following the patient closely Objective - Vital Signs Vital signs: Vital Signs Temp 98.3 F 07/21/21 08:56 Pulse 55 L 07/21/21 11:38 Resp 15 07/21/21 11:38 BP 139/79 07/21/21 11:38 Pulse Ox 96 07/21/21 11:38 Intake & Output 07/20/21 07/21/21 07/21/21 18:59 06:59 18:59 Intake Total 960 80.038 803.655 Output Total 200 Balance 760 80.038 803.655 Weight 67.6 kg 66.9 kg Intake: Intake, IV Titration 80.038 83.655 Amount Heparin Sod,Pork in 0.45% 80.038 83.655 NaCl 25,000 unit In 0.45 % NaCl 1 250ml.bag @ 12 UNITS/KG/HR 8.112 mls/hr IV .Q24H [facility] Rx#: [id number] Oral 960 720 Output: Urine 200 Other: Voiding Method Toilet Toilet Toilet # Voids 2 2 - Exam GENERAL: The patient is alert and oriented x3, not in any acute distress. Well developed, well nourished. HEENT: Pupils are round and equally reacting to light. EOMI. No scleral icterus. No conjunctival pallor. Normocephalic, atraumatic. No pharyngeal erythema. No thyromegaly. CARDIOVASCULAR: S1 and S2 present. No murmurs, rubs, or gallops. PULMONARY: Chest is clear to auscultation, no wheezing or crackles. ABDOMEN: Soft, nontender, nondistended, normoactive bowel sounds. No palpable organomegaly. MUSCULOSKELETAL: No joint swelling or deformity. EXTREMITIES: No cyanosis, clubbing, or pedal edema. NEUROLOGICAL: Gross neurological examination did not reveal any focal deficits. SKIN: No rashes. no petechiae. - Labs CBC & Chem 7: 07/21/21 05:30 07/21/21 05:30 Labs: Abnormal Lab Results - Last 24 Hours (Table) 07/21/21 07/21/21 Range/Units 05:30 05:30 RBC 4.23 L (4.30-5.90) m/uL Hgb 12.9 L (13.0-17.5) gm/dL Hct 38.9 L (39.0-53.0) % APTT 34.0 H (22.0-30.0) sec Assessment and Plan Assessment: New-onset A. fib with RVR Shoulder pain/chest pain, with positive stress test done for cardiac cath on Friday Recent right shoulder surgery Hypertension Hyperlipidemia History of coronary artery disease Plan: this is a pleasant 66 years old male who presents with A. fib and RVR and shoulder/chest pain cardiology consult. Cardiac cath on Friday slot shift manager Continue with anticoagulation, heparin drip is restarted and Eliquis based on hold now Continue with metoprolol. aspirin was stopped Follow-up outpatient with consult orthopedic team Labs and medication were reviewed.. Continue same treatment. Continue with symptomatic treatment. Resume home medication. Monitor lytes and vitals. DVT and GI prophylaxis. Further recommendations depends on the clinical course of the patient DVT prophylaxis:heparin drip GI Prophylaxis: Pepcid Prognosis is guarded
[2021-07-21] MEDS: HEPARIN SOD,PORK IN 0.45% NACL 25,000 UNIT in 0.45% NACL 1 250ML.BAG IV SCH (16:46)
[2021-07-21] MEDS: ATORVASTATIN 80 MG TAB PO SCH (20:52)
[2021-07-22] MEDS: CHOLECALCIFEROL 25 MCG (1000 IU) TABLET PO SCH (08:34)
[2021-07-22] MEDS: lisinopriL 5 MG TAB PO SCH (08:34)
[2021-07-22] MEDS: FAMOTIDINE 20 MG/2 ML VIAL IV SCH ×2 (08:34→20:51)
[2021-07-22] MEDS: HYDROcodone/APAP 7.5-325MG 1 EACH TAB PO PRN ×4 (08:34→23:44)
[2021-07-22] MEDS: METOPROLOL TARTRATE 25 MG TAB PO SCH ×2 (08:34→20:51)
[2021-07-22] MEDS: NICOTINE 21MG/24HR PATCH TRANSDERM SCH (10:35)
--- NOTE | 2021-07-22 12:29 | P.PN ---
Subjective This is a pleasant 66 years old male with past medical history of Coronary Artery Disease (CAD), Hyperlipidemia, Hypertension. The a clinic and his industrial sales engineer is Dr. Garber. Patient presents because workup in the middle of night earlier this morning complaining from fluttering, lightheadedness and dizziness about to pass out with generalized weakness and sweating Also patient was complaining of from pain across his posterior shoulders, stated similar to the stress test he had it previously, it was back pain as per patient, nonradiating. Now is much relieved. He smokes 1 pack per day, no alcohol or illicit drugs. Patient is counseled to quit and he agrees to the nicotine patch On admission he is tachycardic with heart rate around 151. Rest of vitals are stable. He had mild leukocytosis 11.8, rest of CBC, BMP, liver enzymes are unremarkable. BNP is 1190. Elevated 0.08. INR is 1.0 Chest x-ray: COPD and cardiomegaly Emergency room received several doses of IV metoprolol 50 mg in the emergency room and normocephalic 07/19/2021 In today feels better with minimal shoulder pain but also reports he had surgery in his right shoulder about one week ago and there is some limitation in his shoulder movement, therefore going to consult orthopedic team he is admitted with new onset A. fib and RVR, industrial sales engineer recommended to continue with anticoagulation heparin and switch it to Eliquis. Also is going for a stress test tomorrow and may need ablation as an outpatient, patient is aware and he told me this information by himself. Other than that he is hemodynamically and labs are stable. Heart rates is in 60s. We will start him on normal saline 75 mm/h for 12 hours, he remains on metoprolol 25 mg, heparin drip, but no aspirin 07/20/2021 This morning patient was waiting for the stress test, he was without shoulder pain or chest pain. And management of plan discussed with him explaining de tails to his understanding and satisfaction. However his stress test came back positive for pharmacologically induced ischemia in the heart therefore patient plan for cardiac cath on Friday and he was restarted on heparin drip. Other than that he is hemodynamically stable. 07/21/2021 In his work in the room comfortably and freely. His with no chest pain or dyspnea. No other complaint. He is on heparin drip. Plan for cardiac cath on Friday, patient aware and agrees. Continue the rest of medication Cardiology team are following the patient closely 07/22/2021 Patient with known new complaints. No chest pain. No other difficulty. Vitals stable Remains on heparin drip anticipated cardiac cath tomorrow All his questions were answered to his satisfaction Objective - Vital Signs Vital signs: Vital Signs Temp 97.6 F 07/22/21 11:57 Pulse 50 L 07/22/21 11:57 Resp 18 07/22/21 11:57 BP 133/66 07/22/21 11:57 Pulse Ox 96 07/22/21 11:57 Intake & Output 07/21/21 07/22/21 07/22/21 18:59 06:59 18:59 Intake Total 1069.962 Output Total 350 Balance 719.962 Weight 66.6 kg Intake: Intake, IV Titration 169.962 Amount Heparin Sod,Pork in 0.45% 169.962 NaCl 25,000 unit In 0.45 % NaCl 1 250ml.bag @ 12 UNITS/KG/HR 8.112 mls/hr IV .Q24H [facility] Rx#: [id number] Oral 900 Output: Urine 350 Other: Voiding Method Toilet Toilet # Voids 2 - Exam GENERAL: The patient is alert and oriented x3, not in any acute distress. Well developed, well nourished. HEENT: Pupils are round and equally reacting to light. EOMI. No scleral icterus. No conjunctival pallor. Normocephalic, atraumatic. No pharyngeal erythema. No thyromegaly. CARDIOVASCULAR: S1 and S2 present. No murmurs, rubs, or gallops. PULMONARY: Chest is clear to auscultation, no wheezing or crackles. ABDOMEN: Soft, nontender, nondistended, normoactive bowel sounds. No palpable organomegaly. MUSCULOSKELETAL: No joint swelling or deformity. EXTREMITIES: No cyanosis, clubbing, or pedal edema. NEUROLOGICAL: Gross neurological examination did not reveal any focal deficits. SKIN: No rashes. no petechiae. - Labs CBC & Chem 7: 07/21/21 05:30 07/21/21 05:30 Labs: Abnormal Lab Results - Last 24 Hours (Table) 10/09/21 10/10/21 Range/Units 15:46 08:25 APTT 45.1 H 42.5 H (22.0-30.0) sec Assessment and Plan Assessment: New-onset A. fib with RVR Shoulder pain/chest pain, with positive stress test done for cardiac cath on Friday Recent right shoulder surgery Hypertension Hyperlipidemia History of coronary artery disease Plan: this is a pleasant 66 years old male who presents with A. fib and RVR and shoulder/chest pain cardiology consult. Cardiac cath on Friday industrial sales engineer Continue with anticoagulation, heparin drip is restarted and Eliquis based on hold now Continue with metoprolol. aspirin was stopped Follow-up outpatient with consult orthopedic team Labs and medication were reviewed.. Continue same treatment. Continue with s ymptomatic treatment. Resume home medication. Monitor lytes and vitals. DVT and GI prophylaxis. Further recommendations depends on the clinical course of the patient DVT prophylaxis:heparin drip GI Prophylaxis: Pepcid Prognosis is guarded
--- NOTE | 2021-07-22 12:57 | P.PN ---
Subjective Progress Note Date: 07/22/21 Overnight the patient states he's been doing well and has no new or worsening symptoms. No chest pain or chest pressure. He states he is breathing well and denies any orthopnea. He's been up ambulating without dizziness or lightheadedness. GENERAL: Well-appearing, well-nourished and in no acute distress. NECK: Supple without JVD or thyromegaly. LUNGS: Breath sounds clear to auscultation bilaterally. Respiration equal and unlabored. No wheezes, rales or rhonchi. HEART: Regular rate and rhythm without murmurs, rubs or gallops. S1 and S2 heard. EXTREMITIES: Normal range of motion, no edema. No clubbing or cyanosis. Peripheral pulses intact and strong. VITALS: Blood pressure 119/82, SpO2 96% on room air, pulse 56, respiratory rate 18, temp 98.8F TELEMETRY: Sinus mechanism. No episodes of atrial fibrillation overnight IMPRESSION: Paroxysmal atrial fibrillation with RVR Elevated troponins, likely secondary to A. fib with RVR Coronary artery disease, recent abnormal stress testing, proceed with left heart cath Ischemic cardiomyopathy, recent normal EF Hypertension Dyslipidemia Smoking history PLAN: NPO after mid-night Friday for left heart cath on Friday with Dr Lobo Further recommendations based on clinical course The patient has been seen and evaluated. Plan of care has been reviewed and agreed upon by Dr Layne. Objective - Vital Signs Vital signs: Vital Signs Temp 97.6 F 07/22/21 11:57 Pulse 50 L 07/22/21 11:57 Resp 18 07/22/21 11:57 BP 133/66 07/22/21 11:57 Pulse Ox 96 07/22/21 11:57 Intake & Output 07/21/21 07/22/21 07/22/21 18:59 06:59 18:59 Intake Total 1069.962 Output Total 350 Balance 719.962 Weight 66.6 kg Intake: Intake, IV Titration 169.962 Amount Heparin Sod,Pork in 0.45% 169.962 NaCl 25,000 unit In 0.45 % NaCl 1 250ml.bag @ 12 UNITS/KG/HR 8.112 mls/hr IV .Q24H [facility] Rx#: [id number] Oral 900 Output: Urine 350 Other: Voiding Method Toilet Toilet # Voids 2 - Labs CBC & Chem 7: 07/21/21 05:30 07/21/21 05:30 Labs: Abnormal Lab Results - Last 24 Hours (Table) 07/21/21 07/22/21 Range/Units 15:46 08:25 APTT 45.1 H 42.5 H (22.0-30.0) sec
[2021-07-22] MEDS: HEPARIN SOD,PORK IN 0.45% NACL 25,000 UNIT in 0.45% NACL 1 250ML.BAG IV SCH (14:18)
[2021-07-22] MEDS: SODIUM CHLORIDE 0.9% 1,000 ML in EMPTY BAG 1 BAG IV SCH (17:18)
[2021-07-22] MEDS: ATORVASTATIN 80 MG TAB PO SCH (20:51)
[2021-07-23] MEDS: NICOTINE 21MG/24HR PATCH TRANSDERM SCH (02:14)
[2021-07-23] MEDS ORDERED: HEPARIN SODIUM,PORCINE 2,500 UNIT in SODIUM CHLORIDE 0.9% 250 ML IRRIGATION PRN (06:00)
[2021-07-23] MEDS ORDERED: HEPARIN SODIUM,PORCINE 10,000 UNIT in SODIUM CHLORIDE 0.9% 1,000 ML IRRIGATION PRN (06:00)
[2021-07-23] MEDS ORDERED: ASPIRIN 81 MG PO STA (06:14)
[2021-07-23 06:15] LABS: HCT 41.9 % (39.0-53.0); HGB 13.7 gm/dL (13.0-17.5); MCH 30.4 pg (25.0-35.0); MCHC 32.8 g/dL (31.0-37.0); MCV 92.8 fL (80.0-100.0); Mean Platelet Volume 7.2; Platelet Count 368 k/uL (150-450); RBC 4.52 m/uL (4.30-5.90); RDW 12.2 % (11.5-15.5); WBC 9.2 k/uL (3.8-10.6)
[2021-07-23 06:26] LABS: Potassium 4.1 mmol/L (3.5-5.1)
[2021-07-23 06:27] LABS: Calcium 9.8 mg/dL (8.4-10.2)
[2021-07-23] MEDS: SODIUM CHLORIDE 0.9% 1,000 ML in EMPTY BAG 1 BAG IV SCH (06:37)
[2021-07-23] MEDS: HEPARIN SOD,PORK IN 0.45% NACL 25,000 UNIT in 0.45% NACL 1 250ML.BAG IV SCH (06:38)
[2021-07-23] MEDS: lisinopriL 5 MG TAB PO SCH (06:40)
[2021-07-23] MEDS: CHOLECALCIFEROL 25 MCG (1000 IU) TABLET PO SCH (06:40)
[2021-07-23] MEDS: METOPROLOL TARTRATE 25 MG TAB PO SCH ×2 (06:40→21:49)
[2021-07-23] MEDS: FAMOTIDINE 20 MG/2 ML VIAL IV SCH ×2 (06:40→21:49)
[2021-07-23] MEDS: HYDROcodone/APAP 7.5-325MG 1 EACH TAB PO PRN ×4 (06:43→23:51)
[2021-07-23] MEDS ORDERED: LIDOCAINE 1% INJ 10MG/ML (20 ML MDV) ONE (07:10)
[2021-07-23] MEDS ORDERED: VERAPAMIL 2.5 MG/ML 2 ML AMP ONE (07:10)
[2021-07-23] MEDS ORDERED: fentaNYL (PF) 50 MCG/ML 2 ML AMP ONE (07:42)
[2021-07-23] MEDS ORDERED: fentaNYL (PF) 50 MCG/ML 2 ML AMP IVP ONE (07:45)
[2021-07-23] MEDS ORDERED: LIDOCAINE 1% INJ 10MG/ML (20 ML MDV) SQ ONE (07:47)
[2021-07-23] MEDS ORDERED: IV FLUID CONTINUATION 1,000 ML IV ONE (07:49)
[2021-07-23] MEDS ORDERED: VERAPAMIL SYRINGE (5 MG/10 ML) INTRAARTER ONE (07:49)
[2021-07-23] MEDS: HEPARIN SODIUM 1,000 UN/ML (10ML VL) IV ONE ×2 (07:55→08:44)
[2021-07-23] MEDS ORDERED: MIDAZOLAM 2 MG/2 ML VIAL IVP ONE (07:55)
[2021-07-23] MEDS ORDERED: HEPARIN SODIUM 1,000 UN/ML (10ML VL) ONE (07:55)
[2021-07-23] MEDS ORDERED: CLOPIDOGREL 75 MG TAB ONE (08:05)
[2021-07-23] MEDS ORDERED: CLOPIDOGREL 75 MG TAB PO ONE (08:07)
[2021-07-23] MEDS ORDERED: IOPAMIDOL-370 125ML BTL INJ ONE (08:15)
[2021-07-23] MEDS ORDERED: IOPAMIDOL-370 100ML BTL INJ ONE (08:44)
[2021-07-23] MEDS ORDERED: RX INFO: IV CONTRAST WAS GIVEN 1 EACH MISC MISCELLANE PRN (08:55)
[2021-07-23] MEDS ORDERED: NITROGLYCERIN SL TABS 0.4 MG TAB SUBLINGUAL PRN (08:55)
[2021-07-23] MEDS ORDERED: ATROPINE SULFATE 0.1 MG/ML 10ML SYRINGE IV PRN (08:55)
[2021-07-23] MEDS ORDERED: MAG HYDROX/AL HYDROX/SIMETH 30 ML CUP PO PRN (08:55)
[2021-07-23] MEDS ORDERED: ZOLPIDEM 5 MG TAB PO PRN (08:55)
[2021-07-23] MEDS ORDERED: SODIUM CHLORIDE 0.9% 1,000 ML IV SCH (09:00)
[2021-07-23] MEDS: ASPIRIN 81 MG PO SCH (09:05)
[2021-07-23] MEDS ORDERED: HYDROmorphone 0.5 MG/0.5 ML SYRINGE IVP STA (09:29)
--- NOTE | 2021-07-23 10:16 | CC ---
CARDIAC CATHETERIZATION REPORT Mr. Davila is a 66-year-old male with known history of coronary artery disease, status post multivessel angioplasty and stenting, most recently in 2018, who presented with an episode of paroxysmal atrial fibrillation, chest discomfort and troponin elevation. He subsequently had abnormal myocardial perfusion imaging. In view of that, recommendation was made regarding cardiac catheterization. The procedure as well as its risks and the complications were discussed with the patient, who was in full understanding and agreement. PROCEDURE DESCRIPTION: Patient was brought to the cath lab tech in a fasting, semi-sedated state after receiving fentanyl and Benadryl and achieving a moderate conscious sedated state. Using Xylocaine anesthesia and Seldinger technique, a 6-Estonian sheath was introduced in the left radial artery. Selective right and left coronary angiography was performed using 5-Estonian, 4 bend right and left Yesika catheters. Multiple views were taken of the arteries, including hemiaxial views. The right Yesika was used to cross the aortic valve, and left ventricular end-diastolic pressure was calculated. Following that, catheters was removed and images were reviewed. FINDINGS: LEFT MAIN: This is a short-sized vessel, bifurcating into left circumflex and left anterior descending artery. Left main coronary artery has no evidence of high-grade stenosis. LEFT ANTERIOR DESCENDING ARTERY: This is a large-sized vessel giving rise to a large diagonal branch proximally. The stented segment in the proximal LAD has no evidence of in-stent restenosis. There is mild intimal disease in the mid segment stent of 10% to 20%. The rest of the vessel has no high-grade stenosis. LEFT CIRCUMFLEX: This is a nondominant vessel giving rise to 2 obtuse marginal branches. The first one is small in caliber. The second one is large in caliber. The proximal left circumflex had in-stent restenosis of about 90%. There is another plaque of 90% to 95% in the proximal segment of the second obtuse marginal branch. The rest of the vessel has no high-grade stenosis. RIGHT CORONARY ARTERY: This is a large dominant vessel bifurcating into PDA and posterolateral segment and branches. The stented segment in the proximal and mid RCA is patent, while the in the distal segment of the mid RCA at the distal edge of the stent there is an 80% stenosis. There is mild to moderate disease in the distal RCA beyond that, but no high-grade stenosis. LEFT VENTRICULOGRAM: Left ventriculogram was not performed. HEMODYNAMICS: There was no gradient across the aortic valve. The left ventricular end- diastolic pressure was 12 to 16 the mmHg. CONCLUSION: 1. Significant stenosis involving the distal mid segment of the RCA. 2. Significant stenosis in the proximal left circumflex and in the second obtuse marginal branch. RECOMMENDATION: In view of the findings, I have recommended proceeding with angioplasty and stenting. The procedure as well as its risks and complications were discussed with the patient, who is in full understanding and agreement. MMPARTH / BECKY: [id number] /
--- NOTE | 2021-07-23 10:22 | PTCA ---
PERCUTANEOUSTRANS CORORONARY ANGIOGRAPHY Mr. Davila is a 66-year-old male with known history of coronary artery disease who presented with symptoms of chest discomfort, atrial fibrillation and mild troponin elevation. He underwent cardiac catheterization and was found to have critical stenosis involving the RCA and the left circumflex. In view of that, recommendation was made regarding angioplasty and stenting. The procedure as well as its risks and complications were discussed with the patient, who was in full understanding and agreement. PROCEDURE DESCRIPTION: A 6-Vietnamese FR4 guiding catheter was introduced into the system. After cannulating the right coronary ostium, a 0.014 balanced medium weight J-wire was advanced across the lesion, positioned distally. Then a 2.5 x 12 mm NC Trek balloon was advanced and one inflation at 8 atmospheres was done. Following that the balloon was removed and a 3.0 x 18 mm Xience Skypoint stent was advanced, deployed and post-dilated at 16 atmospheres. After the last inflation, after appropriate wait, the balloon and the guidewire were withdrawn back into the guiding catheter. Images were obtained and repeated. Those images revealed stable successful stenting. At that point, the guiding catheter, the balloon and the guidewire were removed and a 6-Vietnamese FR4 guiding catheter was introduced into the system. After cannulating the left main, a 0.014 balanced medium weight J-wire was advanced in the distal second obtuse marginal branch and a 2.5 x 12 mm NC Trek balloon was advanced. Inflation in the second obtuse marginal branch as well as in the proximal left circumflex was done at maximum of 8 atmospheres. Following that, the balloon was removed and a 2.25 x 18 mm Xience Skypoint stent was deployed in the obtuse marginal branch and post-dilated at 16 atmospheres. After removing the balloon, a 3.0 x 15 mm Xience Skypoint stent was deployed in the proximal left circumflex and post-dilated at 16 atmospheres. After the last inflation, after appropriate wait, the balloon and the guidewire were withdrawn back into the guiding catheter. Images were obtained and repeated. Those images revealed stable successful stenting. At that point, the guiding catheter, the balloon and the guidewire were removed. The sheath was removed. Hemostasis was obtained with deployment of a TR band. There was no immediate complication. Patient was returned to his room in stable condition. Of note, the patient received a total of 6000 units of intravenous heparin as well as oral loading dose of clopidogrel. His ACT was followed. He had mild chest discomfort with the RCA inflation and mild EKG changes that resolved. RESULTS: 1. Successful stenting of the distal segment of the mid RCA with reduction of stenosis from 80% to 0%. 2. Successful stenting of the second obtuse marginal branch with reduction of stenosis from 90% to 0%. 3. Successful stenting of the proximal left circumflex with reduction of stenosis from 90% to 0%. RECOMMENDATIONS: Patient will be continued on aspirin, Plavix and statin. The importance of dual antiplatelet treatment was discussed with the patient, who was in full understanding and agreement. Subsequently his aspirin will be stopped and he will be continued on Plavix and anticoagulation. Depending on his progress, further recommendations will be made. Duration of sedation was 54 minutes. YOBANY / BECKY: [id number] /
[2021-07-23] MEDS ORDERED: ONDANSETRON 4 MG/2 ML VIAL IVP PRN (10:48)
[2021-07-23] MEDS ORDERED: bisacodyL 10 MG SUPP RECTAL STA (11:05)
[2021-07-23 13:28] VITALS: BMI 22.2
[2021-07-23] MEDS: ATORVASTATIN 80 MG TAB PO SCH (21:49)
[2021-07-24] MEDS: NICOTINE 21MG/24HR PATCH TRANSDERM SCH (08:40)
[2021-07-24 08:50] VITALS: RESP 17
[2021-07-24] MEDS: FAMOTIDINE 20 MG/2 ML VIAL IV SCH (08:51)
[2021-07-24] MEDS: CHOLECALCIFEROL 25 MCG (1000 IU) TABLET PO SCH (08:51)
[2021-07-24] MEDS: ASPIRIN 81 MG PO SCH (08:51)
[2021-07-24] MEDS: METOPROLOL TARTRATE 25 MG TAB PO SCH (08:52)
[2021-07-24] MEDS: HYDROcodone/APAP 7.5-325MG 1 EACH TAB PO PRN (08:52)
[2021-07-24] MEDS: lisinopriL 5 MG TAB PO SCH (08:52)
[2021-07-24] MEDS ORDERED: APIXABAN 5 MG TAB PO SCH (09:00)
[2021-07-24] MEDS ORDERED: CLOPIDOGREL 75 MG TAB PO SCH (09:00)
[2021-07-24 09:18] LABS: Calcium 9.5 mg/dL (8.4-10.2); Potassium 4.4 mmol/L (3.5-5.1)
--- NOTE | 2021-07-24 11:43 | P.PN ---
Subjective Progress Note Date: 07/24/21 HISTORY OF PRESENT ILLNESS: Patient underwent cardiac catheterization yesterday with Dr. Lobo with stenting of the distal segment of the mid RCA, stenting of the second obtuse marginal branch, and stenting of the proximal left circumflex. Patient examined this morning at the bedside. Patient denies chest pain or pressure. He denies shortness of breath. He has been up ambulating without difficulty. He is hoping to be discharged home today. Vital signs are stable. PHYSICAL EXAM: VITAL SIGNS: Reviewed. GENERAL: Well-developed in no acute distress. NECK: Supple. No JVD or thyromegaly LUNGS: Respirations even and unlabored. Lungs essentially clear to auscultation bilaterally. HEART: Regular rate and rhythm. S1 and S2 heard. EXTREMITIES: Normal range of motion. No clubbing or cyanosis. Peripheral pulses intact. No lower extremity edema ASSESSMENT: Coronary artery disease s/p cardiac cath with multivessel PCI Paroxysmal atrial fibrillation Ischemic cardiomyopathy Hypertension Hyperlipidemia PLAN: Continue aspirin and plavix Resume Eliquis Continue additional cardiac medications Patient may be discharged home today Follow up with Dr. Lobo Nurse practitioner note has been reviewed by physician. Signing provider agrees with the documented findings, assessment, and plan of care. Objective - Vital Signs Vital signs: Vital Signs Temp 98.4 F 07/24/21 08:00 Pulse 63 07/24/21 08:00 Resp 17 07/24/21 08:00 BP 135/67 07/24/21 08:00 Pulse Ox 97 07/24/21 08:00 Intake & Output 07/23/21 07/24/21 07/24/21 18:59 06:59 18:59 Intake Total 2281.2 240 Output Total 100 Balance 2181.2 240 Weight 66.3 kg Intake: IV 871.2 Invasive Line 3 10 Sodium Chloride 0.9% 1, 811.2 000 ml In Empty Bag 1 bag @ 1 ML/KG/HR 67.6 mls/hr IV .[id number] [facility] Rx#: [id number] Intake, IV Titration 450 Amount Sodium Chloride 0.9% 1, 450 000 ml @ 75 mls/hr IV . [id number] [facility] Rx#:[id number] Oral 960 240 Output: Urine 100 Other: Voiding Method Toilet Toilet Toilet # Voids 3 1 1 # Bowel Movements 2 - Labs CBC & Chem 7: 07/23/21 05:51 07/24/21 08:34 Labs: Abnormal Lab Results - Last 24 Hours (Table) 07/24/21 Range/Units 08:34 Sodium 136 L (137-145) mmol/L BUN 22 H (9-20) mg/dL Glucose 134 H (74-99) mg/dL
[2021-07-24 12:47] VITALS: BP 144/82; PULSE 55; TEMP 98
== END 2021-07-24 15:40 | disposition home or self-care (01) | DRG 247 ==
LOC: EC 10:59 → 3SCARD 14:35 → OBSVTOIN 07-20 15:31
PROVIDERS: ADMIT Internal Medicine; ATTEND Internal Medicine
PROC: 027236Z Dilation of Coronary Artery, Three Arteries with Three Drug-eluting Intraluminal Devices, Percutaneous Approach (ICD-10-PCS; principal; 2021-07-23 07:30)
PROC: B2111ZZ Fluoroscopy of Multiple Coronary Arteries using Low Osmolar Contrast (ICD-10-PCS; principal; 2021-07-23 07:30)
DX: I48.0 Paroxysmal atrial fibrillation (principal); I24.8 Other forms of acute ischemic heart disease; I11.9 Hypertensive heart disease without heart failure; E78.5 Hyperlipidemia, unspecified; I73.9 Peripheral vascular disease, unspecified; Z20.822 Contact with and (suspected) exposure to COVID-19; I25.5 Ischemic cardiomyopathy; I44.7 Left bundle-branch block, unspecified; I08.1 Rheumatic disorders of both mitral and tricuspid valves; I25.10 Atherosclerotic heart disease of native coronary artery without angina pectoris; I25.2 Old myocardial infarction; F17.210 Nicotine dependence, cigarettes, uncomplicated; Z71.6 Tobacco abuse counseling; Z79.82 Long term (current) use of aspirin; Z79.899 Other long term (current) drug therapy; Z87.39 Personal history of other diseases of the musculoskeletal system and connective tissue; Z95.5 Presence of coronary angioplasty implant and graft; Z82.49 Family history of ischemic heart disease and other diseases of the circulatory system; Z80.1 Family history of malignant neoplasm of trachea, bronchus and lung
CPT/HCPCS: 36415; 71045; 78452; 80048; 80053; 80061; 81003; 83735; 83880; 84443; 84484; 85025; 85027; 85379; 85610; 85730; 87635; 93005; 93017; 93306; 93458; 93970; 96361; 96374; 96375; 96376; 99291

== ENCOUNTER 2022-04-17 19:46 | Emergency (ER) | payer OTHER ==
[2022-04-17 20:31] VITALS: RESP 20; TEMP 97.8
[2022-04-17] MEDS ORDERED: KETOROLAC 15 MG/ML 1 ML VIAL IM STA (22:41)
--- NOTE | 2022-04-17 22:53 | ED ---
General Adult HPI - General Chief complaint: Upper Respiratory Infection Stated complaint: Body Aches Time Seen by Provider: 04/17/22 22:23 Source: patient Mode of arrival: wheelchair Limitations: no limitations - History of Present Illness Initial comments: Patient is a 67-year-old male presenting with chief complaint of body aches. 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 He admits to diarrhea, and states that a few hours ago he began experiencing mild pain in the left upper quadrant which wraps around to the back. He denies any chest pain, shortness of breath, fever, chills, nausea, vomiting, headache, vision changes, sore throat, cough, congestion, sinus pain, dysuria, hematuria, urgency, frequency. - Related Data Home Medications Medication Instructions Recorded Confirmed Cholecalciferol [Vitamin D3 (25 25 mcg PO DAILY 07/18/21 07/18/21 Mcg = 1000 Iu)] HYDROcodone/APAP 7.5-325MG [[place] 1 tab PO Q6HR PRN 07/18/21 07/18/21 7.5-325] Previous Rx's Medication Instructions Recorded Atorvastatin [Lipitor] 80 mg PO HS #30 tab 02/07/20 Nitroglycerin Sl Tabs [Nitrostat] 0.4 mg SUBLINGUAL Q5M PRN #25 tab 02/07/20 lisinopriL [Prinivil] 5 mg PO DAILY 30 Days #30 tab 02/07/20 Apixaban [Eliquis] 5 mg PO BID 30 Days #60 tab 07/24/21 Aspirin 81 mg PO DAILY 30 Days #30 tab 07/24/21 Clopidogrel Bisulfate [Plavix] 75 mg PO DAILY 30 Days #30 tab 07/24/21 Metoprolol Tartrate 25 mg PO BID 30 Days #60 tab 07/24/21 Allergies Allergy/AdvReac Type Severity Reaction Status Date / Time No Known Allergies Allergy Verified 04/17/22 20:31 Review of Systems ROS Statement: Those systems with pertinent positive or pertinent negative responses have been documented in the HPI. ROS Other: All systems not noted in ROS Statement are negative. Past Medical History Past Medical History: Coronary Artery Disease (CAD), Hyperlipidemia, Hypertension, [place]ocardial Infarction ([place]) Additional Past Medical History / Comment(s): covid jul 2021 Last Myocardial Infarction Date:: 12/04/17 History of Any Multi-Drug Resistant Organisms: None Reported Past Surgical History: Heart Catheterization With Stent, Orthopedic Surgery Additional Past Surgical History / Comment(s): R shoulder Past Anesthesia/Blood Transfusion Reactions: No Reported Reaction Date of Last Stent Placement:: 12/04/17 Past Psychological History: No Psychological Hx Reported Smoking Status: Current every day smoker Past Alcohol Use History: None Reported Past Drug Use History: None Reported - Past Family History Father Family Medical History: Myocardial Infarction ([place]) Additional Family Medical History / Comment(s): smoker, lung CA Mother Family Medical History: No Reported History General Exam Limitations: no limitations General appearance: alert, in no apparent distress Head exam: Present: atraumatic, normocephalic, normal inspection Eye exam: Present: normal appearance, EOMI. Absent: scleral icterus, periorbital swelling ENT exam: Present: normal exam, mucous membranes moist Neck exam: Present: normal inspection Respiratory exam: Present: normal lung sounds bilaterally. Absent: respiratory distress, wheezes, rales, rhonchi, stridor Cardiovascular Exam: Present: regular rate, normal rhythm, normal heart sounds. Absent: systolic murmur, diastolic murmur, rubs, gallop, clicks GI/Abdominal exam: Present: soft. Absent: distended, tenderness, guarding, rebound, rigid Back exam: Present: normal inspection, full ROM. Absent: CVA tenderness (R), CVA tenderness (L) Neurological exam: Present: alert, oriented X3, CN II-XII intact Psychiatric exam: Present: normal affect, normal mood Skin exam: Present: warm, dry, intact, normal color. Absent: rash Course Vital Signs 04/17/22 04/18/22 04/18/22 20:24 01:00 01:14 Temperature 97.8 F 97.8 F Pulse Rate 59 L 70 70 Respiratory 20 20 Rate Blood Pressure 160/77 154/74 154/74 O2 Sat by Pulse 99 99 Oximetry Medical Decision Making - Medical Decision Making Patient is a 67-year-old male presenting with chief complaint of body aches. States that he works as a humph[employer] and this is a common occurrence, however today he feels much more fatigued than normal. Denies cough, congestion, sore throat, fever, chills, nausea, vomiting, chest pain, shortness of breath, abdominal pain. Examination is unremarkable. Patient is negative for Covid and influenza. Urine shows 3+ ketones and trace protein. Body aches likely attributed to dehydration. I counseled the patient on these findings and stressed the importance of oral rehydration. Patient agreed to diligently hydrating with water and Gatorade at home. Follow-up with PCP in one to 2 days. Report back to ER with any new or worsening symptoms. I discussed return parameters and answered all questions. Patient conveyed verbal understanding and agreed to the plan. I discussed this case with my attending Dr. Long - Lab Data Lab Results 04/17/22 04/17/22 04/17/22 Range/Units 20:34 23:22 23:30 Urine Color Yellow Urine Appearance Clear (Clear) Urine pH 6.0 (5.0-8.0) Ur Specific [place] 1.026 (1.001-1.035) Urine Protein Trace H (Negative) Urine Glucose (UA) Negative (Negative) Urine Ketones 3+ H (Negative) Urine Blood Negative (Negative) Urine Nitrite Negative (Negative) Urine Bilirubin Negative (Negative) Urine Urobilinogen <2.0 (<2.0) mg/dL Ur Leukocyte Esterase Negative (Negative) Coronavirus (PCR) Not Detected (Not Detectd) Influenza Type A RNA Not Detected (Not Detectd) Influenza Type B (PCR) Not Detected (Not Detectd) Disposition Clinical Impression: Dehydration Disposition: HOME SELF-CARE Condition: Good Instructions (If sedation given, give patient instructions): Dehydration (ED) Additional Instructions: Follow-up with PCP in one to 2 days. Report back to ER with any new or worsening symptoms. Hydration with water and/or Gatorade is of utmost importance. Get plenty of rest. Is patient prescribed a controlled substance at d/c from ED?: No Referrals: Monika Wilhelm NPC [Nurse Practitioner] - 1-2 days Time of Disposition: 00:21
[2022-04-17 23:52] LABS: Appearance,Urine Clear (Clear); Bilirubin,Urine Negative (Negative); Blood,Urine Negative (Negative); Color,Urine Yellow; Glucose,Urine (UA) Negative (Negative); Ketones,Urine 3+ (Negative); Leukocyte Esterase,Urine Negative (Negative); Nitrite,Urine Negative (Negative); Protein,Urine Trace (Negative); Specific Gravity,Urine 1.026 (1.001-1.035); Urobilinogen,Urine <2.0 mg/dL (<2.0)
[2022-04-18 01:12] VITALS: BP 154/74; PULSE 70
== END 2022-04-18 01:14 | disposition home or self-care (01) ==
LOC: EC 19:46
DX: E86.0 Dehydration (principal); I10 Essential (primary) hypertension; E78.5 Hyperlipidemia, unspecified; I25.10 Atherosclerotic heart disease of native coronary artery without angina pectoris; I25.2 Old myocardial infarction; Z86.16 Personal history of COVID-19; F17.200 Nicotine dependence, unspecified, uncomplicated; Z79.82 Long term (current) use of aspirin; Z79.899 Other long term (current) drug therapy; Z20.822 Contact with and (suspected) exposure to COVID-19
CPT/HCPCS: 99284 ×2; 96372 ×2; 81003; 87502; 87635; J1885

== ENCOUNTER 2023-05-01 20:36 | Inpatient (IN) | payer OTHER ==
[2023-05-01] MEDS ORDERED: DILTIAZEM DRIP BOLUS FROM BAG 1 MG SOLN IV ONE ×2 (20:53→22:20)
[2023-05-01] MEDS ORDERED: SODIUM CHLORIDE 0.9% 1,000 ML IV STA (20:53)
[2023-05-01] MEDS ORDERED: DILTIAZEM 125 MG in SODIUM CHLORIDE 0.9% 100 ML IV SCH (21:00)
--- NOTE | 2023-05-01 21:15 | ED ---
Arrhythmia/Palpitations HPI - General Chief Complaint: Arrhythmia/Palpitations Stated Complaint: AFib Time Seen by Provider: 05/01/23 20:51 Source: patient, EMS, RN notes reviewed, old records reviewed Mode of arrival: EMS Limitations: no limitations - History of Present Illness Initial Comments: This is a 68-year-old male to the emergency department for evaluation today. Patient Dese for evaluation of dizziness and weakness, patient has underlying h eart history with significant history of stents and arrhythmia, patient is in A. fib and history of atrial fibrillation. Patient states his heart rate does feel significantly elevated isn't taking medication as prescribed including rate control medication and Ahlquist. Patient has no chest pain no shortness of breath just feeling weak. No recent change in medications, patient stopped smoking a year ago and denies any other complaints no recent fever nausea vomiting or diarrhea MD Complaint: rapid heart beat, "heart racing", palpitations, atrial fibrillation -: hour(s) Arrhythmia History: atrial fibrillation, history of electrical cardioversion Associated Symptoms: near-syncope, anxiety Treatments Prior to Arrival: other - Related Data Home Medications Medication Instructions Recorded Confirmed Cholecalciferol [Vitamin D3 (25 25 mcg PO BID 07/18/21 05/01/23 Mcg = 1000 Iu)] Acetaminophen Tab [Tylenol] 1,000 mg PO DAILY 05/01/23 05/01/23 Acetaminophen Tab [Tylenol] 500 mg PO HS 05/01/23 05/01/23 Previous Rx's Medication Instructions Recorded Atorvastatin [Lipitor] 80 mg PO HS #30 tab 02/07/20 Nitroglycerin Sl Tabs [Nitrostat] 0.4 mg SUBLINGUAL Q5M PRN #25 tab 02/07/20 lisinopriL [Prinivil] 5 mg PO DAILY 30 Days #30 tab 02/07/20 Apixaban [Eliquis] 5 mg PO BID 30 Days #60 tab 07/24/21 Aspirin 81 mg PO DAILY 30 Days #30 tab 07/24/21 Metoprolol Tartrate [Lopressor] 50 mg PO BID #60 tab 05/02/23 Allergies Allergy/AdvReac Type Severity Reaction Status Date / Time No Known Allergies Allergy Verified 05/01/23 23:06 Review of Systems ROS Statement: Those systems with pertinent positive or pertinent negative responses have been documented in the HPI. ROS Other: All systems not noted in ROS Statement are negative. Past Medical History Past Medical History: Coronary Artery Disease (CAD), Hyperlipidemia, Hypertension, Myocardial Infarction ([place]) Additional Past Medical History / Comment(s): covid jul 2021 Last Myocardial Infarction Date:: 12/04/17 History of Any Multi-Drug Resistant Organisms: None Reported Past Surgical History: Heart Catheterization With Stent, Orthopedic Surgery Additional Past Surgical History / Comment(s): R shoulder, right foot bunion removal Past Anesthesia/Blood Transfusion Reactions: No Reported Reaction Date of Last Stent Placement:: 12/04/17 Past Psychological History: No Psychological Hx Reported Smoking Status: Current every day smoker Past Alcohol Use History: None Reported Past Drug Use History: None Reported - Past Family History Father Family Medical History: Myocardial Infarction ([place]) Additional Family Medical History / Comment(s): smoker, lung CA Mother Family Medical History: No Reported History General Exam General appearance: alert, in no apparent distress, anxious Head exam: Present: atraumatic, normocephalic, normal inspection Eye exam: Present: normal appearance, PERRL, EOMI. Absent: scleral icterus, conjunctival injection, periorbital swelling ENT exam: Present: normal exam, mucous membranes moist Neck exam: Present: normal inspection. Absent: tenderness, meningismus, lymphadenopathy Respiratory exam: Present: normal lung sounds bilaterally. Absent: respiratory distress, wheezes, rales, rhonchi, stridor Cardiovascular Exam: Present: tachycardia, irregular rhythm, normal heart sounds. Absent: systolic murmur, diastolic murmur, rubs, gallop, clicks GI/Abdominal exam: Present: soft, normal bowel sounds. Absent: distended, tenderness, guarding, rebound, rigid Extremities exam: Present: normal inspection, full ROM, normal capillary refill. Absent: tenderness, pedal edema, joint swelling, calf tenderness Back exam: Present: normal inspection Neurological exam: Present: alert, oriented X3, CN II-XII intact Psychiatric exam: Present: normal affect, normal mood Skin exam: Present: warm, dry, intact, normal color. Absent: rash Course Vital Signs 05/01/23 05/01/23 05/01/23 20:38 21:05 21:20 Temperature 99.0 F Pulse Rate 153 H 174 H Respiratory 18 18 Rate Blood Pressure 128/117 101/83 O2 Sat by Pulse 99 97 Oximetry 05/01/23 05/01/2305/01/23 21:34 21:45 22:00 Temperature Pulse Rate 124 H 121 H 104 H Respiratory 20 18 18 Rate Blood Pressure 108/73 105/82 98/73 O2 Sat by Pulse 98 98 99 Oximetry 05/01/23 05/01/23 05/02/23 22:21 22:31 00:00 Temperature Pulse Rate 133 H 100 137 H Respiratory 18 18 16 Rate Blood Pressure 101/70 105/75 130/120 O2 Sat by Pulse 98 98 98 Oximetry 05/02/23 05/02/23 00:05 00:10 Temperature Pulse Rate 116 H 118 H Respiratory 17 16 Rate Blood Pressure 111/43 93/60 O2 Sat by Pulse 98 98 Oximetry - Reevaluation(s) Reevaluation #1: 05/01/23 23:14 Medical record is reviewed Reevaluation #2: 05/01/23 23:15 Heart rate is difficult to control with soft blood pressures Reevaluation #3: 05/01/23 23:15 Patient informed results and questions answered Reevaluation #4: 05/01/23 23:15 Was pt. sent in by a medical professional or institution? @ -no Did you speak to anyone other than the patient for history? @ -no Did you review nursing and triage notes? @ -agree Were old charts reviewed? @ -yes Differential Diagnosis? @ -prior EKG interpreted by me (3pts min.)? @ -yes X-rays interpreted by me (1pt min.)? @ -no CT interpreted by me (1pt min.)? @ -no U/S interpreted by me (1pt. min.)? @ -no What testing was considered but not performed? (CT, X-rays, U/S, labs)? Why? @ -no What meds were considered but not given? Why? @ -no Did you discuss the management of the patient with other professionals? @ -no Did you reconcile home meds? @ -no Was smoking cessation discussed for >3mins.? @ -no Was critical care preformed (if so, how long)? @ -yes31 Were there social determinants of health that impacted care today? How? (Homelessness, low income, unemployed, alcoholism, drug addiction, transportation, low edu. Level, literacy, decrease access to med. care, [facility], rehab)? @ -no Was there de-escalation of care discussed even if they declined? (Discuss DNR or withdrawal of care, Hospice)? @ -no What co-morbidities impacted this encounter? (DM, HTN, Smoking, COPD, CAD, Cancer, CVA, Hep., AIDS, mental health diagnosis, sleep apnea, morbid obesity)? @ -no Was patient admitted / discharged? @ -68 male presenting today for evaluation of weakness and elevated heart rate found to be in atrial fibrillation with RVR. Patient's heart rate is difficult to complete roll with soft blood pressure. With multiple medications including Cardizem and metoprolol patient's heart rate has maintained around the 100, no chest pain throughout entire ER stay troponin is negative, patient's EKG does look ischemic with no ST elevation especially at a rapid rate. Patient be admitted for cardiology evaluation and treatment, patient is on Ahlquist has a blood thinner Undiagnosed new problem with uncertain prognosis? @ -no Drug Therapy requiring intensive monitoring for toxicity (Heparin, Nitro, Insulin, Cardizem)? @ -no Were any procedures done? @ -no Diagnosis/symptom? @ -Atrial fibrillation with RVR and chest pain Acute, or Chronic, or Acute on Chronic? @ -acute Uncomplicated (without systemic symptoms) or Complicated (systemic symptoms)? @ -complicated Side effects of treatment? @ -no Exacerbation, Progression, or Severe Exacerbation] @ -no Poses a threat to life or bodily function? @ -yes severe dysrhythmia Reevaluation #5: 05/01/23 23:15 Differential Weakness: Hypoglycemia, shock, sepsis, hyponatremia, anemia, infection, [place], ETOH, adverse medicine reaction, overdose, stroke, this is not meant to be an all-inclusive li st. Differential Dizziness: Benign paroxysmal positional Vertigo, Menieres disease, otitis media, acoustic neuroma, vertebrobasilar insufficiency, cerebellar stroke, encephalitis, hypovolemic, arrhythmia, coronary artery syndrome, anemia, this is not meant to be an all-inclusive list - Consultations Consultation #1: Spoke with admitting physicians who agree to admit this patient Medical Decision Making - Medical Decision Making 68 male presenting today for evaluation of weakness and elevated heart rate found to be in atrial fibrillation with RVR. Patient's heart rate is difficult to complete roll with soft blood pressure. With multiple medications including Cardizem and metoprolol patient's heart rate has maintained around the 100, no chest pain throughout entire ER stay troponin is negative, patient's EKG does look ischemic with no ST elevation especially at a rapid rate. Patient be admitted for cardiology evaluation and treatment, patient is on Ahlquist has a blood thinner - Lab Data Result diagrams: 05/02/23 04:22 05/02/23 04:22 Lab Results 05/01/23 05/01/23 05/01/23 Range/Units 21:06 21:06 21:06 WBC 9.5 (3.8-10.6) k/uL RBC 4.71 (4.30-5.90) m/uL Hgb 14.2 (13.0-17.5) gm/dL Hct 41.6 (39.0-53.0) % MCV 88.2 (80.0-100.0) fL MCH 30.1 (25.0-35.0) pg MCHC 34.2 (31.0-37.0) g/dL RDW 12.4 (11.5-15.5) % Plt Count 263 (150-450) k/uL MPV 7.7 Neutrophils % 70 % Lymphocytes % 19 % Monocytes % 7 % Eosinophils % 2 % Basophils % 0 % Neutrophils # 6.7 (1.3-7.7) k/uL Lymphocytes # 1.8 (1.0-4.8) k/uL Monocytes # 0.7 (0-1.0) k/uL Eosinophils # 0.2 (0-0.7) k/uL Basophils # 0.0 (0-0.2) k/uL PT 11.5 (9.0-12.0) sec INR 1.1 (<1.2) APTT 27.6 (22.0-30.0) sec Sodium 137 (137-145) mmol/L Potassium 4.2 (3.5-5.1) mmol/L Chloride 104 (98-107) mmol/L Carbon Dioxide 23 (22-30) mmol/L Anion Gap 10 mmol/L BUN 21 H (9-20) mg/dL Creatinine 0.84 (0.66-1.25) mg/dL Est GFR (CKD-EPI)AfAm >90 (>60 ml/min/1.73 sqM) Est GFR (CKD-EPI)NonAf >90 (>60 ml/min/1.73 sqM) Glucose 117 H (74-99) mg/dL Plasma Lactic Acid Ty (0.7-2.0) mmol/L Calcium 8.8 (8.4-10.2) mg/dL Phosphorus 2.7 (2.5-4.5) mg/dL Magnesium 1.7 (1.6-2.3) mg/dL Total Bilirubin 0.9 (0.2-1.3) mg/dL AST 29 (17-59) U/L ALT 33 (4-49) U/L Alkaline Phosphatase 108 (38-126) U/L Troponin I (0.000-0.034) ng/mL NT-Pro-B Natriuret Pep 301 pg/mL Total Protein 7.0 (6.3-8.2) g/dL Albumin 4.1 (3.5-5.0) g/dL TSH 6.700 H (0.465-4.680) mIU/L 05/01/23 05/01/23 Range/Units 21:06 21:06 WBC (3.8-10.6) k/uL RBC (4.30-5.90) m/uL Hgb (13.0-17.5) gm/dL Hct (39.0-53.0) % MCV (80.0-100.0) fL MCH (25.0-35.0) pg MCHC (31.0-37.0) g/dL RDW (11.5-15.5) % Plt Count (150-450) k/uL MPV Neutrophils % % Lymphocytes % % Monocytes % % Eosinophils % % Basophils % % Neutrophils # (1.3-7.7) k/uL Lymphocytes # (1.0-4.8) k/uL Monocytes # (0-1.0) k/uL Eosinophils # (0-0.7) k/uL Basophils # (0-0.2) k/uL PT (9.0-12.0) sec INR (<1.2) APTT (22.0-30.0) sec Sodium (137-145) mmol/L Potassium (3.5-5.1) mmol/L Chloride (98-107) mmol/L Carbon Dioxide (22-30) mmol/L Anion Gap mmol/L BUN (9-20) mg/dL Creatinine (0.66-1.25) mg/dL Est GFR (CKD-EPI)AfAm (>60 ml/min/1.73 sqM) Est GFR (CKD-EPI)NonAf (>60 ml/min/1.73 sqM) Glucose (74-99) mg/dL Plasma Lactic Acid Ty 1.6 (0.7-2.0) mmol/L Calcium (8.4-10.2) mg/dL Phosphorus (2.5-4.5) mg/dL Magnesium (1.6-2.3) mg/dL Total Bilirubin (0.2-1.3) mg/dL AST (17-59) U/L ALT (4-49) U/L Alkaline Phosphatase (38-126) U/L Troponin I <0.012 (0.000-0.034) ng/mL NT-Pro-B Natriuret Pep pg/mL Total Protein (6.3-8.2) g/dL Albumin (3.5-5.0) g/dL TSH (0.465-4.680) mIU/L - Radiology Data Radiology results: pending (Chest x-rays pending) Critical Care Time Critical Care Time: Yes Total Critical Care Time: 31 Disposition Clinical Impression: History of ASCVD, Tachycardia, Palpitations, Atrial fibrillation with RVR, Chest pain, Rapid atrial fibrillation Disposition: ADMITTED IP TO THIS HOSP Condition: Stable Is patient prescribed a controlled substance at d/c from ED?: No Time of Disposition: 23:00
[2023-05-01 21:20] LABS: Basophils % (A) 0 %; Eosinophils # (A) 0.2 k/uL (0-0.7); Eosinophils % (A) 2 %; HCT 41.6 % (39.0-53.0); HGB 14.2 gm/dL (13.0-17.5); Lymphocytes # (A) 1.8 k/uL (1.0-4.8); Lymphocytes % (A) 19 %; MCH 30.1 pg (25.0-35.0); MCHC 34.2 g/dL (31.0-37.0); MCV 88.2 fL (80.0-100.0); Mean Platelet Volume 7.7; Monocytes # (A) 0.7 k/uL (0-1.0); Monocytes % (A) 7 %; Neutrophils # (A) 6.7 k/uL (1.3-7.7); Neutrophils % (A) 70 %; Platelet Count 263 k/uL (150-450); RBC 4.71 m/uL (4.30-5.90); RDW 12.4 % (11.5-15.5); WBC 9.5 k/uL (3.8-10.6)
[2023-05-01 21:26] LABS: ALT 33 U/L (4-49); AST 29 U/L (17-59); African American GFR (CKD) >90 (>60 ml/min/1.73 sqM); Albumin 4.1 g/dL (3.5-5.0); Alkaline Phosphatase 108 U/L (38-126); Anion Gap 10 mmol/L; Blood Urea Nitrogen 21 mg/dL (9-20); Calcium 8.8 mg/dL (8.4-10.2); Carbon Dioxide 23 mmol/L (22-30); Chloride 104 mmol/L (98-107); Glucose 117 mg/dL (74-99); INR 1.1 (<1.2); Magnesium 1.7 mg/dL (1.6-2.3); Non-African American GFR(CKD) >90 (>60 ml/min/1.73 sqM); Partial Thromboplastin Time 27.6 sec (22.0-30.0); Phosphorus 2.7 mg/dL (2.5-4.5); Potassium 4.2 mmol/L (3.5-5.1); Prothrombin Time 11.5 sec (9.0-12.0); Sodium 137 mmol/L (137-145); Total Bilirubin 0.9 mg/dL (0.2-1.3)
[2023-05-01 21:35] LABS: NT-Pro-B-Type Natriuretic Pept 301 pg/mL
[2023-05-01] MEDS ORDERED: METOPROLOL TARTRATE 5 MG/5 ML VIAL IVP STA ×2 (21:47→23:18)
[2023-05-01] MEDS ORDERED: SODIUM CHLORIDE 0.9% 500 ML 500 ML IV ONE (22:30)
[2023-05-01] MEDS ORDERED: LORazepam 0.5 MG TAB PO PRN (23:17)
[2023-05-01] MEDS ORDERED: ONDANSETRON 4 MG/2 ML VIAL IVP PRN (23:17)
[2023-05-01] MEDS ORDERED: NALOXONE 0.4 MG/ML 1 ML VIAL IV PRN (23:17)
[2023-05-01] MEDS ORDERED: MORPHINE SULFATE 4 MG/ML SYRINGE IV PRN (23:17)
[2023-05-02 00:14] VITALS: RESP 16
[2023-05-02] MEDS ORDERED: NITROGLYCERIN SL TABS 0.4 MG TAB SUBLINGUAL PRN (00:14)
--- NOTE | 2023-05-02 00:19 | P.HPIM ---
History of Present Illness H&P Date: 05/01/23 Patient is a 68-year-old male with a PMH of CAD status post multiple stents, A. fib on Eliquis, and hypertension who presents to the emergency room with complaints of chest discomfort and palpitations. Patient reports that he was in his usual state of health until about 5 PM earlier today when he suddenly developed a fluttering heavy discomfort in his chest with radiation to bilateral arms and associated dizziness. The patient reports that she checked his pulse and noted that it was very erratic and fast. He immediately activated EMS who upon found the patient to be made with RVR. At time of interview, the patient reports that he feels significantly better. He reports that his palpitations and chest discomfort have essentially resolved. He denied experiencing nausea, vomiting, fever, chills, cough. The patient was last admitted for A. fib in 2020. He reports following with Dr. Lobo who was planning on performing an ablation sometime in the future as per the patient. He reports compliance with all his medications at home including metoprolol. Upon arrival in the emergency room, the patient had a pulse of 153, BP 128 of 117, and SpO2 99% on room air with temperature 99.0F. Laboratory evaluation revealed a troponin less than 0.012, TSH 6.7, glucose 117, and BUN 21. EKG in the emergency room revealed A. fib at 94 bpm with left axis deviation and a left bundle branch block as reviewed by me. ED documentation reviewed and case discussed with ED provider. Review of systems: Pertinent positives and negatives as discussed in HPI, a complete review of systems was performed and all other systems are negative. Physical examination: Vital signs reviewed General: non toxic, no distress, appears at stated age, normal weight Derm: no unusual rashes/lesions, warm Head: atraumatic, normocephalic, symmetric Eyes: EOMI, no lid lag, anicteric sclera, pupils equal round reactive to light ENT: Nose and ears atraumatic Neck: No cervical lymphadenopathy, trachea midline, supple Mouth: no lip lesion, mucus membranes moist Cardiovascular: Irregularly irregular, no murmur, positive dorsalis pedis pulse bilateral, no edema Lungs: CTA bilateral, no rhonchi, no rales, no accessory muscle use Abdominal: soft, nontender to palpation, no guarding Ext: muscle strength 5 out of 5 in all 4 extremities grossly, no gross muscle atrophy, no contractures, Neuro: CN II-XI grossly intact, no gross focal neuro deficits Psych: Alert, oriented, appropriate affect Assessment: A. fib with RVR Elevated TSH Chronic conditions: CAD, hypertension Imaging: EKG in the emergency room revealed A. fib at 94 bpm with left axis deviation and a left bundle branch block as reviewed by me. Data Review: Upon arrival in the emergency room, the patient had a pulse of 153, BP 128 of 117, and SpO2 99% on room air with temperature 99.0F. Laboratory evaluation revealed a troponin less than 0.012, TSH 6.7, glucose 117, and BUN 21. Plan: Continue Cardizem infusion Start the patient on increased home Lopressor dose of 50 mg by mouth twice a day Cardiology consulted Cardiac monitoring Obtain T3 and T4 levels Continue the remaining home medications including lisinopril 5 mg by mouth daily, aspirin 81 mg by mouth daily, Lipitor 80 mg by mouth daily at bedtime, and Eliquis 5 mg po bid DVT prophylaxis: Eliquis The patient is admitted with an anticipated greater than 2 midnight stay for evaluation of Afib CODE STATUS: Full Code Discussed with: Patient Anticipated discharge place: Home Past Medical History Past Medical History: Coronary Artery Disease (CAD), Hyperlipidemia, Hypertension, Myocardial Infarction ([place]) Additional Past Medical History / Comment(s): covid jul 2021 Last Myocardial Infarction Date:: 12/04/17 History of Any Multi-Drug Resistant Organisms: None Reported Past Surgical History: Heart Catheterization With Stent, Orthopedic Surgery Additional Past Surgical History / Comment(s): R shoulder, right foot bunion removal Past Anesthesia/Blood Transfusion Reactions: No Reported Reaction Date of Last Stent Placement:: 12/04/17 Past Psychological History: No Psychological Hx Reported Smoking Status: Current every day smoker Past Alcohol Use History: None Reported Past Drug Use History: None Reported - Past Family History Father Family Medical History: Myocardial Infarction ([place]) Additional Family Medical History / Comment(s): smoker, lung [place] Mother Family Medical History: Hypertension Medications and Allergies Home Medications Medication Instructions Recorded Confirmed Type Atorvastatin [Lipitor] 80 mg PO HS #30 tab 02/07/20 05/01/23 Rx Nitroglycerin Sl Tabs [Nitrostat] 0.4 mg SUBLINGUAL Q5M PRN #25 tab 02/07/20 05/01/23 Rx lisinopriL [Prinivil] 5 mg PO DAILY 30 Days #30 tab 02/07/20 05/01/23 Rx Cholecalciferol [Vitamin D3 (25 25 mcg PO BID 07/18/21 05/01/23 History Mcg = 1000 Iu)] Apixaban [Eliquis] 5 mg PO BID 30 Days #60 tab 07/24/21 05/01/23 Rx Aspirin 81 mg PO DAILY 30 Days #30 tab 07/24/21 05/01/23 Rx Metoprolol Tartrate 25 mg PO BID 30 Days #60 tab 07/24/21 05/01/23 Rx Acetaminophen Tab [Tylenol Tab] 500 mg PO HS 05/01/23 05/01/23 History Acetaminophen Tab [Tylenol] 1,000 mg PO DAILY 05/01/23 05/01/23 History Allergies Allergy/AdvReac Type Severity Reaction Status Date / Time No Known Allergies Allergy Verified 05/01/23 23:06 Physical Exam Vitals: Vital Signs Temp Pulse Resp BP Pulse Ox 05/01/23 22:31 100 18 105/75 98 05/01/23 22:21 133 H 18 101/70 98 05/01/23 22:00 104 H 18 98/73 99 05/01/23 21:45 121 H 18 105/82 98 05/01/23 21:34 124 H 20 108/73 98 05/01/23 21:20 101/83 05/01/23 21:05 174 H 18 97 05/01/23 20:38 99.0 F 153 H 18 128/117 99 Intake and Output 05/01/23 05/01/23 05/02/23 14:59 22:59 06:59 Intake Total 3.083 Balance 3.083 Intake: Intake, IV Titration 3.083 Amount Diltiazem 125 mg In 3.083 Sodium Chloride 0.9% 100 ml @ 5 MG/HR 5 mls/hr IV .Q24H [facility] Rx#:[id number] Other: Weight 72.575 kg Results CBC & Chem 7: 05/01/23 21:06 05/01/23 21:06 Labs: Abnormal Lab Results - Last 24 Hours (Table) 05/01/23 Range/Units 21:06 BUN 21 H (9-20) mg/dL Glucose 117 H (74-99) mg/dL TSH 6.700 H (0.465-4.680) mIU/L
[2023-05-02] MEDS: METOPROLOL TARTRATE 50 MG TAB PO SCH ×2 (01:03→08:30)
[2023-05-02] MEDS: APIXABAN 5 MG TAB PO SCH ×2 (01:03→08:30)
[2023-05-02 04:43] LABS: Basophils % (A) 1 %; Eosinophils # (A) 0.1 k/uL (0-0.7); Eosinophils % (A) 2 %; HCT 36.1 % (39.0-53.0); HGB 12.5 gm/dL (13.0-17.5); Lymphocytes # (A) 1.3 k/uL (1.0-4.8); Lymphocytes % (A) 22 %; MCH 30.8 pg (25.0-35.0); MCHC 34.6 g/dL (31.0-37.0); MCV 89.2 fL (80.0-100.0); Mean Platelet Volume 8.1; Monocytes # (A) 0.6 k/uL (0-1.0); Monocytes % (A) 10 %; Neutrophils # (A) 3.7 k/uL (1.3-7.7); Neutrophils % (A) 63 %; Platelet Count 213 k/uL (150-450); RBC 4.05 m/uL (4.30-5.90); RDW 12.6 % (11.5-15.5); WBC 5.8 k/uL (3.8-10.6)
[2023-05-02 04:55] LABS: ALT 28 U/L (4-49); AST 22 U/L (17-59); African American GFR (CKD) >90 (>60 ml/min/1.73 sqM); Albumin 3.3 g/dL (3.5-5.0); Alkaline Phosphatase 76 U/L (38-126); Anion Gap 5 mmol/L; Blood Urea Nitrogen 20 mg/dL (9-20); Calcium 8.5 mg/dL (8.4-10.2); Carbon Dioxide 30 mmol/L (22-30); Chloride 105 mmol/L (98-107); Glucose 96 mg/dL (74-99); Magnesium 1.9 mg/dL (1.6-2.3); Non-African American GFR(CKD) >90 (>60 ml/min/1.73 sqM); Phosphorus 3.4 mg/dL (2.5-4.5); Potassium 4.4 mmol/L (3.5-5.1); Sodium 140 mmol/L (137-145); Total Protein 5.7 g/dL (6.3-8.2)
[2023-05-02 05:10] LABS: T4, Free (Free Thyroxine) 1.06 ng/dL (0.78-2.19)
[2023-05-02] MEDS ORDERED: lisinopriL 5 MG TAB PO SCH (09:00)
[2023-05-02] MEDS ORDERED: ASPIRIN 81 MG PO SCH (09:00)
--- NOTE | 2023-05-02 11:29 | P.DS ---
Providers Date of admission: 05/01/23 23:18 Expected date of discharge: 05/02/23 Attending physician: Tracy Bonner MD Consults: 05/01/23 23:17 Consult Physician Routine Consulting Provider: Karely Lobo Consult Reason/Comments: chf Do you want consulting provider notified?: Yes Primary care physician: [facility] Course: Discharge Diagnosis: Atrial fibrillation with RVR Elevated TSH coronary artery disease Hypertension Hospital Course: 68-year-old male with a PMH of CAD status post multiple stents, A. fib on Eliquis, and hypertension who presents to the emergency room with complaints of chest discomfort and palpitations. Upon arrival in the emergency room, the patient had a pulse of 153, BP 128 of 117, and SpO2 99% on room air with temperature 99.0F. Laboratory evaluation revealed a troponin less than 0.012, TSH 6.7, glucose 117, and BUN 21. EKG in the emergency room revealed A. fib at 94 bpm with left axis deviation and a left bundle branch block. Patient was seen by cardiology. He was initially on Cardizem drip, transitioned to prior dose of oral metoprolol. Now rate controlled. Chest discomfort and palpitations resolved. ACS ruled out. He will likely need outpatient ablation. TSH mildly elevated, however does not have any signs or symptoms of hypothyroidism. Repeat TSH in 4-6 weeks. Patient seen and examined at bedside. Vital signs reviewed and stable. General: nontoxic, no distress, appears at stated age Derm: warm, dry Head: atraumatic, normocephalic, symmetric Eyes: EOMI, no lid lag, anicteric sclera Mouth: no lip lesion, mucus membranes moist Cardiovascular: S1S2 reg, no murmur Lungs: CTA bilateral, no rhonchi, no rales , no accessory muscle use Abdominal: soft, nontender to palpation, no guarding, no appreciable organomegaly Ext: no gross muscle atrophy, no edema, no contractures Neuro: CN II-XI grossly intact, no focal neuro deficits Psych: Alert, oriented, appropriate affect A total of 36 minutes of time were spent preparing this complex discharge summary. Patient was discharged on 05/02/23 at 11:22. Patient Condition at Discharge: Stable Plan - Discharge Summary New Discharge Prescriptions: New Metoprolol Tartrate [Lopressor] 50 mg PO BID #60 tab Continue Atorvastatin [Lipitor] 80 mg PO HS #30 tab Nitroglycerin Sl Tabs [Nitrostat] 0.4 mg SUBLINGUAL Q5M PRN #25 tab PRN Reason: Chest Pain lisinopriL [Prinivil] 5 mg PO DAILY 30 Days #30 tab Acetaminophen Tab [Tylenol] 1,000 mg PO DAILY Cholecalciferol [Vitamin D3 (25 Mcg = 1000 Iu)] 25 mcg PO BID Aspirin 81 mg PO DAILY 30 Days #30 tab Apixaban [Eliquis] 5 mg PO BID 30 Days #60 tab Acetaminophen Tab [Tylenol] 500 mg PO HS Discontinued Metoprolol Tartrate 25 mg PO BID 30 Days #60 tab Discharge Medication List Atorvastatin [Lipitor] 80 mg PO HS #30 tab 02/07/20 [Rx] Nitroglycerin Sl Tabs [Nitrostat] 0.4 mg SUBLINGUAL Q5M PRN #25 tab 02/07/20 [Rx] lisinopriL [Prinivil] 5 mg PO DAILY 30 Days #30 tab 02/07/20 [Rx] Cholecalciferol [Vitamin D3 (25 Mcg = 1000 Iu)] 25 mcg PO BID 07/18/21 [History] Apixaban [Eliquis] 5 mg PO BID 30 Days #60 tab 07/24/21 [Rx] Aspirin 81 mg PO DAILY 30 Days #30 tab 07/24/21 [Rx] Acetaminophen Tab [Tylenol] 1,000 mg PO DAILY 05/01/23 [History] Acetaminophen Tab [Tylenol] 500 mg PO HS 05/01/23 [History] Metoprolol Tartrate [Lopressor] 50 mg PO BID #60 tab 05/02/23 [Rx] Follow up Appointment(s)/Referral(s): Karely Lobo MD [STAFF PHYSICIAN] - 1 Week [facility] [Primary Care Provider] - 1-2 days Patient Instructions/Handouts: A-fib (Atrial Fibrillation) (DC) Activity/Diet/Wound Care/Special Instructions: Please see cardiology. Discharge Disposition: HOME SELF-CARE
--- NOTE | 2023-05-02 11:39 | P.CRDCN ---
History of Present Illness Consult date: 05/02/23 History of present illness: HISTORY OF PRESENTING ILLNESS This is a 68-year-old male patient of Dr. Lobo with a history of paroxysmal atrial fibrillation, CAD status post PCI proxmial RCA, proximal LAD, mid RCA, proximal circumflex, prior CT, ischemic cardiomyopathy, hypertension, dyslipidemia, peripheral vascular disease, chronic nicotine dependence. We have been asked to evaluate for CHF. Patient states that sometimes she will he wakes up and has a sudden onset of his heart racing. This can happen other times as well. He does have some shortness of breath with that. He had episode yesterday and felt the same and then thought he was going to pass out. He could feel that his heart was erratic. Telemetry revealed heart rate up to the 170. Patient presented in atrial fibrillation with RVR and converted to sinus rhythm approximate 2 AM. Patient states that he feels 98% better today. EKG atrial fibrillation at 94 WBC 5.8, hemoglobin 12.5, platelet count 213. Electrolytes and renal function are normal. Liver function tests are normal. Troponin 3 negative. TSH 6.7 with normal free T4 1 0.06. ProBNP 301. Current home cardiac medications include eliquis 5 mg twice daily, aspirin 81 mg daily, atorvastatin 80 mg at bedtime, lisinopril 5 mg daily, Lopressor 50 mg twice daily, Nitrostat as needed. PCI 07/2021 with stenting of the distal mid RCA, marginal branch and proximal left circumflex. Echocardiogram 07/2021 revealed EF of 60-65%, mild mitral regurgitation. REVIEW OF SYSTEMS At the time of my exam: CONSTITUTIONAL: Denies fever or chills. CARDIOVASCULAR: Denies shortness of breath, No palpitations Denies chest pain, orthopnea, PND RESPIRATORY: Denies cough. GASTROINTESTINAL: Denies abdominal pain, diarrhea, constipation, nausea or vomiting. NEUROLOGIC: Denies numbness, tingling, headacbe or weakness. ENDOCRINE: Denies fatigue, weight change, polydipsia or polyurina. GENITOURINARY: Denies burning, hematuria or urgency with micturation. HEMATOLOGIC: Denies history of anemia or bleeding. PHYSICAL EXAMINATION Blood pressure 112/75, heart rate 60, afebrile, maintaining oxygen saturations on room air CONSTITUTIONAL: No apparent distress. HEENT: Head is normocephalic. Pupils are equal, round. Sclerae anicteric. Mucous membranes of the mouth are moist. No JVD. No carotid bruit. CHEST EXAMINATION: Lungs are clear to auscultation. No chest wall tenderness is noted on palpation or with deep breathing. HEART EXAMINATION: Regular rate and rhythm. S1, S2 heard. No murmurs, gallops or rub. ABDOMEN: Soft, nontender. Positive bowel sounds. EXTREMITIES: 2+ peripheral pulses, no lower extremity edema and no calf tenderness. NEUROLOGIC EXAMINATION: Patient is awake, alert and oriented x3. ASSESSMENT: Paroxysmal atrial fibrillation with RVR, now maintaining sinus mechanism Coronary artery disease status post PCI proxmial RCA, proximal LAD, mid RCA, proximal circumflex Prior CT 2018 Ischemic cardiomyopathy number recovered Hypertension Dyslipidemia Peripheral vascular disease Chronic nicotine dependence Recent right shoulder rotator cuff repair on 07/11/21 PLAN: Continue current home cardiac medications Patient has converted to sinus rhythm. He is cleared for discharge and a follow-up in the office with Dr. Lobo in one week. Nurse practitioner note has been reviewed, I agree with the documented findings and plan of care. Patient was seen and examined. Past Medical History Past Medical History: Coronary Artery Disease (CAD), Hyperlipidemia, Hypertension, Myocardial Infarction (CT) Additional Past Medical History / Comment(s): covid jul 2021 Last Myocardial Infarction Date:: 12/04/17 History of Any Multi-Drug Resistant Organisms: None Reported Past Surgical History: Heart Catheterization With Stent, Orthopedic Surgery Additional Past Surgical History / Comment(s): R shoulder, right foot bunion removal Past Anesthesia/Blood Transfusion Reactions: No Reported Reaction Date of Last Stent Placement:: 12/04/17 Past Psychological History: No Psychological Hx Reported Smoking Status: Current every day smoker Past Alcohol Use History: None Reported Past Drug Use History: None Reported - Past Family History Father Family Medical History: Myocardial Infarction (CT) Additional Family Medical History / Comment(s): smoker, lung CA Mother Family Medical History: Hypertension Medications and Allergies Home Medications Medication Instructions Recorded Confirmed Type Atorvastatin [Lipitor] 80 mg PO HS #30 tab 02/07/20 05/01/23 Rx Nitroglycerin Sl Tabs [Nitrostat] 0.4 mg SUBLINGUAL Q5M PRN #25 tab 02/07/20 05/01/23 Rx lisinopriL [Prinivil] 5 mg PO DAILY 30 Days #30 tab 02/07/20 05/01/23 Rx Cholecalciferol [Vitamin D3 (25 25 mcg PO BID 07/18/21 05/01/23 History Mcg = 1000 Iu)] Apixaban [Eliquis] 5 mg PO BID 30 Days #60 tab 07/24/21 05/01/23 Rx Aspirin 81 mg PO DAILY 30 Days #30 tab 07/24/21 05/01/23 Rx Acetaminophen Tab [Tylenol] 1,000 mg PO DAILY 05/01/23 05/01/23 History Acetaminophen Tab [Tylenol] 500 mg PO HS 05/01/23 05/01/23 History Metoprolol Tartrate [Lopressor] 50 mg PO BID #60 tab 05/02/23 Rx Allergies Allergy/AdvReac Type Severity Reaction Status Date / Time No Known Allergies Allergy Verified 05/01/23 23:06 Physical Exam Vitals: Vital Signs Temp Pulse Pulse Resp BP BP Pulse Ox 05/02/23 04:00 97.9 F 60 16 103/58 97 05/02/23 00:31 98.1 F 101 H 16 137/88 94 L 05/02/23 00:10 118 H 16 93/60 98 05/02/23 00:05 116 H 17 111/43 98 05/02/23 00:00 137 H 16 130/120 98 05/01/23 22:31 100 18 105/75 98 05/01/23 22:21 133 H 18 101/70 98 05/01/23 22:00 104 H 18 98/73 99 05/01/23 21:45 121 H 18 105/82 98 05/01/23 21:34 124 H 20 108/73 98 05/01/23 21:20 101/83 05/01/23 21:05 174 H 18 97 05/01/23 20:38 99.0 F 153 H 18 128/117 99 Intake and Output 05/01/23 05/02/23 05/02/23 22:59 06:59 14:59 Intake Total 3.083 Balance 3.083 Intake: Intake, IV Titration 3.083 Amount Diltiazem 125 mg In 3.083 Sodium Chloride 0.9% 100 ml @ 5 MG/HR 5 mls/hr IV .Q24H [facility] Rx#:[id number] Other: Voiding Method Toilet Weight 72.575 kg 72.575 kg Results 05/02/23 04:22 05/02/23 04:22 Cardiac Enzymes 05/01/23 05/01/23 05/01/23 Range/Units 21:06 21:06 23:49 AST 29 (17-59) U/L Troponin I <0.012 0.016 (0.000-0.034) ng/mL 05/02/23 05/02/23 Range/Units 04:22 04:22 AST 22 (17-59) U/L Troponin I 0.023 (0.000-0.034) ng/mL Coagulation 05/01/23 Range/Units 21:06 PT 11.5 (9.0-12.0) sec APTT 27.6 (22.0-30.0) sec CBC 05/01/23 05/02/23 Range/Units 21:06 04:22 WBC 9.5 5.8 (3.8-10.6) k/uL RBC 4.71 4.05 L (4.30-5.90) m/uL Hgb 14.2 12.5 L (13.0-17.5) gm/dL Hct 41.6 36.1 L (39.0-53.0) % Plt Count 263 213 (150-450) k/uL Comprehensive Metabolic Panel 05/01/23 05/02/23 Range/Units 21:06 04:22 Sodium 137 140 (137-145) mmol/L Potassium 4.2 4.4 (3.5-5.1) mmol/L Chloride 104 105 (98-107) mmol/L Carbon Dioxide 23 30 (22-30) mmol/L BUN 21 H 20 (9-20) mg/dL Creatinine 0.84 0.85 (0.66-1.25) mg/dL Glucose 117 H 96 (74-99) mg/dL Calcium 8.8 8.5 (8.4-10.2) mg/dL AST 29 22 (17-59) U/L ALT 33 28 (4-49) U/L Alkaline Phosphatase 108 76 (38-126) U/L Total Protein 7.0 5.7 L (6.3-8.2) g/dL Albumin 4.1 3.3 L (3.5-5.0) g/dL Current Medications Generic Name Dose Route Start Last Admin Trade Name Freq PRN Reason Stop Dose Admin Apixaban 5 mg 05/02/23 01:00 05/02/23 01:03 Apixaban 5 Mg Tab PO 5 mg BID [facility] Administration Protocol Aspirin 81 mg 05/02/23 09:00 Aspirin 81 Mg PO DAILY [facility] Atorvastatin Calcium 80 mg 05/02/23 21:00 Atorvastatin 80 Mg Tab PO HS [facility] Diltiazem HCl 125 mg/ Sodium 125 mls @ 5 mls/hr 05/01/23 21:00 05/01/23 21:40 Chloride IV 0 mg/hr .Q24H [facility] 0 mls/hr Infusion 5 MG/HR Lisinopril 5 mg 05/02/23 09:00 Lisinopril 5 Mg Tab PO DAILY [facility] Lorazepam 0.5 mg 05/01/23 23:17 Lorazepam 0.5 Mg Tab PO Q6HR PRN Anxiety Metoprolol Tartrate 50 mg 05/02/23 01:00 05/02/23 01:03 Metoprolol Tartrate 50 Mg Tab PO 50 mg BID [facility] Administration Morphine Sulfate 4 mg 05/01/23 23:17 Morphine Sulfate 4 Mg/Ml Syringe IV Q4HR PRN Severe Pain (Scale 7 to 10) Naloxone HCl 0.2 mg 05/01/23 23:17 Naloxone 0.4 Mg/Ml 1 Ml Vial IV Q2M PRN Opioid Reversal Nitroglycerin 0.4 mg 05/02/23 00:14 Nitroglycerin Sl Tabs 0.4 Mg Tab SUBLINGUAL Q5M PRN Chest Pain Ondansetron HCl 4 mg 05/01/23 23:17 Ondansetron 4 Mg/2 Ml Vial IVP Q8HR PRN Nausea And Vomiting Intake and Output 05/01/23 05/02/23 05/02/23 22:59 06:59 14:59 Intake Total 3.083 Balance 3.083 Intake: Intake, IV Titration 3.083 Amount Diltiazem 125 mg In 3.083 Sodium Chloride 0.9% 100 ml @ 5 MG/HR 5 mls/hr IV .Q24H [facility] Rx#:[id number] Other: Voiding Method Toilet Weight 72.575 kg 72.575 kg 05/02/23 04:22 05/02/23 04:22
[2023-05-02 11:52] VITALS: BP 149/89; PULSE 55; TEMP 98.2
[2023-05-02] MEDS ORDERED: ATORVASTATIN 80 MG TAB PO SCH (21:00)
== END 2023-05-02 12:29 | disposition home or self-care (01) | DRG 310 ==
LOC: EC 20:36 → 3SCARD 23:18
PROVIDERS: ADMIT Internal Medicine; ATTEND Internal Medicine
DX: I48.0 Paroxysmal atrial fibrillation (principal); R94.6 Abnormal results of thyroid function studies; I10 Essential (primary) hypertension; I25.10 Atherosclerotic heart disease of native coronary artery without angina pectoris; E78.5 Hyperlipidemia, unspecified; I25.2 Old myocardial infarction; F41.9 Anxiety disorder, unspecified; F17.210 Nicotine dependence, cigarettes, uncomplicated; I11.0 Hypertensive heart disease with heart failure; I34.0 Nonrheumatic mitral (valve) insufficiency; I25.5 Ischemic cardiomyopathy; I44.7 Left bundle-branch block, unspecified; I50.9 Heart failure, unspecified; I73.9 Peripheral vascular disease, unspecified; Z79.01 Long term (current) use of anticoagulants; Z79.82 Long term (current) use of aspirin; Z79.899 Other long term (current) drug therapy; Z95.5 Presence of coronary angioplasty implant and graft; Z82.49 Family history of ischemic heart disease and other diseases of the circulatory system; Z86.16 Personal history of COVID-19
CPT/HCPCS: 36415; 80053; 83605; 83735; 83880; 84100; 84439; 84443; 84480; 84484; 85025; 85610; 85730; 93005; 96361; 96365; 96375; 96376; 99291

== ENCOUNTER 2023-10-25 08:39 | Inpatient (IN) | payer OTHER ==
[2023-10-25] MEDS ORDERED: MORPHINE SULFATE 4 MG/ML SYRINGE IV STA (08:50)
--- NOTE | 2023-10-25 09:01 | ED ---
Chest Pain HPI - General Chief Complaint: Chest Pain Stated Complaint: CHEST PAIN Time Seen by Provider: 10/25/23 08:45 Source: EMS Mode of arrival: EMS Limitations: no limitations - History of Present Illness Initial Comments: 68-year-old male with past medical history of AL, cardiac arrest in 2019, A. fib on anticoagulation who presents to the emergency department reporting chest pain. States that he has pain in the central portion of his chest which is described as a pressure sensation. It radiates to his bilateral shoulders. Started around 2:00 this morning and has been persistent. He states the pain is 5 out of 10. He did take a full aspirin and Tylenol at home. He thought that he was in A. fib and therefore he took an additional 12.5 mg of his metoprolol. EMS who transported the patient's the hospital reported that he had 5 seconds of V. tach which spontaneously converted. Patient follows a Dr. Lobo. He has been taking all his medications as directed without missing doses. No other alleviating, precipitating or modifying factors - Related Data Home Medications Medication Instructions Recorded Confirmed Cholecalciferol [Vitamin D3 (25 75 mcg PO DAILY 07/18/21 10/25/23 Mcg = 1000 Iu)] Acetaminophen Tab [Tylenol] 1,000 mg PO Q6H PRN 05/01/23 10/25/23 Metoprolol Tartrate [Lopressor] 12.5 mg PO BID 10/25/23 10/25/23 Previous Rx's Medication Instructions Recorded Atorvastatin [Lipitor] 80 mg PO HS #30 tab 02/07/20 Nitroglycerin Sl Tabs [Nitrostat] 0.4 mg SUBLINGUAL Q5M PRN #25 tab 02/07/20 Apixaban [Eliquis] 5 mg PO BID 30 Days #60 tab 07/24/21 Aspirin 81 mg PO DAILY 30 Days #30 tab 07/24/21 Amiodarone [Cordarone] 400 mg PO BID #100 tab 10/29/23 lisinopriL [Zestril] 10 mg PO DAILY #90 tab 10/29/23 Allergies Allergy/AdvReac Type Severity Reaction Status Date / Time No Known Allergies Allergy Verified 10/25/23 13:35 Review of Systems ROS Statement: Those systems with pertinent positive or pertinent negative responses have been documented in the HPI. ROS Other: All systems not noted in ROS Statement are negative. Past Medical History Past Medical History: Atrial Fibrillation, Coronary Artery Disease (CAD), Hyperlipidemia, Hypertension, Myocardial Infarction (AL) Additional Past Medical History / Comment(s): covid jul 2021, Cardiac arrest 2019, Last Myocardial Infarction Date:: 12/04/17 History of Any Multi-Drug Resistant Organisms: None Reported Past Surgical History: Heart Catheterization With Stent, Orthopedic Surgery Additional Past Surgical History / Comment(s): R shoulder, right foot bunion removal Past Anesthesia/Blood Transfusion Reactions: No Reported Reaction Date of Last Stent Placement:: 12/04/17 Past Psychological History: No Psychological Hx Reported Smoking Status: Current every day smoker Past Alcohol Use History: None Reported Past Drug Use History: None Reported - Past Family History Father Family Medical History: Myocardial Infarction (AL) Additional Family Medical History / Comment(s): smoker, lung CA Mother Family Medical History: No Reported History General Exam Limitations: no limitations General appearance: alert, in no apparent distress Head exam: Present: atraumatic, normocephalic, normal inspection Eye exam: Present: normal appearance, PERRL, EOMI. Absent: scleral icterus, conjunctival injection, periorbital swelling ENT exam: Present: normal exam, mucous membranes moist Neck exam: Present: normal inspection. Absent: tenderness, meningismus, lymphadenopathy Respiratory exam: Present: normal lung sounds bilaterally. Absent: respiratory distress, wheezes, rales, rhonchi, stridor Cardiovascular Exam: Present: regular rate, normal rhythm, normal heart sounds. Absent: systolic murmur, diastolic murmur, rubs, gallop, clicks GI/Abdominal exam: Present: soft, normal bowel sounds. Absent: distended, tenderness, guarding, rebound, rigid Extremities exam: Present: normal inspection, full ROM, normal capillary refill. Absent: tenderness, pedal edema, joint swelling, calf tenderness Back exam: Present: normal inspection Neurological exam: Present: alert, oriented X3, CN II-XII intact Psychiatric exam: Present: normal affect, normal mood Skin exam: Present: warm, dry, intact, normal color. Absent: rash Course Vital Signs 10/25/23 10/25/23 10/25/23 08:42 08:44 08:46 Temperature 97.9 F Pulse Rate 81 74 Pulse Rate [ 75 Manager Billing ] Pulse Rate [ Pulse Oximetery ] Respiratory 18 18 Rate Blood Pressure 126/80 126/80 Blood Pressure [Left Arm] Blood Pressure [Right Arm] O2 Sat by Pulse 99 98 Oximetry 10/25/23 10/25/23 10/25/23 09:00 10:00 11:00 Temperature Pulse Rate 76 67 72 Pulse Rate [ Manager Billing ] Pulse Rate [ Pulse Oximetery ] Respiratory 16 16 18 Rate Blood Pressure 124/76 120/68 122/76 Blood Pressure [Left Arm] Blood Pressure [Right Arm] O2 Sat by Pulse 99 98 98 Oximetry 10/25/23 10/25/23 10/25/23 12:00 13:00 14:00 Temperature Pulse Rate 67 64 58 L Pulse Rate [ Manager Billing ] Pulse Rate [ Pulse Oximetery ] Respiratory 16 18 18 Rate Blood Pressure 123/80 120/67 126/80 Blood Pressure [Left Arm] Blood Pressure [Right Arm] O2 Sat by Pulse 94 L 98 97 Oximetry 10/25/23 10/25/23 10/25/23 15:00 16:00 17:00 Temperature Pulse Rate 58 L 60 60 Pulse Rate [ Manager Billing ] Pulse Rate [ Pulse Oximetery ] Respiratory 18 18 18 Rate Blood Pressure 126/74 122/74 123/6 Blood Pressure [Left Arm] Blood Pressure [Right Arm] O2 Sat by Pulse 95 96 95 Oximetry 10/25/23 10/25/23 10/25/23 20:54 22:07 22:23 Temperature 98.0 F Pulse Rate Pulse Rate [ 66 57 L Manager Billing ] Pulse Rate [ 53 L Pulse Oximetery ] Respiratory 16 16 Rate Blood Pressure Blood Pressure 115/74 128/71 [Left Arm] Blood Pressure 157/83 [Right Arm] O2 Sat by Pulse 93 L 98 Oximetry 10/26/23 10/26/23 03:30 07:15 Temperature 98.2 F 98.2 F Pulse Rate Pulse Rate [ Manager Billing ] Pulse Rate [ 52 L 52 L Pulse Oximetery ] Respiratory 16 16 Rate Blood Pressure Blood Pressure 124/76 125/79 [Left Arm] Blood Pressure [Right Arm] O2 Sat by Pulse 94 L 96 Oximetry Chest Pain MDM - MDM Was pt. sent in by a medical professional or institution (, PA, STOCKROOM SUPERVISOR, urgent care, hospital, or penitentiary...) When possible be specific @ -No Did you speak to anyone other than the patient for history (EMS, parent, family, police, friend...)? What history was obtained from this source @ -ems Did you review nursing and triage notes (agree or disagree)? Why? @ -I reviewed and agree with nursing and triage notes Were old charts reviewed (outside hosp., previous admission, EMS record, old EKG, old radiological studies, urgent care reports/EKG's, penitentiary records)? Report findings @ -I reviewed patient's heart cath from 2020 Differential Diagnosis (chest pain, altered mental status, abdominal pain women, abdominal pain men, vaginal bleeding, weakness, fever, dyspnea, syncope, headache, dizziness, GI bleed, back pain, seizure, CVA, palpatations, mental health, musculoskeletal)? @ -Differential Chest Pain: Stable Angina, Unstable Angina, STEMI, NSTEMI Aortic Dissection, Pneumothorax, Musculoskeletal, Esophageal Spasm GERD, Cholecystitis, Pancreatitis, Zoster, this is not meant to be an all-inclusive list. EKG interpreted by me (3pts min.). @ -Yes and demonstrates sinus rhythm with a rate of 67. OR 163. QRS 83. QTC of 405. No acute ST segment elevation or depression. Incomplete right bundle- branch block with left anterior fascicular block X-rays interpreted by me (1pt min.). @ -Yes and demonstrates no acute process CT interpreted by me (1pt min.). @ -None done U/S interpreted by me (1pt. min.). @ -None done What testing was considered but not performed or refused? (CT, X-rays, U/S, labs)? Why? @ -None What meds were considered but not given or refused? Why? @ -None Did you discuss the management of the patient with other professionals (professionals i.e. , PA, STOCKROOM SUPERVISOR, lab, RT, psych nurse, social and human services assistant, office clerk routine, teacher, disbursing officer, case folder)? Give summary @ -dr gagnon who accepts admission Was smoking cessation discussed for >3mins.? @ -No Was critical care preformed (if so, how long)? @ -No Were there social determinants of health that impacted care today? How? (Homelessness, low income, unemployed, alcoholism, drug addiction, transportation, low edu. Level, literacy, decrease access to med. care, correction, rehab)? @ -No Was there de-escalation of care discussed even if they declined (Discuss DNR or withdrawal of care, Hospice)? DNR status @ -No What co-morbidities impacted this encounter? (DM, HTN, Smoking, COPD, CAD, Cancer, CVA, ARF, Chemo, Hep., AIDS, mental health diagnosis, sleep apnea, morbid obesity)? @ -A-fib, cardiac arrest, coronary disease Was patient admitted / discharged? Hospital course, mention meds given and route, prescriptions, significant lab abnormalities, going to OR and other pertinent info. @ -Upon arrival patient was placed into room 18. Thorough history and physical exam was performed. IV access was established. Patient was given 4 of morphine for pain control. He remains on continuous pulse ox and cardiac monitoring. 12-lead EKG does not demonstrate any new changes. I do not appreciate any dysrhythmia. Laboratory studies are within normal limits. Chest x-ray demonstrates no acute thoracic process. Due to significant cardiac history with chest pain I recommended admission. We will evaluate the patient for possible V. tach that was experienced by EMS. Called and spoke with sound physician, dr gagnon. Patient admitted to the floor in stable condition Undiagnosed new problem with uncertain prognosis? @ -yes Drug Therapy requiring intensive monitoring for toxicity (Heparin, Nitro, Insulin, Cardizem)? @ -No Were any procedures done? @ -No Diagnosis/symptom? @ -Acute chest pain, possible vtach, history of cardiac arrest Acute, or Chronic, or Acute on Chronic? @ -acute Uncomplicated (without systemic symptoms) or Complicated (systemic symptoms)? @ -complicated Side effects of treatment? @ -No Exacerbation, Progression, or Severe Exacerbation? @ -No Poses a threat to life or bodily function? How? (Chest pain, [place], AL, pneumonia, PE, COPD, DKA, ARF, appy, cholecystitis, CVA, Diverticulitis, Homicidal, Suicidal, threat to staff... and all critical care pts) @ -Yes EMS is reporting to possible V. tach Disposition Clinical Impression: Chest pain Disposition: ADMITTED IP TO THIS HOSP Condition: Stable Is patient prescribed a controlled substance at d/c from ED?: No Time of Disposition: 10:50 Decision to Admit Reason: Admit from EC Decision Date: 10/25/23 Decision Time: 10:50
--- NOTE | 2023-10-25 09:23 | XR ---
EXAMINATION TYPE: XR chest 2V DATE OF EXAM: 10/25/2023 COMPARISON: 07/18/2021 INDICATION: Chest pain TECHNIQUE: Frontal and lateral views of the chest are obtained. FINDINGS: The heart size is normal. The pulmonary vasculature is normal. The lungs are clear. IMPRESSION: 1. No acute pulmonary process.
[2023-10-25 09:45] LABS: Basophils % (A) 1 %; Eosinophils # (A) 0.1 k/uL (0-0.7); Eosinophils % (A) 1 %; HCT 40.7 % (39.0-53.0); HGB 14.2 gm/dL (13.0-17.5); Lymphocytes # (A) 1.1 k/uL (1.0-4.8); Lymphocytes % (A) 18 %; MCH 30.4 pg (25.0-35.0); MCHC 34.8 g/dL (31.0-37.0); MCV 87.3 fL (80.0-100.0); Mean Platelet Volume 7.9; Monocytes # (A) 0.5 k/uL (0-1.0); Monocytes % (A) 9 %; Neutrophils # (A) 4.1 k/uL (1.3-7.7); Neutrophils % (A) 69 %; Platelet Count 247 k/uL (150-450); RBC 4.66 m/uL (4.30-5.90); RDW 12.3 % (11.5-15.5); WBC 5.9 k/uL (3.8-10.6)
[2023-10-25 09:55] LABS: Partial Thromboplastin Time 26.9 sec (22.0-30.0); Prothrombin Time 11.3 sec (10.0-12.5)
[2023-10-25 10:03] LABS: ALT 27 U/L (4-49); AST 28 U/L (17-59); African American GFR (CKD) >90 (>60 ml/min/1.73 sqM); Albumin 3.9 g/dL (3.5-5.0); Alkaline Phosphatase 89 U/L (38-126); Anion Gap 11 mmol/L; Blood Urea Nitrogen 19 mg/dL (9-20); Calcium 9.1 mg/dL (8.4-10.2); Carbon Dioxide 25 mmol/L (22-30); Chloride 102 mmol/L (98-107); Glucose 125 mg/dL (74-99); Magnesium 1.9 mg/dL (1.6-2.3); Non-African American GFR(CKD) >90 (>60 ml/min/1.73 sqM); Sodium 138 mmol/L (137-145); Total Bilirubin 0.9 mg/dL (0.2-1.3); Total Protein 6.7 g/dL (6.3-8.2)
[2023-10-25 10:05] LABS: Potassium 4.6 mmol/L (3.5-5.1)
[2023-10-25 10:10] LABS: NT-Pro-B-Type Natriuretic Pept 819 pg/mL
[2023-10-25] MEDS ORDERED: NALOXONE 0.4 MG/ML 1 ML VIAL IV PRN (10:51)
--- NOTE | 2023-10-25 12:26 | P.HPIM ---
History of Present Illness H&P Date: 10/25/23 History of Presenting Illness: Patient is a very pleasant 68-year-old male with a past medical history of CAD with history of previous cardiac arrest in 2019 and is currently status post stenting 8 per his reports, atrial fibrillation on anticoagulation with Eliquis, hypertension, hyperlipidemia, and nicotine dependence. Patient follows with [facility] with Dr. Lobo. He presented to the emergency department with a chief complaint of chest pain/pressure. Patient reports around midnight he felt some heaviness in his shoulders and into his neck, reports he took Tylenol and made back down but was awoken around 2 AM with similar pain/pressure felt in his chest up into his neck and bilateral shoulders similar to how he felt when he had his previous heart attack. Patient reports initially he thought maybe it was his atrial fibrillation so he took an extra dose of metoprolol along with a regular strength aspirin, but when that did not work he knew he had to call EMS for transport to the hospital. Per ED documentation EMS reports patient had 5 seconds of sustained V. tach captured on the monitor during transport. Upon arrival to the emergency department patient underwent full evaluation. Vital signs upon arrival show blood pressure 126/80, heart rate 81, respiratory rate 18, temp 97.9F, SpO2 of 99% on room air. EKG upon arrival showing normal sinus rhythm at 67 bpm with an incomplete right bundle branch block, no significant T-wave or ST abnormalities showing no signs of acute ischemia upon personal review and interpretation. Chest x-ray negative for acute cardiopulmonary process. Labs completed and reviewed. CBC, CMP, and coagulation profile were unremarkable. Initial troponin is 0.015. Patient admitted under our services with consultation to cardiology. Patient seen and fully evaluated at bedside. Patient currently reports pain to chest has resolved but continues to have the same pressure-like sensation throughout his shoulders and neck in which she reports is similar to his previous heart attack. He denies having any headache, lightheadedness, dizziness, shortness of breath, cough or congestion, nausea, vomiting, or experiencing any numbness/tingling/weakness/swelling in his extremities. Review of systems: Pertinent positives and negatives as discussed in HPI, a complete review of systems was performed and all other systems are negative. Physical exam: Vital signs reviewed and stable. General: Nontoxic, no distress and appears stated age. Derm: Skin warm and dry, normal coloration for ethnicity. Head: Atraumatic, normocephalic and symmetric. Eyes: EOMs intact, no lid lag, and anicteric sclera Mouth: no lip lesions, mucus membranes moist Cardiovascular: regular rate and rhythm with normal S1S2, no murmur, positive posterior tibial pulses bilaterally, and cap refill < 2 seconds. Lungs: Respirations even, regular, and unlabored on room air. Lungs CTA bilaterally, no rhonchi, no rales, no wheezing, and no accessory muscle usage. Abdominal: soft, nontender to palpation, no guarding, no appreciable organomegaly Ext: ROM intact. No gross muscle atrophy, no edema, no contractures Neuro: Speech clear, face symmetrical and CN II-XII grossly intact with no noted focal neuro deficits Psych: Alert and oriented to person, place, time, and situation. Appropriate and pleasant affect. Assessment and Plan of Care: Chest pain, rule out acute coronary event History of CAD status post stenting History of cardiac arrest Paroxysmal atrial fibrillation Hypertension Hyperlipidemia Nicotine dependence -Cardiology consulted, appreciate further recommendations -Telemetry monitoring -Trend troponins -Cardiac diet -Continue cardiac medication regimen with Eliquis 5 mg twice daily, aspirin 81 mg daily, atorvastatin 80 mg nightly, lisinopril 5 mg daily, and metoprolol 12.5 mg twice daily. -Echocardiogram completed 07/19/21 revealed an EF of 60-65%. Will defer to cardiology if they would like to repeat or have recent outpatient echocardiogram results available from their office. Data and imaging reviewed: As stated above in HPI The patient is admitted with an anticipated less than 2 midnight stay for evaluation of chest pain CODE STATUS: Full code DVT prophylaxis: Eliquis Anticipated discharge date: Clinical course to determine, likely 24-[address]: Home Patient was seen independently by Nurse Practitioner. This document was prepared using [employer] dictation software. Please allow for errors in svp digital sales food & cooking while rare they do occur. Aaron Major NP rendered care for this patient independently, reviewed the findings and plan as documented in the note above. I did not physically speak with or examine the patient on this date. Past Medical History Past Medical History: Atrial Fibrillation, Coronary Artery Disease (CAD), Hyperlipidemia, Hypertension, Myocardial Infarction ([place]) Additional Past Medical History / Comment(s): covid jul 2021, Cardiac arrest 2019, Last Myocardial Infarction Date:: 12/04/17 History of Any Multi-Drug Resistant Organisms: None Reported Past Surgical History: Heart Catheterization With Stent, Orthopedic Surgery Additional Past Surgical History / Comment(s): R shoulder, right foot bunion removal Past Anesthesia/Blood Transfusion Reactions: No Reported Reaction Date of Last Stent Placement:: 12/04/17 Past Psychological History: No Psychological Hx Reported Smoking Status: Current every day smoker Past Alcohol Use History: None Reported Past Drug Use History: None Reported - Past Family History Father Family Medical History: Myocardial Infarction ([place]) Additional Family Medical History / Comment(s): smoker, lung [place] Mother Family Medical History: No Reported History Medications and Allergies Home Medications Medication Instructions Recorded Confirmed Type Atorvastatin [Lipitor] 80 mg PO HS #30 tab 02/07/20 10/25/23 Rx Nitroglycerin Sl Tabs [Nitrostat] 0.4 mg SUBLINGUAL Q5M PRN #25 tab 02/07/20 10/25/23 Rx lisinopriL [Prinivil] 5 mg PO DAILY 30 Days #30 tab 02/07/20 10/25/23 Rx Cholecalciferol [Vitamin D3 (25 75 mcg PO DAILY 07/18/21 10/25/23 History Mcg = 1000 Iu)] Apixaban [Eliquis] 5 mg PO BID 30 Days #60 tab 07/24/21 10/25/23 Rx Aspirin 81 mg PO DAILY 30 Days #30 tab 07/24/21 10/25/23 Rx Acetaminophen Tab [Tylenol] 1,000 mg PO Q6H PRN 05/01/23 10/25/23 History Metoprolol Tartrate [Lopressor] 12.5 mg PO BID 10/25/23 10/25/23 History Allergies Allergy/AdvReac Type Severity Reaction Status Date / Time No Known Allergies Allergy Verified 10/25/23 13:35 Physical Exam Vitals: Vital Signs Temp Pulse Pulse Resp BP Pulse Ox 10/25/23 12:00 67 16 123/80 94 L 10/25/23 11:00 72 18 122/76 98 10/25/23 10:00 67 16 120/68 98 10/25/23 09:00 76 16 124/76 99 10/25/23 08:46 75 10/25/23 08:44 74 18 126/80 98 10/25/23 08:42 97.9 F 81 18 126/80 99 Intake and Output 10/24/23 10/25/23 10/25/23 22:59 06:59 14:59 Other: Weight 72.575 kg Results CBC & Chem 7: 10/25/23 09:08 10/25/23 09:08 Labs: Abnormal Lab Results - Last 24 Hours (Table) 10/25/23 Range/Units 09:08 Glucose 125 H (74-99) mg/dL
[2023-10-25] MEDS: lisinopriL 5 MG TAB PO SCH (12:45)
[2023-10-25] MEDS ORDERED: METOPROLOL TARTRATE 50 MG TAB PO SCH (12:45)
[2023-10-25] MEDS: NICOTINE 21MG/24HR PATCH TRANSDERM SCH (16:10)
[2023-10-25] MEDS: MORPHINE SULFATE 4 MG/ML SYRINGE IV PRN (20:53)
[2023-10-25] MEDS: ATORVASTATIN 80 MG TAB PO SCH (20:53)
[2023-10-25] MEDS: METOPROLOL TARTRATE 12.5 MG TAB PO SCH (20:53)
[2023-10-25] MEDS: APIXABAN 5 MG TAB PO SCH (20:53)
[2023-10-26] MEDS: METOPROLOL TARTRATE 12.5 MG TAB PO SCH ×2 (09:36→20:14)
[2023-10-26] MEDS: APIXABAN 5 MG TAB PO SCH ×2 (09:36→20:14)
[2023-10-26] MEDS: NICOTINE 21MG/24HR PATCH TRANSDERM SCH (09:37)
[2023-10-26] MEDS: ASPIRIN 81 MG PO SCH (09:37)
[2023-10-26] MEDS: lisinopriL 5 MG TAB PO SCH (09:37)
[2023-10-26 10:09] LABS: Basophils # (A) 0.04 X 10*3/uL (0.00-0.10); Basophils % (A) 0.7 %; Eosinophils # (A) 0.13 X 10*3/uL (0.04-0.35); Eosinophils % (A) 2.4 %; HCT 40.6 % (39.6-50.0); HGB 13.4 g/dL (13.0-17.0); Lymphocytes # (A) 1.61 X 10*3/uL (0.90-5.00); Lymphocytes % (A) 29.1 %; MCH 29.3 pg (27.0-32.0); MCV 88.8 FL (80.0-97.0); Mean Platelet Volume 9.4 FL (9.5-12.2); Monocytes # (A) 0.67 X 10*3/uL (0.20-1.00); Monocytes % (A) 12.1 %; NRBC Per 100 WBC 0 X 10*3/uL (0.00-0.01); Neutrophils # (A) 3.06 X 10*3/uL (1.80-7.70); Neutrophils % (A) 55.3 %; Platelet Count 242 X 10*3/uL (140-440); RBC 4.57 X 10*6/uL (4.40-5.60); RDW 12.3 % (11.5-14.5); WBC 5.53 X 10*3/uL (4.50-10.00)
[2023-10-26 10:24] LABS: BUN/Creat Ratio 18.44 Ratio (12.00-20.00); Blood Urea Nitrogen 16.6 mg/dL (9.0-27.0); Carbon Dioxide 31.5 mmol/L (21.6-31.8); Chloride 102 mmol/L (96-109); Glucose 101 mg/dL (70-110); Potassium 4.5 mmol/L (3.5-5.5); Sodium 140 mmol/L (135-145)
--- NOTE | 2023-10-26 11:55 | P.CRDCN ---
History of Present Illness Consult date: 10/26/23 Chief complaint: CP History of present illness: The patient is a 68-year-old gentleman with coronary artery disease and prior stenting of the RCA and LAD and paroxysmal atrial fibrillation as well as hypertension and dyslipidemia. He presented to the emergency department complaining of chest discomfort. He stated that the discomfort was on the upper chest and lower neck associated with palpitations/heart racing and he believed is his typical for his atrial fibrillation. He is known to have paroxysmal atrial fibrillation but apparently the atrial fibrillation is very symptomatic. He stated that the frequency of the atrial fibrillation is about every 3-6 months. And no shortness of breath and no dizziness or lightheadedness and no f eeling of heart racing or fluttering and no presyncope or syncope. He has been compliant with his medications and currently is on metoprolol as well as oral anticoagulation. He has been maintaining normal sinus mechanism throughout his hospital stay. The EKG showed sinus mechanism was no significant ST or T-wave abnormalities and the troponin came in to be unremarkable. The rest of the blood work came in to be unremarkable. He stated that he underwent a stress test by Dr. Lobo according to home within the last 4 weeks. He is not quite sure what are the results and what he was informed that we will obtain a Cardiolite tomorrow. Meanwhile continue monitoring the patient for additional 24 hours. He might benefit from an event monitor or loop recorder or possibly atrial fibrillation ablation. Examination is remarkable for stable vital signs with a regular rate and rhythm and clear breathing sounds bilaterally and no lower extremity edema noted Assessment Paroxysmal atrial fibrillation Chest discomfort could be related to atrial fibrillation and could be related to severe underlying CAD Coronary artery disease with prior revascularization as described above Multiple comorbid conditions including hypertension and dyslipidemia and anxiety Plan Acute coronary event was ruled out Continue the current medical regimen including oral anticoagulation Obtain a copy of the stress test from the office tomorrow Follow-up with the patient Past Medical History Past Medical History: Atrial Fibrillation, Coronary Artery Disease (CAD), Hyperlipidemia, Hypertension, Myocardial Infarction ([place]) Additional Past Medical History / Comment(s): covid jul 2021, Cardiac arrest 2019, Last Myocardial Infarction Date:: 12/04/17 History of Any Multi-Drug Resistant Organisms: None Reported Past Surgical History: Heart Catheterization With Stent, Orthopedic Surgery Additional Past Surgical History / Comment(s): R shoulder, right foot bunion removal Past Anesthesia/Blood Transfusion Reactions: No Reported Reaction Date of Last Stent Placement:: 12/04/17 Past Psychological History: No Psychological Hx Reported Smoking Status: Current every day smoker Past Alcohol Use History: None Reported Additional Past Alcohol Use History / Comment(s): smoker since age 22 smoked 40 years 1ppd attempting to quit Past Drug Use History: None Reported Additional Drug Use History / Comment(s): smokes marijuanna rarely - Past Family History Father Family Medical History: Myocardial Infarction ([place]) Additional Family Medical History / Comment(s): smoker, lung CA Mother Family Medical History: No Reported History Medications and Allergies Home Medications Medication Instructions Recorded Confirmed Type Atorvastatin [Lipitor] 80 mg PO HS #30 tab 02/07/20 10/25/23 Rx Nitroglycerin Sl Tabs [Nitrostat] 0.4 mg SUBLINGUAL Q5M PRN #25 tab 02/07/20 10/25/23 Rx lisinopriL [Prinivil] 5 mg PO DAILY 30 Days #30 tab 02/07/20 10/25/23 Rx Cholecalciferol [Vitamin D3 (25 75 mcg PO DAILY 07/18/21 10/25/23 History Mcg = 1000 Iu)] Apixaban [Eliquis] 5 mg PO BID 30 Days #60 tab 07/24/21 10/25/23 Rx Aspirin 81 mg PO DAILY 30 Days #30 tab 07/24/21 10/25/23 Rx Acetaminophen Tab [Tylenol] 1,000 mg PO Q6H PRN 05/01/23 10/25/23 History Metoprolol Tartrate [Lopressor] 12.5 mg PO BID 10/25/23 10/25/23 History Allergies Allergy/AdvReac Type Severity Reaction Status Date / Time No Known Allergies Allergy Verified 10/25/23 13:35 Physical Exam Vitals: Vital Signs Temp Pulse Pulse Pulse Resp BP BP 10/26/23 07:15 98.2 F 52 L 16 125/79 10/26/23 03:30 98.2 F 52 L 16 124/76 10/25/23 22:23 98.0 F 53 L 16 10/25/23 22:07 57 L 128/71 10/25/23 20:54 66 16 115/74 10/25/23 17:00 60 18 123/6 10/25/23 16:00 60 18 122/74 10/25/23 15:00 58 L 18 126/74 10/25/23 14:00 58 L 18 126/80 10/25/23 13:00 64 18 120/67 10/25/23 12:00 67 16 123/80 BP Pulse Ox 10/26/23 07:15 96 10/26/23 03:30 94 L 10/25/23 22:23 157/83 98 10/25/23 22:07 10/25/23 20:54 93 L 10/25/23 17:00 95 10/25/23 16:00 96 10/25/23 15:00 95 10/25/23 14:00 97 10/25/23 13:00 98 10/25/23 12:00 94 L Intake and Output 10/25/23 10/26/23 10/26/23 22:59 06:59 14:59 Other: Voiding Method Toilet Urinal # Voids 1 Weight 72.575 kg Results 10/26/23 05:28 10/26/23 05:28 Cardiac Enzymes 10/25/23 10/25/23 Range/Units 13:45 17:55 Troponin I 0.020 0.020 (0.000-0.034) ng/mL CBC 10/26/23 Range/Units 05:28 WBC 5.53 (4.50-10.00) X 10*3/uL RBC 4.57 (4.40-5.60) X 10*6/uL Hgb 13.4 (13.0-17.0) g/dL Hct 40.6 (39.6-50.0) % Plt Count 242 (140-440) X 10*3/uL Comprehensive Metabolic Panel 10/26/23 Range/Units 05:28 Sodium 140 (135-145) mmol/L Potassium 4.5 (3.5-5.5) mmol/L Chloride 102 (96-109) mmol/L Carbon Dioxide 31.5 (21.6-31.8) mmol/L BUN 16.6 (9.0-27.0) mg/dL Creatinine 0.9 (0.6-1.5) mg/dL Glucose 101 (70-110) mg/dL Calcium 9.0 (8.7-10.3) mg/dL Current Medications Generic Name Dose Route Start Last Admin Trade Name Freq PRN Reason Stop Dose Admin Apixaban 5 mg 10/25/23 21:00 10/26/23 09:36 Apixaban 5 Mg Tab PO 5 mg BID [facility] Administration Protocol Aspirin 81 mg 10/26/23 09:00 10/26/23 09:37 Aspirin 81 Mg PO 81 mg DAILY [facility] Administration Atorvastatin Calcium 80 mg 10/25/23 21:00 10/25/23 20:53 Atorvastatin 80 Mg Tab PO 80 mg HS [facility] Administration Lisinopril 5 mg 10/25/23 12:30 10/26/23 09:37 Lisinopril 5 Mg Tab PO 5 mg DAILY [facility] Administration Metoprolol Tartrate 12.5 mg 10/25/23 21:00 10/26/23 09:36 Metoprolol Tartrate 12.5 Mg Tab PO 12.5 mg BID [facility] Administration Morphine Sulfate 4 mg 10/25/23 10:51 10/25/23 20:53 Morphine Sulfate 4 Mg/Ml Syringe IV 4 mg Q4HR PRN Administration Severe Pain (Scale 7 to 10) Naloxone HCl 0.2 mg 10/25/23 10:51 Naloxone 0.4 Mg/Ml 1 Ml Vial IV Q2M PRN Opioid Reversal Nicotine 1 patch 10/25/23 16:00 10/26/23 09:37 Nicotine 21mg/24hr Patch TRANSDERM Not Given DAILY [facility] Nitroglycerin 0.4 mg 10/25/23 12:29 Nitroglycerin Sl Tabs 0.4 Mg Tab SUBLINGUAL Q5M PRN Chest Pain Intake and Output 10/25/23 10/26/23 10/26/23 22:59 06:59 14:59 Other: Voiding Method Toilet Urinal # Voids 1 Weight 72.575 kg 10/26/23 05:28 10/26/23 05:28
--- NOTE | 2023-10-26 13:21 | P.PN ---
Subjective Progress Note Date: 10/26/23 History of Presenting Illness: Patient is a very pleasant 68-year-old male with a past medical history of CAD with history of previous cardiac arrest in 2019 and is currently status post stenting 8 per his reports, atrial fibrillation on anticoagulation with Eliquis, hypertension, hyperlipidemia, and nicotine dependence. Patient follows with [facility] with Dr. Lobo. He presented to the emergency department with a chief complaint of chest pain/pressure radiating up into his neck and bilateral shoulders accompanied by palpitations. Patient reported initially he thought maybe it was his atrial fibrillation so he took an extra dose of metoprolol along with a regular strength aspirin, but when that did not work he knew he had to call EMS for transport to the hospital. Per ED documentation EMS reports patient had 5 seconds of sustained V. tach captured on the monitor during transport. Upon arrival to the emergency department patient underwent full evaluation. Vital signs upon arrival show blood pressure 126/80, heart rate 81, respiratory rate 18, temp 97.9F, SpO2 of 99% on room air. EKG upon arrival showing normal sinus rhythm at 67 bpm with an incomplete right bundle branch block, no significant T-wave or ST abnormalities showing no signs of acute ischemia upon personal review and interpretation. Chest x-ray negative for acute cardiopulmonary process. Labs completed and reviewed. CBC, CMP, and coagulation profile were unremarkable. Initial troponin is 0.015. Patient admitted under our services with consultation to cardiology. Troponins trended overnight and negative at 0.015, 0.020, and 0.020. Physical exam: Patient seen and fully evaluated at bedside this morning. He reports he continues to have mild pressure/pain to his neck and bilateral shoulders but currently denies having any palpitations, dizziness, lightheadedness, chest pain or shortness of breath. Vital signs reviewed and stable. General: Nontoxic, no distress and appears stated age. Derm: Skin warm and dry, normal coloration for ethnicity. Head: Atraumatic, normocephalic and symmetric. Eyes: EOMs intact, no lid lag, and anicteric sclera Mouth: no lip lesions, mucus membranes moist Cardiovascular: regular rate and rhythm with normal S1S2, no murmur, positive posterior tibial pulses bilaterally, and cap refill < 2 seconds. Lungs: Respirations even, regular, and unlabored on room air. Lungs CTA bilaterally, no rhonchi, no rales, no wheezing, and no accessory muscle usage. Abdominal: soft, nontender to palpation, no guarding, no appreciable organ omegaly Ext: ROM intact. No gross muscle atrophy, no edema, no contractures Neuro: Speech clear, face symmetrical and CN II-XII grossly intact with no noted focal neuro deficits Psych: Alert and oriented to person, place, time, and situation. Appropriate and pleasant affect. Assessment and Plan of Care: Chest pain, acute coronary event ruled out History of CAD status post stenting History of cardiac arrest Paroxysmal atrial fibrillation Reports of a run of nonsustained V. tach Hypertension Hyperlipidemia Nicotine dependence -Cardiology consulted, appreciate further recommendations -Telemetry monitoring -Troponins trended overnight and negative at 0.015, 0.020, and 0.020. -Cardiac diet -Continue cardiac medication regimen with Eliquis 5 mg twice daily, aspirin 81 mg daily, atorvastatin 80 mg nightly, lisinopril 5 mg daily, and metoprolol 12.5 mg twice daily. -Echocardiogram completed 07/19/21 revealed an EF of 60-65%. Will defer to cardiology if they would like to repeat echocardiogram or have a recent outpatient echocardiogram results available from their office. -Recommend smoking cessation and continuation of nicotine patch 21 mg daily. Data and imaging reviewed: Vital signs reviewed and stable. Blood pressure 125/79, heart rate 52, respiratory rate 16, temp 98.2F, SpO2 of 96% on room air. Troponins trended overnight and negative at 0.015, 0.020, and 0.020. CODE STATUS: Full code DVT prophylaxis: Eliquis Anticipated discharge date: Clinical course to determine, likely 24-[address]: Home Patient was seen independently by Nurse Practitioner. This document was prepared using [employer] dictation software. Please allow for errors in indoor landscape architect while rare they do occur. Aaron Major NP rendered care for this patient independently, reviewed the findings and plan as documented in the note above. I did not physically speak with or examine the patient on this date. Objective - Vital Signs Vital signs: Vital Signs Temp 98.2 F 10/26/23 07:15 Pulse 52 L 10/26/23 07:15 Resp 16 10/26/23 07:15 BP 125/79 10/26/23 07:15 Pulse Ox 96 10/26/23 07:15 FiO2 Intake & Output 10/25/23 10/26/2310/26/24 18:59 06:59 18:59 Weight 72.575 kg 72.575 kg Other: Voiding Method Toilet Urinal # Voids 1 - Labs CBC & Chem 7: 10/26/23 05:28 10/27/23 07:27 Labs: Abnormal Lab Results - Last 24 Hours (Table) 10/25/23 Range/Units 09:08 Glucose 125 H (74-99) mg/dL
[2023-10-26] MEDS: MORPHINE SULFATE 4 MG/ML SYRINGE IV PRN ×2 (15:07→20:21)
[2023-10-26] MEDS: ATORVASTATIN 80 MG TAB PO SCH (20:14)
[2023-10-27] MEDS: NITROGLYCERIN SL TABS 0.4 MG TAB SUBLINGUAL PRN ×2 (06:16→17:19)
[2023-10-27] MEDS ORDERED: DILTIAZEM 125 MG in SODIUM CHLORIDE 0.9% 100 ML IV SCH ×2 (07:15→10:15)
[2023-10-27 07:56] LABS: Glucose,Whole Blood 125 mg/dL (70-110)
[2023-10-27 08:10] LABS: African American GFR (CKD) >90 (>60 ml/min/1.73 sqM); Anion Gap 8 mmol/L; Blood Urea Nitrogen 19 mg/dL (9-20); Calcium 9.1 mg/dL (8.4-10.2); Carbon Dioxide 30 mmol/L (22-30); Chloride 101 mmol/L (98-107); Glucose 114 mg/dL (74-99); Non-African American GFR(CKD) >90 (>60 ml/min/1.73 sqM); Sodium 139 mmol/L (137-145)
[2023-10-27] MEDS ORDERED: MIDAZOLAM 2 MG/2 ML VIAL ONE (08:56)
[2023-10-27] MEDS ORDERED: MIDAZOLAM 1 MG/ML 5 ML VIAL IV STA (08:57)
[2023-10-27] MEDS: DEXTROSE 5% IN WATER 100 ML with AMIODARONE 150 MG IV ONE ×3 (08:58→09:25)
[2023-10-27] MEDS ORDERED: AMIODARONE 360 MG in DEXTROSE 5% IN WATER 200 ML IV ONE ×2 (09:11)
[2023-10-27] MEDS ORDERED: DEXTROSE 5% IN WATER 100 ML with AMIODARONE 150 MG IV ONE (09:11)
[2023-10-27] MEDS ORDERED: HEPARIN SODIUM 1,000 UN/ML (10ML VL) IV PRN (09:13)
[2023-10-27] MEDS: METOPROLOL TARTRATE 12.5 MG TAB PO SCH ×2 (09:26→21:17)
[2023-10-27] MEDS: ASPIRIN 81 MG PO SCH (09:26)
[2023-10-27] MEDS: SODIUM CHLORIDE 0.9% 250 ML IV SCH ×3 (09:28→10:09)
[2023-10-27] MEDS: HEPARIN SOD,PORK IN 0.45% NACL 25,000 UNIT in 0.45% NACL 1 250ML.BAG IV SCH (09:29)
[2023-10-27 09:41] LABS: Partial Thromboplastin Time 27.4 sec (22.0-30.0); Prothrombin Time 11.2 sec (10.0-12.5)
--- NOTE | 2023-10-27 13:10 | P.PN ---
Subjective Progress Note Date: 10/27/23 Hospital course:: Patient is a very pleasant 68-year-old male with a past medical history of CAD with history of previous cardiac arrest in 2019 and is currently status post stenting 8 per his reports, atrial fibrillation on anticoagulation with Eliquis, hypertension, hyperlipidemia, and nicotine dependence. Patient follows with [facility] with Dr. Lobo. He presented to the emergency department on 10/25/23 with a chief complaint of chest pain/pressure radiating up into his neck and bilateral shoulders accompanied by palpitations. Patient reported initially he thought maybe it was his atrial fibrillation so he took an extra dose of metoprolol along with a regular strength aspirin, but when that did not work he knew he had to call EMS for transport to the hospital. Per ED documentation EMS reports patient had 5 seconds of non-sustained V. tach captured on their monitor during transport. Upon arrival to the emergency department patient underwent full evaluation. Vital signs upon arrival show blood pressure 126/80, heart rate 81, respiratory rate 18, temp 97.9F, SpO2 of 99% on room air. EKG upon arrival showing normal sinus rhythm at 67 bpm with an incomplete right bundle branch block, no significant T-wave or ST abnormalities showing no signs of acute ischemia upon personal review and interpretation. Chest x-ray negative for acute cardiopulmonary process. Labs completed and reviewed. CBC, CMP, and coagulation profile were unremarkable. Initial troponin is 0.015. Patient admitted under our services with consultation to cardiology. Troponins trended overnight and negative at 0.015, 0.020, and 0.020. 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 tach vs atrial fibrillation RVR with aberrancy, as patient is known to have history of incomplete right bundle branch block. Patient was transferred to ICU and continued to have recurrent episodes of tachycardia with rates up to 190s. Patient required cardioversion 2 attempts and was given 2 amiodarone boluses followed by infusion along with Cardizem bolus and infusion. Physical exam: Vital signs reviewed and stable. General: Nontoxic, no distress and appears stated age. Derm: Skin warm and dry, normal coloration for ethnicity. Head: Atraumatic, normocephalic and symmetric. Eyes: EOMs intact, no lid lag, and anicteric sclera Mouth: no lip lesions, mucus membranes moist Cardiovascular: regular rate and tachycardic rhythm, no murmur, positive posterior tibial pulses bilaterally, and cap refill < 2 seconds. Lungs: Respirations even, regular, and unlabored on room air. Lungs CTA bilaterally, no rhonchi, no rales, no wheezing, and no accessory muscle usage. Abdominal: soft, nontender to palpation, no guarding, no appreciable organomegaly Ext: ROM intact. No gross muscle atrophy, no edema, no contractures Neuro: Speech clear, face symmetrical and CN II-XII grossly intact with no noted focal neuro deficits Psych: Alert and oriented to person, place, time, and situation. Appropriate and pleasant affect. Assessment and Plan of Care: Early this morning patient again had episode of chest pain/pressure and went into episode of sustained V. tach vs atrial fibrillation with aberrancy, as patient is known to have history of incomplete right bundle branch block and rates were elevated up to 190s. Patient was transferred to ICU and continued to have recurrent episodes of tachycardia with rates up to 190s. Patient required urgent cardioversion 2 attempts and was given 2 boluses of amiodarone 150 mg each followed by infusion. Patient was then given Cardizem bolus followed by infusion at 10 mg per hour. Credit Specialist discontinued Eliquis and started patient on low intensity heparin infusion at 12 units/kg/hour. Patient's care transferred to supervising physician, Dr. Saavedra after arrival to ICU. Recurrent runs of sustained V. tach versus atrial fibrillation with aberrancy heart rates up to 190s Chest pain, acute coronary event ruled out History of CAD status post stenting History of cardiac arrest Paroxysmal atrial fibrillation Hypertension Hyperlipidemia Nicotine dependence -Patient transferred to ICU -Continue amiodarone infusion and given Cardizem bolus followed by infusion at 10 mg per hour -Cardiology following, discontinued Eliquis and started patient on low intensity heparin infusion at 12 units/kg/hour. -Follow PTT every 6 hours to monitor for goal therapeutic range between 44 and 79 seconds. -Patient to remain on continuous telemetry monitoring -Continue cardiac medication regimen with aspirin 81 mg daily, atorvastatin 80 mg nightly, lisinopril 5 mg daily, and metoprolol 12.5 mg twice daily. -Echocardiogram completed 07/19/21 revealed an EF of 60-65%. Will defer to cardiology if they would like to repeat echocardiogram or have a recent outpatient echocardiogram results available from their office. -Recommend smoking cessation and continuation of nicotine patch 21 mg daily. Data and imaging reviewed: Vital signs reviewed. Blood pressure 140/92, heart rate 142, respiratory rate 12, temp 97.8F, and SpO2 of 97% on 2 L. Labs completed and reviewed. BMP unremarkable with sodium 139, potassium 4.0, chloride 101, and magnesium of 2.0. Troponin less than 0.012. CODE STATUS: Full code DVT prophylaxis: Heparin infusion Anticipated discharge date: Clinical course to determine. Anticipated discharge place: Home Patient was seen independently by Nurse Practitioner. This document was prepared using [employer] dictation software. Please allow for errors in land planner while rare they do occur. Addendum: Telemetry reviewed from overnight. Patient maintained sinus rhythm throughout the night, had prolonged periods of monomorphic wide complex tachycardia, lasting nearly 6 minutes this morning. There was concern for sustained ventricular tachycardia. Patient was eventually transferred to a stepdown unit however due to lack of bed availability patient was transferred to medical ICU. Cardiology was also made aware. Patient received 2 boluses of amiodarone 150 mg, and had cardioversion 2 which did not convert his rhythm. Upon conversation with cardiology, believed to be having atrial fibrillation with possibly a rate dependent bundle branch block or supraventricular tachycardia with aberrancy. Patient remained hemodynamically stable throughout these episodes, which was against sustained ventricular tachycardia. He was started on Cardizem 10 mg per hour in ICU, and eventually converted to sinus rhythm with rates of 50s to 60s. Blood pressure remained stable. Patient was seen along with nurse practitioner, Aaron Major. I agree with rest of her assessment and plan. Objective - Vital Signs Vital signs: Vital Signs Temp 97.8 F 10/27/23 08:00 Pulse 88 10/27/23 08:00 Resp 27 H 10/27/23 08:00 BP 126/85 10/27/23 08:00 Pulse Ox 93 L 10/27/23 08:00 FiO2 Intake & Output 10/26/23 10/27/23 10/27/23 18:59 06:59 18:59 Intake Total 826 Balance 826 Intake: Oral 826 Other: Voiding Method Urinal # Voids 2 1 - Labs CBC & Chem 7: 10/26/23 05:28 10/27/23 07:27 Labs: Abnormal Lab Results - Last 24 Hours (Table) 10/26/23 10/27/23 10/27/23 Range/Units 05:28 07:27 07:54 MPV 9.4 L (9.5-12.2) FL Glucose 114 H (74-99) mg/dL POC Glucose (mg/dL) 125 H (70-110) mg/dL
--- NOTE | 2023-10-27 14:57 | P.PN ---
Subjective Progress Note Date: 10/27/23 HPI The patient is a 68-year-old gentleman with coronary artery disease and prior stenting of the RCA and LAD and paroxysmal atrial fibrillation as well as hypertension and dyslipidemia. He presented to the emergency department complaining of chest discomfort. He stated that the discomfort was on the upper chest and lower neck associated with palpitations/heart racing and he believed is his typical for his atrial fibrillation. He is known to have paroxysmal atrial fibrillation but apparently the atrial fibrillation is very symptomatic. He stated that the frequency of the atrial fibrillation is about every 3-6 months. And no shortness of breath and no dizziness or lightheadedness and no feeling of heart racing or fluttering and no presyncope or syncope. He has been compliant with his medications and currently is on metoprolol as well as oral anticoagulation. He has been maintaining normal sinus mechanism throughout his hospital stay. The EKG showed sinus mechanism was no significant ST or T-wave abnormalities and the troponin came in to be unremarkable. The rest of the blood work came in to be unremarkable. He stated that he underwent a stress test by Dr. Lobo according to home within the last 4 weeks. He is not quite sure what are the results and what he was informed that we will obtain a Cardiolite tomorrow. Meanwhile continue monitoring the patient for additional 24 hours. He might benefit from an event monitor or loop recorder or possibly a trial fibrillation ablation. Examination is remarkable for stable vital signs with a regular rate and rhythm and clear breathing sounds bilaterally and no lower extremity edema noted 10/27/22 Patient was seen and examined at bedside. Cardiology was paged as patient was noticed to be in wide complex tachycardia with heart rate in 200s. I immediately went to the patient's bedside to evaluate him. On review of his rhythm, it seems to have an irregular pattern to his wide complex tachycardia gi ving me an idea of atrial fibrillation with aberrancy. However possibility of actual VT could not be ruled out. Patient received 2 boluses of 150 mg amiodarone and was started on amiodarone drip thereafter. He never lost his pulse. Patient was given a synchronous cardioversion 2 with no success. Around 10:30 AM patient converted to normal sinus rhythm and his wide complex left bundle morphology was resolved. On exam Alert oriented 3, no significant distress Regular rate and rhythm, normal pulses, no significant murmurs Good air entry bilateral lung jang with no crackles wheezes or rhonchi No swelling in lower extremity, no JVD elevation Assessment Paroxysmal atrial fibrillation, symptomatic Rate related left bundle branch block Atrial fibrillation with aberrancy giving the appearance off into bradycardia Chest discomfort be related to atrial fibrillation Coronary artery disease with prior revascularization to LAD and RCA. 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 Multiple comorbid conditions including hypertension and dyslipidemia and anxiety Plan Troponins were negative when patient was in atrial fibrillation with RVR. Troponin 3 during the hospitalization have been negative. Unlikely acute coronary syndrome. Patient's symptoms are better since he is in normal sinus rhythm. His symptoms corresponds to him going into atrial fibrillation with RVR. Obtain an echocardiogram. Continue IV amiodarone today. Patient is a good candidate for PVI ablation. We will bring the patient to Dr. floyd's attention Objective - Vital Signs Vital signs: Vital Signs Temp 97.9 F 10/27/23 12:00 Pulse 53 L 10/27/23 14:00 Resp 21 10/27/23 14:00 BP 122/69 10/27/23 14:00 Pulse Ox 94 L 10/27/23 14:00 FiO2 Intake & Output 10/26/23 10/27/23 10/27/23 18:59 06:59 18:59 Intake Total 826 900 Output Total 1005 Balance 826 -105 Intake: IV 250 Sodium Chloride 0.9% 250 250 ml @ 999 mls/hr IV .Q16M FILIPE Rx#:[id number] Oral 826 650 Output: Urine 1005 Other: Voiding Method Urinal Urinal # Voids 2 1 - Labs CBC & Chem 7: 10/26/23 05:28 10/27/23 07:27 Labs: Abnormal Lab Results - Last 24 Hours (Table) 10/27/23 10/27/23 Range/Units 07:27 07:54 Glucose 114 H (74-99) mg/dL POC Glucose (mg/dL) 125 H (70-110) mg/dL
[2023-10-27] MEDS: AMIODARONE 450 MG in DEXTROSE 5% IN WATER 250 ML IV SCH ×2 (16:14)
[2023-10-27] MEDS: MORPHINE SULFATE 4 MG/ML SYRINGE IV PRN ×2 (17:20→22:25)
[2023-10-27] MEDS: ATORVASTATIN 80 MG TAB PO SCH (21:17)
[2023-10-28] MEDS: AMIODARONE 450 MG in DEXTROSE 5% IN WATER 250 ML IV SCH ×2 (05:49)
[2023-10-28 06:41] LABS: Basophils % (A) 0 %; Eosinophils # (A) 0.1 k/uL (0-0.7); Eosinophils % (A) 1 %; HCT 40.3 % (39.0-53.0); Lymphocytes # (A) 1.9 k/uL (1.0-4.8); Lymphocytes % (A) 18 %; MCH 30.7 pg (25.0-35.0); MCHC 34.7 g/dL (31.0-37.0); MCV 88.5 fL (80.0-100.0); Mean Platelet Volume 7.3; Monocytes # (A) 0.6 k/uL (0-1.0); Monocytes % (A) 6 %; Neutrophils # (A) 7.4 k/uL (1.3-7.7); Neutrophils % (A) 73 %; Platelet Count 294 k/uL (150-450); RBC 4.55 m/uL (4.30-5.90); RDW 12.2 % (11.5-15.5); WBC 10.2 k/uL (3.8-10.6)
[2023-10-28 06:59] LABS: African American GFR (CKD) >90 (>60 ml/min/1.73 sqM); Anion Gap 5 mmol/L; Blood Urea Nitrogen 18 mg/dL (9-20); Calcium 8.7 mg/dL (8.4-10.2); Carbon Dioxide 27 mmol/L (22-30); Chloride 103 mmol/L (98-107); Glucose 107 mg/dL (74-99); Magnesium 2.1 mg/dL (1.6-2.3); Non-African American GFR(CKD) >90 (>60 ml/min/1.73 sqM); Potassium 4.2 mmol/L (3.5-5.1); Sodium 135 mmol/L (137-145)
[2023-10-28 07:07] LABS: INR 1.1 (<1.2); Prothrombin Time 11.4 sec (10.0-12.5)
[2023-10-28] MEDS: METOPROLOL TARTRATE 12.5 MG TAB PO SCH ×2 (08:36→21:58)
[2023-10-28] MEDS: ASPIRIN 81 MG PO SCH (08:36)
[2023-10-28] MEDS: HEPARIN SOD,PORK IN 0.45% NACL 25,000 UNIT in 0.45% NACL 1 250ML.BAG IV SCH (09:13)
[2023-10-28] MEDS: MORPHINE SULFATE 4 MG/ML SYRINGE IV PRN ×2 (09:40→15:07)
--- NOTE | 2023-10-28 10:09 | CA ---
Transthoracic Echo Report Name: Finesse Davila Age: 68 Gender: M : 1955 Exam Date: 10/27/2023 16:17 Exam Location: [place] [facility] Ht (in): 68 Wt (lb): 160 Ordering Physician: Lauri Saravia MD ([id number]) Attending/Referring Phys: Gamma Operator Grant Schaffer Procedure CPT: Indications: VTach Cardiac Hx: Technical Quality: Technically difficult study Contrast 1: Definity Total Dose (mL): 2 Contrast 2: Total Dose (mL): MEASUREMENTS (Male / Female) Normal Values 2D ECHO LV Diastolic Diameter PLAX 4.4 cm 4.2 - 5.9 / 3.9 - 5.3 cm LV Systolic Diameter PLAX 2.4 cm IVS Diastolic Thickness 1.0 cm 0.6 - 1.0 / 0.6 - 0.9 cm LVPW Diastolic Thickness 1.0 cm 0.6 - 1.0 / 0.6 - 0.9 cm LV Relative Wall Thickness 0.4 RV Internal Dim ED PLAX 2.0 cm LVOT Diameter 2.1 cm Aortic Root Diameter 3.6 cm LA Systolic Diameter LX 1.9 cm 3.0 - 4.0 / 2.7 - 3.8 cm LV Diastolic Volume MOD BP 49.4 cm??? 67 - 155 / 56 - 104 cm??? LV Systolic Volume MOD BP 20.7 cm??? 22 - 58 / 19 - 49 cm??? LV Ejection Fraction MOD BP 58.2 % >= 55 % LV Cardiac Index MOD BP 844.2 cm???/min???m??? LV Diastolic Volume MOD 4C 59.2 cm??? LV Systolic Volume MOD 4C 24.7 cm??? LV Ejection Fraction MOD 4C 58.3 % LV Cardiac Index MOD 4C 1014.0 cm???/min???m??? LV Diastolic Length 4C 7.8 cm LV Systolic Length 4C 6.6 cm LV Diastolic Volume MOD 2C 33.8 cm??? LV Systolic Volume MOD 2C 15.9 cm??? LV Ejection Fraction MOD 2C 53.0 % LV Cardiac Index MOD 2C 525.5 cm???/min???m??? LV Diastolic Length 2C 6.4 cm LV Systolic Length 2C 5.9 cm Ascending Aorta Diameter 2.8 cm DOPPLER AV Peak Velocity 108.0 cm/s AV Peak Gradient 4.7 mmHg LVOT Peak Velocity 85.7 cm/s LVOT Peak Gradient 2.9 mmHg LVOT Velocity Time Integral 19.1 cm LVOT Stroke Volume 67.3 cm??? LVOT Stroke Volume Index 36.2 ml/m??? LVOT Cardiac Index 1976.1 cm???/min???m??? AV Area Cont Eq pk 2.8 cm??? MV Peak Velocity 86.9 cm/s MV Peak Gradient 3.0 mmHg MV Mean Velocity 37.6 cm/s MV Mean Gradient 0.8 mmHg MV Velocity Time Integral 39.7 cm Mitral E Point Velocity 86.5 cm/s Mitral A Point Velocity 97.0 cm/s Mitral E to A Ratio 0.9 MV Deceleration Time 272.7 ms PV Peak Velocity 99.9 cm/s PV Peak Gradient 4.0 mmHg FINDINGS Left Ventricle Normal LV size and wall thickness. Left ventricular ejection fraction is estimated at 45-50 %. Posterior basal hypokenesis. Right Ventricle Normal right ventricular size. Right Atrium Normal right atrial size. Left Atrium Normal left atrial size. Mitral Valve Structurally normal mitral valve. No mitral stenosis. No mitral regurgitation. Aortic Valve Trileaflet aortic valve. No aortic stenosis. No aortic regurgitation. Tricuspid Valve Tricuspid valve not well visualized. Trace TR. Pulmonic Valve Pulmonic valve not well visualized. No pulmonic regurgitation. Pericardium Normal pericardium. Aorta Normal size aortic root and proximal ascending aorta. CONCLUSIONS Mildly reduced LV systolic function with severe inferior septal/inferior basal hypokinesis Previewed by: Dr. Luis Antonio Layne MD (Electronically Signed) Final Date: 28 October 2023 10:08
[2023-10-28] MEDS: AMIODARONE 200 MG TAB PO SCH ×2 (11:44→21:58)
[2023-10-28] MEDS: APIXABAN 5 MG TAB PO SCH ×2 (11:56→21:58)
[2023-10-28] MEDS: lisinopriL 10 MG TAB PO SCH (11:56)
--- NOTE | 2023-10-28 12:00 | P.PN ---
Subjective Progress Note Date: 10/28/23 Hospital course:: Patient is a very pleasant 68-year-old male with a past medical history of CAD with history of previous cardiac arrest in 2019 and is currently status post stenting 8 per his reports, atrial fibrillation on anticoagulation with Eliquis, hypertension, hyperlipidemia, and nicotine dependence. Patient follows with [facility] with Dr. Lobo. He presented to the emergency department on 10/25/23 with a chief complaint of chest pain/pressure radiating up into his neck and bilateral shoulders accompanied by palpitations. Patient reported initially he thought maybe it was his atrial fibrillation so he took an extra dose of metoprolol along with a regular strength aspirin, but when that did not work he knew he had to call EMS for transport to the hospital. Per ED documentation EMS reports patient had 5 seconds of non-sustained V. tach captured on their monitor during transport. Upon arrival to the emergency department patient underwent full evaluation. Vital signs upon arrival show blood pressure 126/80, heart rate 81, respiratory rate 18, temp 97.9F, SpO2 of 99% on room air. EKG upon arrival showing normal sinus rhythm at 67 bpm with an incomplete right bundle branch block, no significant T-wave or ST abnormalities showing no signs of acute ischemia upon personal review and interpretation. Chest x-ray negative for acute cardiopulmonary process. Labs completed and reviewed. CBC, CMP, and coagulation profile were unremarkable. Initial tropo anurag is 0.015. Patient admitted under our services with consultation to cardiology. Troponins trended overnight and negative at 0.015, 0.020, and 0.020. 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 tach vs atrial fibrillation RVR with aberrancy, as patient is known to have history of incomplete right bundle branch block. Patient was transferred to ICU and continued to have recurrent episodes of tachycardia with rates up to 190s. Patient required cardioversion 2 attempts and was given 2 amiodarone boluses followed by infusion along with Cardizem bolus and infusion. Eventually converted to sinus rhythm with rates of 50s to 60s. Blood pressure remained stable. Now he is off of Cardizem drip. Continues to be on amiodarone drip. Patient seen and examined at bedside. No acute events overnight. Overall feeling a little tired and some pain in his bilateral shoulders and around right armpit. He claims that it comes and goes depending on which position he is in. Physical exam: Vital signs reviewed and stable. General: Nontoxic, no distress and appears stated age. Derm: Skin warm and dry, normal coloration for ethnicity. Head: Atraumatic, normocephalic and symmetric. Eyes: EOMs intact, no lid lag, and anicteric sclera Mouth: no lip lesions, mucus membranes moist Cardiovascular: regular rate and rhythm, no murmur, positive posterior tibial pulses bilaterally, and cap refill < 2 seconds. Lungs: Respirations even, regular, and unlabored on room air. Lungs CTA bilaterally, no rhonchi, no rales, no wheezing, and no accessory muscle usage. Abdominal: soft, nontender to palpation, no guarding, no appreciable organomegaly Ext: ROM intact. No gross muscle atrophy, no edema, no contractures Neuro: Speech clear, face symmetrical and CN II-XII grossly intact with no noted focal neuro deficits Psych: Alert and oriented to person, place, time, and situation. Appropriate and pleasant affect. Assessment and Plan of Care: Patient is severely ill, in medical ICU. Prognosis guarded Paroxysmal atrial fibrillation with RVR, now in sinus rhythm Chest pain, acute coronary event ruled out History of CAD status post stenting History of cardiac arrest Hypertension Hyperlipidemia Nicotine dependence -Cardiology following, amiodarone drip changed to amiodarone 400 twice a day -Started on Eliquis 5 twice a day -Patient to remain on continuous telemetry monitoring -Continue aspirin 81 mg daily, atorvastatin 80 mg nightly, lisinopril increased to 10 mg daily, and metoprolol 12.5 mg twice daily. -Recommend smoking cessation and continuation of nicotine patch 21 mg daily. Data and imaging reviewed: WBC 10.2, hemoglobin 14, sodium 135, potassium 4.2, magnesium 2.1 CODE STATUS: Full code DVT prophylaxis: Eliquis Anticipated discharge date: Clinical course to determine. Anticipated discharge place: Home Objective - Vital Signs Vital signs: Vital Signs Temp 97.9 F 10/28/23 08:00 Pulse 49 L 10/28/23 11:00 Resp 13 10/28/23 11:48 BP 147/86 10/28/23 11:00 Pulse Ox 98 10/28/23 11:00 FiO2 Intake & Output 10/27/23 10/28/23 10/28/23 18:59 06:59 18:59 Intake Total 1116.769 711.393 574.902 Output Total 1475 450 650 Balance -358.231 261.393 -75.098 Weight 68.6 kg Intake: IV 250 110 50 0.9 KVO 110 50 Sodium Chloride 0.9% 250 250 ml @ 999 mls/hr IV .Q16M FILIPE Rx#:[id number] Intake, IV Titration 66.769 226.393 174.902 Amount Amiodarone 450 mg In 226.393 Dextrose 5% in Water 250 ml @ 0.5 MG/MIN 16.667 mls/hr IV .Q15H FILIPE Rx#: [id number] Heparin Sod,Pork in 0.45% 66.769 174.902 NaCl 25,000 unit In 0.45 % NaCl 1 250ml.bag @ 12 UNITS/KG/HR 8.709 mls/hr IV .Q24H FILIPE Rx#: [id number] Oral 800 375 350 Output: Urine 1475 450 650 Other: Voiding Method Urinal Urinal Urinal # Bowel Movements 1 - Labs CBC & Chem 7: 10/28/23 06:18 10/28/23 06:18 Labs: Abnormal Lab Results - Last 24 Hours (Table) 10/27/23 10/27/23 10/28/23 Range/Units 15:02 23:13 06:18 APTT 32.3 H 60.1 H (22.0-30.0) sec Sodium 135 L (137-145) mmol/L Glucose 107 H (74-99) mg/dL 10/28/23 Range/Units 08:13 APTT 53.0 H (22.0-30.0) sec Sodium (137-145) mmol/L Glucose (74-99) mg/dL
--- NOTE | 2023-10-28 15:37 | P.PN ---
Subjective Progress Note Date: 10/28/23 HPI The patient is a 68-year-old gentleman with coronary artery disease and prior stenting of the RCA and LAD and paroxysmal atrial fibrillation as well as hypertension and dyslipidemia. He presented to the emergency department complaining of chest discomfort. He stated that the discomfort was on the upper chest and lower neck associated with palpitations/heart racing and he believed is his typical for his atrial fibrillation. He is known to have paroxysmal atrial fibrillation but apparently the atrial fibrillation is very symptomatic. He stated that the frequency of the atrial fibrillation is about every 3-6 months. And no shortness of breath and no dizziness or lightheadedness and no feeling of heart racing or fluttering and no presyncope or syncope. He has been compliant with his medications and currently is on metoprolol as well as oral anticoagulation. He has been maintaining normal sinus mechanism throughout his hospital stay. The EKG showed sinus mechanism was no significant ST or T-wave abnormalities and the troponin came in to be unremarkable. The rest of the blood work came in to be unremarkable. He stated that he underwent a stress test by Dr. Lobo according to home within the last 4 weeks. He is not quite sure what are the results and what he was informed that we will obtain a Cardiolite tomorrow. Meanwhile continue monitoring the patient for additional 24 hours. He might benefit from an event monitor or loop recorder or possibly a trial fibrillation ablation. Examination is remarkable for stable vital signs with a regular rate and rhythm and clear breathing sounds bilaterally and no lower extremity edema noted 10/27/22 Patient was seen and examined at bedside. Cardiology was paged as patient was noticed to be in wide complex tachycardia with heart rate in 200s. I immediately went to the patient's bedside to evaluate him. On review of his rhythm, it seems to have an irregular pattern to his wide complex tachycardia gi ving me an idea of atrial fibrillation with aberrancy. However possibility of actual VT could not be ruled out. Patient received 2 boluses of 150 mg amiodarone and was started on amiodarone drip thereafter. He never lost his pulse. Patient was given a synchronous cardioversion 2 with no success. Around 10:30 AM patient converted to normal sinus rhythm and his wide complex left bundle morphology was resolved. 10/28/2022 Patient is doing well from cardiac vessel standpoint. No further episodes of atrial fibrillation with wide complex tachycardia. Continues to be in sinus rhythm. Blood pressure is slightly elevated BP 150/90 On exam Alert oriented 3, no significant distress Regular rate and rhythm, normal pulses, no significant murmurs Good air entry bilateral lung jang with no crackles wheezes or rhonchi No swelling in lower extremity, no JVD elevation Assessment Paroxysmal atrial fibrillation, symptomatic Rate related left bundle branch block Atrial fibrillation with aberrancy, not resolved Chest discomfort be related to atrial fibrillation Coronary artery disease with prior revascularization to LAD and RCA. 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 Multiple comorbid conditions including hypertension and dyslipidemia and anxiety Plan Troponins were negative when patient was in atrial fibrillation with RVR. Troponin 3 during the hospitalization have been negative. Unlikely acute coronary syndrome. Patient's symptoms are better since he is in normal sinus rhythm. His symptoms corresponds to him going into atrial fibrillation with RVR. Await echocardiogram results Discontinue IV amiodarone drip. Start amiodarone 400 mg twice a day. Patient has received 300 mg of amiodarone bolus yesterday and 900 mg IV amiodarone drip. He is currently in normal sinus rhythm. Transition her to amiodarone 200 mg by mouth daily from tomorrow Resume lisinopril 10 mg. Discontinue IV heparin drip Start Eliquis 5 mg twice a day Discussed case with Dr. floyd and set up outpatient ablation Objective - Vital Signs Vital signs: Vital Signs Temp 97.9 F 10/28/23 12:00 Pulse 52 L 10/28/23 15:00 Resp 16 10/28/23 15:00 BP 128/84 10/28/23 15:00 Pulse Ox 96 10/28/23 15:00 FiO2 Intake & Output 10/27/23 10/28/23 10/28/23 18:59 06:59 18:59 Intake Total 1116.769 711.393 914.902 Output Total 1475 450 900 Balance -358.231 261.393 14.902 Weight 68.6 kg Intake: IV 250 110 90 0.9 KVO 110 90 Sodium Chloride 0.9% 250 250 ml @ 999 mls/hr IV .Q16M [facility] Rx#:[id number] Intake, IV Titration 66.769 226.393 174.902 Amount Amiodarone 450 mg In 226.393 Dextrose 5% in Water 250 ml @ 0.5 MG/MIN 16.667 mls/hr IV .Q15H [facility] Rx#: [id number] Heparin Sod,Pork in 0.45% 66.769 174.902 NaCl 25,000 unit In 0.45 % NaCl 1 250ml.bag @ 12 UNITS/KG/HR 8.709 mls/hr IV .Q24H [facility] Rx#: [id number] Oral 800 375 650 Output: Urine 1475 450 900 Other: Voiding Method Urinal Urinal Urinal # Bowel Movements 1 - Labs CBC & Chem 7: 10/28/23 06:18 10/28/23 06:18 Labs: Abnormal Lab Results - Last 24 Hours (Table) 10/27/23 10/28/23 10/28/23 Range/Units 23:13 06:18 08:13 APTT 60.1 H 53.0 H (22.0-30.0) sec Sodium 135 L (137-145) mmol/L Glucose 107 H (74-99) mg/dL
[2023-10-28] MEDS: SODIUM CHLORIDE 0.9% 250 ML IV SCH (21:57)
[2023-10-28] MEDS: ATORVASTATIN 80 MG TAB PO SCH (21:58)
[2023-10-29] MEDS: APIXABAN 5 MG TAB PO SCH ×2 (08:09→08:30)
[2023-10-29] MEDS: lisinopriL 5 MG TAB PO SCH (08:09)
[2023-10-29] MEDS: NICOTINE 21MG/24HR PATCH TRANSDERM SCH (08:09)
[2023-10-29] MEDS: METOPROLOL TARTRATE 12.5 MG TAB PO SCH (08:29)
[2023-10-29] MEDS: lisinopriL 10 MG TAB PO SCH (08:30)
[2023-10-29] MEDS: AMIODARONE 200 MG TAB PO SCH (08:30)
[2023-10-29] MEDS: ASPIRIN 81 MG PO SCH (08:30)
[2023-10-29 09:46] LABS: African American GFR (CKD) >90 (>60 ml/min/1.73 sqM); Anion Gap 12 mmol/L; Blood Urea Nitrogen 20 mg/dL (9-20); Carbon Dioxide 28 mmol/L (22-30); Chloride 98 mmol/L (98-107); Glucose 142 mg/dL (74-99); Magnesium 2.1 mg/dL (1.6-2.3); Non-African American GFR(CKD) 89 (>60 ml/min/1.73 sqM); Potassium 4.1 mmol/L (3.5-5.1); Sodium 138 mmol/L (137-145)
--- NOTE | 2023-10-29 10:49 | P.EPPROC ---
- EP Procedure Note Electrophysiology Procedure Note: This is Dr. Layne dictating a consult on this patient The patient was interviewed and examined IMPRESSION / ASSESSMENT: Paroxysmal atrial fibrillation with RVR and aberrant conduction At heart rates of 50-60 beats a minute the QRS is narrow in sinus rhythm Rate related left bundle branch block aberrancy that is seen even in sinus rhythm at heart rates of 90 beats a minute During A. fib with RVR, rate-related aberrant conduction. Known coronary artery disease status post stenting to the RCA and to the left circumflex several years back 2-D echo shows mildly reduced LV systolic function with inferior and septal hypokinesis/akinesis PLAN: Continue amiodarone and reduce the dose to 400 mg by mouth daily within 2 weeks Check TSH Continue beta blockers and isis inhibitors Continue ELIQUIS and a baby aspirin Add a detailed discussion with the patient regarding A. fib ablation I also reassured him that this was not ventricular tachycardia or a cardiac arrest, rather just atrial fibrillation with the EKG looked different I will schedule the procedure for him HPI Patient presented to the hospital on October 25 with chest discomfort and palpitations He thought he was having A. fib and took an extra dose of metoprolol First 12-lead EKG shows sinus rhythm normal CO narrow QRS with an incomplete right bundle branch block left anterior fascicular block Chest x-ray normal Past history of coronary artery disease status post stenting many years back, history of a cardiac arrest at that time during an ND Upon detailed questioning he states that he has known paroxysmal atrial fibrillation but quite symptomatic and that the frequency of atrial fibrillation and has increased for the last 3-6 months and he is on anticoagulation and metoprolol but when his A. fib he still is experiencing chest discomfort He recently underwent a stress test in the office within the last 4 weeks Subsequently he was having runs of wide complex tachycardia and it was initially thought by the nurses and the admitting physician that it was VT He was treated with amiodarone and sent to the ICU I reviewed all the EKGs. He has intermittent left bundle branch block morphology at a ventricular rate of 90 beats a minute Telemetry strips show wide complex tachycardia with the same QRS morphology as during sinus rhythm Visit twelve-lead EKG demonstrates the wide complex rhythm. It is completely irregular On telemetry the onset of the wide complex tachycardia is associated with atrial activity prior to the wide complex QRSs, consistent with irregular PAT ROS: No fever chills or rigors, no cough, phlegm or expectoration, no nausea, vomiting or diarrhea, no hematuria, dysuria, no musculoskeletal complaints, no strokes or seizures, no skin lesions. EXAMINATION: 140/80 mmHg 139/90 mmHg pulse rate in the 80s afebrile Breath sounds are reduced bilaterally with no rhonchi no crackles Heart sounds are normal and regular line patient is comfortable REVIEW OF LABS, ECG & MEDICAL DATA normal white count normal hemoglobin Normal electrolytes Troponins are normal. In sinus rhythm at 55 beats a minute narrow QRS. The incomplete right bundle branch block pattern Twelve-lead EKG at heart rate of 90 beats a minute in sinus rhythm is associated with a left bundle branch block pattern
--- NOTE | 2023-10-29 14:05 | P.DS ---
Providers Date of admission: 10/25/23 10:52 Expected date of discharge: 10/29/23 Attending physician: Cody Saavedra MD Consults: 10/25/23 10:51 Consult Physician Urgent Consulting Provider: [facility] Consult Reason/Comments: acute chest pain, possible acs Do you want consulting provider notified?: Yes Primary care physician: [facility] Course: Discharge Diagnosis: Paroxysmal atrial fibrillation with RVR, now in sinus rhythm Chest pain, acute coronary event ruled out History of CAD status post stenting History of cardiac arrest Hypertension Hyperlipidemia Nicotine dependence Hospital Course: Patient is a very pleasant 68-year-old male with a past medical history of CAD with history of previous cardiac arrest in 2019 and is currently status post stenting 8 per his reports, atrial fibrillation on anticoagulation with Eliquis, hypertension, hyperlipidemia, and nicotine dependence. Patient follows with [facility] with Dr. Lobo. He presented to the emergency department on 10/25/23 with a chief complaint of chest pain/pressure radiating up into his neck and bilateral shoulders accompanied by palpitations. Patient reported initially he thought maybe it was his atrial fibrillation so he took an extra dose of metoprolol along with a regular strength aspirin, but when that did not work he knew he had to call EMS for transport to the hospital. Per ED documentation EMS reports patient had 5 seconds of non-sustained V. tach captured on their monitor during transport. Upon arrival to the emergency department patient underwent full evaluation. Vital signs upon arrival show blood pressure 126/80, heart rate 81, respiratory rate 18, temp 97.9F, SpO2 of 99% on room air. EKG upon arrival showing normal sinus rhythm at 67 bpm with an incomplete right bundle branch block, no significant T-wave or ST abnormalities showing no signs of acute ischemia upon personal review and interpretation. Chest x-ray negative for acute cardiopulmonary process. Labs completed and reviewed. CBC, CMP, and coagulation profile were unremarkable. Initial troponin is 0.015. Patient admitted under our services with consultation to cardiology. Troponins trended overnight and negative at 0.015, 0.020, and 0.020. show card letterer 10/27/23 patient again had episode of chest pain/pressure and went into episode of sustained V. tach vs atrial fibrillation RVR with aberrancy, as patient is known to have history of incomplete right bundle branch block. Patient was transferred to ICU and continued to have recurrent episodes of tachycardia with rates up to 190s. Patient required cardioversion 2 attempts and was given 2 amiodarone boluses followed by infusion along with Cardizem bolus and infusion. Eventually converted to sinus rhythm with rates of 50s to 60s. Blood pressure remained stable. Now he is off of Cardizem drip and amiodarone drip. On oral amiodarone. Was evaluated by gas tester. Patient pending outpatient ablation. Patient seen and examined at bedside. Vital signs reviewed and stable. General: nontoxic, no distress, appears at stated age Derm: warm, dry Head: atraumatic, normocephalic, symmetric Eyes: EOMI, no lid lag, anicteric sclera Mouth: no lip lesion, mucus membranes moist Cardiovascular: S1S2 reg, no murmur Lungs: CTA bilateral, no rhonchi, no rales , no accessory muscle use Abdominal: soft, nontender to palpation, no guarding, no appreciable organomegaly Ext: no gross muscle atrophy, no edema, no contractures Neuro: CN II-XI grossly intact, no focal neuro deficits Psych: Alert, oriented, appropriate affect A total of 33 minutes of time were spent preparing this complex discharge summary. Patient was discharged on 10/29/23 at 1404. Patient Condition at Discharge: Stable Plan - Discharge Summary Discharge Rx Participant: No New Discharge Prescriptions: New lisinopriL [Zestril] 10 mg PO DAILY #90 tab Amiodarone [Cordarone] 400 mg PO BID #100 tab Continue Atorvastatin [Lipitor] 80 mg PO HS #30 tab Nitroglycerin Sl Tabs [Nitrostat] 0.4 mg SUBLINGUAL Q5M PRN #25 tab PRN Reason: Chest Pain Acetaminophen Tab [Tylenol] 1,000 mg PO Q6H PRN PRN Reason: Pain Or Fever > 100.5 Metoprolol Tartrate [Lopressor] 12.5 mg PO BID Cholecalciferol [Vitamin D3 (25 Mcg = 1000 Iu)] 75 mcg PO DAILY Aspirin 81 mg PO DAILY 30 Days #30 tab Apixaban [Eliquis] 5 mg PO BID 30 Days #60 tab Discontinued lisinopriL [Prinivil] 5 mg PO DAILY 30 Days #30 tab Discharge Medication List Atorvastatin [Lipitor] 80 mg PO HS #30 tab 02/07/20 [Rx] Nitroglycerin Sl Tabs [Nitrostat] 0.4 mg SUBLINGUAL Q5M PRN #25 tab 02/07/20 [Rx] Cholecalciferol [Vitamin D3 (25 Mcg = 1000 Iu)] 75 mcg PO DAILY 07/18/21 [History] Apixaban [Eliquis] 5 mg PO BID 30 Days #60 tab 07/24/21 [Rx] Aspirin 81 mg PO DAILY 30 Days #30 tab 07/24/21 [Rx] Acetaminophen Tab [Tylenol] 1,000 mg PO Q6H PRN 05/01/23 [History] Metoprolol Tartrate [Lopressor] 12.5 mg PO BID 10/25/23 [History] Amiodarone [Cordarone] 400 mg PO BID #100 tab 10/29/23 [Rx] lisinopriL [Zestril] 10 mg PO DAILY #90 tab 10/29/23 [Rx] Follow up Appointment(s)/Referral(s): Karely Lobo MD [STAFF PHYSICIAN] - 1 Week None,Stated [REFERRING] - 1-2 days Luis Antonio Layne MD [STAFF PHYSICIAN] - 1 Week Patient Instructions/Handouts: A-fib (Atrial Fibrillation) (DC) Activity/Diet/Wound Care/Special Instructions: Amiodarone schedule Amiodarone 400 mg twice daily for one week then 400 mg daily thereafter for one month Subsequently reduce the dose down to 200 mg by mouth daily Follow TSH and LFTs Discharge Disposition: HOME SELF-CARE
[2023-10-29 15:47] VITALS: RESP 16
[2023-10-29 17:58] VITALS: BP 137/85; PULSE 63; TEMP 98.6
== END 2023-10-29 17:35 | disposition home or self-care (01) | DRG 310 ==
LOC: EC 08:39 → SUPCPDRO 08:39 → 6NMEDSUR 10:51 → OBSVTOIN 10:52 → 6NMEDSUR 12:35 → 2SICU 10-27 07:44 → 3SCARD 10-28 21:14
PROVIDERS: ADMIT Student in an Organized Health Care Education/Training Program; ATTEND Student in an Organized Health Care Education/Training Program
PROC: 3E033RZ Introduction of Antiarrhythmic into Peripheral Vein, Percutaneous Approach (ICD-10-PCS; principal; 2023-10-27)
PROC: 5A2204Z Restoration of Cardiac Rhythm, Single (ICD-10-PCS; 2023-10-27)
DX: I48.0 Paroxysmal atrial fibrillation (principal); I25.10 Atherosclerotic heart disease of native coronary artery without angina pectoris; E78.5 Hyperlipidemia, unspecified; I10 Essential (primary) hypertension; F17.200 Nicotine dependence, unspecified, uncomplicated; R00.1 Bradycardia, unspecified; I45.2 Bifascicular block; F41.9 Anxiety disorder, unspecified; I47.20 Ventricular tachycardia, unspecified; I25.2 Old myocardial infarction; Z79.01 Long term (current) use of anticoagulants; Z28.310 Unvaccinated for COVID-19; Z86.74 Personal history of sudden cardiac arrest; Z86.16 Personal history of COVID-19; Z95.5 Presence of coronary angioplasty implant and graft; Z79.899 Other long term (current) drug therapy; Z79.82 Long term (current) use of aspirin; Z71.6 Tobacco abuse counseling
CPT/HCPCS: 36415; 71046; 80048; 80053; 83735; 83880; 84443; 84484; 85025; 85610; 85730; 93005; 93306; 96374; 96376; 99285

== ENCOUNTER → 2023-12-01 | Outpatient (CLI) | payer OTHER ==
--- NOTE | 2023-12-01 14:04 | CTL ---
EXAMINATION TYPE: CT Low Dose Lung DATE OF EXAM ORDERED: 12/01/2023 HISTORY:Lung cancer screening CT DLP: 98.[address] CTDI: 2.8 mGy Automated exposure control for dose reduction was used COMPARISON: March 05, 2022 TECHNIQUE: Low dose computed tomography scan was performed through the chest at 1 mm thick sections a nd reconstructed images in multiple planes at 1 mm and [address] DIAGNOSTIC QUALITY: Satisfactory FINDINGS: There are multiple sub-6 mm pulmonary nodules bilaterally all of which are stable with the exception of a small nodule in the left lung base which has grown from 3 to 4 mm to nearly 6 mm. There is no abnormal airspace/consolidated density or abnormal interstitial density There is no pleural effusion, pleural thickening or pneumothorax. The great vessels chest are normal there's no mediastinal, hilar or axillary adenopathy. Limited scanning through the upper abdomen reveals no gross abnormality. The focal osseous lesions are seen. IMPRESSION: 1. Lung rads category 3, likely benign but 3-6 month follow-up CT thorax is recommended to confirm st ability of the left lower lobe pulmonary nodule which is shown mild interval growth. 2. No acute cardiac pulmonary disease.
== END | disposition home or self-care (01) ==
LOC: RADCTMAIN 11:51
PROVIDERS: ATTEND Family Medicine
DX: Z12.2 Encounter for screening for malignant neoplasm of respiratory organs (principal); Z87.891 Personal history of nicotine dependence
CPT/HCPCS: 71271

== ENCOUNTER → 2023-12-01 | Outpatient (CLI) | payer OTHER ==
[2023-12-01 15:13] LABS: HCT 41.1 % (39.6-50.0); HGB 13.6 g/dL (13.0-17.0); MCH 29.8 pg (27.0-32.0); MCHC 33.1 g/dL (32.0-37.0); MCV 89.9 FL (80.0-97.0); NRBC Per 100 WBC 0 X 10*3/uL (0.00-0.01); Platelet Count 306 X 10*3/uL (140-440); RBC 4.57 X 10*6/uL (4.40-5.60); RDW 12.9 % (11.5-14.5); WBC 7.36 X 10*3/uL (4.50-10.00)
[2023-12-01 15:39] LABS: Blood Urea Nitrogen 17.6 mg/dL (9.0-27.0); Carbon Dioxide 29.1 mmol/L (21.6-31.8); Chloride 103 mmol/L (96-109); Sodium 143 mmol/L (135-145)
== END | disposition home or self-care (01) ==
LOC: LABPAT 12:30
PROVIDERS: ATTEND Internal Medicine Clinical Cardiac Electrophysiology
DX: Z01.812 Encounter for preprocedural laboratory examination (principal); I48.0 Paroxysmal atrial fibrillation; R00.1 Bradycardia, unspecified
CPT/HCPCS: 36415; 80051; 82565; 84520; 85027

== ENCOUNTER → 2024-03-29 | Outpatient (CLI) | payer OTHER ==
--- NOTE | 2024-03-29 15:33 | CTL ---
EXAMINATION TYPE: CT Low Dose Lung DATE OF EXAM ORDERED: 03/29/2024 HISTORY: . Low Dose CT Lung Screening CT DLP: 80.[address] CTDI: 2.1 mGy IV CONTRAST USED: None. SCREENING VISIT: First visit COMPARISON: 12/01/2023 TECHNIQUE: Low dose computed tomography scan was performed through the chest at 1 millimeter thick se ctions and reconstructed images in the coronal plane at [address] DIAGNOSTIC QUALITY: Satisfactory FINDINGS: LUNG NODULES: sub 5 mm pulmonary nodules are scattered bilaterally and are unchanged in number and ov erall size. No progression is seen. LUNGS: COPD: Severity: mild Fibrosis: Severity:None Lymph nodes: None Other findings: None RIGHT PLEURAL SPACE: Effusion: None Calcification: None Thickening: None Pneumothorax: None LEFT PLEURAL SPACE: Effusion: None Calcification: None Thickening: None Pneumothorax: None HEART: Heart Size: Mildly enlarged Coronary calcification: Mild Pericardial effusion: None OTHER FINDINGS: Upper abdomen: No significant abnormality Bony thorax: Degenerative changes Supraclavicular region: No significant abnormalityOther: No significant abnormalityI IMPRESSION: sub 5 mm pulmonary nodules are scattered bilaterally and are unchanged in number and over all size. No progression is seen. FOLLOW UP CT CHEST RECOMMENDATION: Follow-up screening in one year CT LUNG RAD: LUNG RAD CATEGORY 2 benign appearance and behavior.
== END | disposition home or self-care (01) ==
LOC: RADCTMAIN 14:58
PROVIDERS: ATTEND Family Medicine
DX: R91.8 Other nonspecific abnormal finding of lung field (principal); Z87.891 Personal history of nicotine dependence
CPT/HCPCS: 71271

== ENCOUNTER 2024-04-07 10:14 | Emergency (ER) | payer OTHER ==
[2024-04-07 10:19] VITALS: RESP 18; TEMP 97.9
[2024-04-07] MEDS: FLUORESCEIN STRIPS 1 MG STRIP LEFT EYE ONE (10:36)
[2024-04-07] MEDS: PROPARACAINE 0.5% OPHTH DROPS 15 ML BTL LEFT EYE STA (10:36)
--- NOTE | 2024-04-07 10:36 | ED ---
Eye Problem HPI - General Chief complaint: Eye Problems Stated complaint: L eye pain/floater Time Seen by Provider: 04/07/24 10:33 Source: patient, RN notes reviewed Mode of arrival: ambulatory Limitations: no limitations - History of Present Illness Initial comments: 69-year-old male presenting with left eye floaters x 1 week. States that there is a constant "web of black lines" directly in his line of vision that looks like a spiderweb. He also has occasional flashers of bright light in his lateral vision of his left eye. He reports they both started at the same time. He denies pain however reports there is an sensation that he feels like there may be a foreign body in his eye. 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 Denies eye redness or drainage. He has never had this before. He does have a past medical history of atrial fibrillation, hyperlipidemia, and hypertension. - Related Data Home Medications Medication Instructions Recorded Confirmed Cholecalciferol [Vitamin D3 (25 75 mcg PO DAILY 07/18/21 12/09/23 Mcg = 1000 Iu)] Acetaminophen Tab [Tylenol] 1,000 mg PO Q6H PRN 05/01/23 12/09/23 Previous Rx's Medication Instructions Recorded Atorvastatin [Lipitor] 80 mg PO HS #30 tab 02/07/20 Nitroglycerin Sl Tabs [Nitrostat] 0.4 mg SUBLINGUAL Q5M PRN #25 tab 02/07/20 Apixaban [Eliquis] 5 mg PO BID 30 Days #60 tab 07/24/21 Aspirin 81 mg PO DAILY 30 Days #30 tab 07/24/21 carvediloL [Coreg] 3.125 mg PO BID #180 tablet 12/10/23 lisinopriL [Zestril] 20 mg PO DAILY #90 tab 12/10/23 Allergies Allergy/AdvReac Type Severity Reaction Status Date / Time No Known Allergies Allergy Verified 04/07/24 10:19 Review of Systems ROS Statement: Those systems with pertinent positive or pertinent negative responses have been documented in the HPI. ROS Other: All systems not noted in ROS Statement are negative. Past Medical History Past Medical History: Atrial Fibrillation, Coronary Artery Disease (CAD), Hyperlipidemia, Hypertension, Myocardial Infarction ([place]) Additional Past Medical History / Comment(s): covid jul 2021, Cardiac arrest 2019, Last Myocardial Infarction Date:: 12/04/17 History of Any Multi-Drug Resistant Organisms: None Reported Past Surgical History: Heart Catheterization With Stent, Orthopedic Surgery Additional Past Surgical History / Comment(s): R shoulder, right foot bunion removal Past Anesthesia/Blood Transfusion Reactions: No Reported Reaction Date of Last Stent Placement:: 12/04/17 Past Psychological History: No Psychological Hx Reported Past Drug Use History: None Reported - Past Family History Father Family Medical History: Myocardial Infarction ([place]) Additional Family Medical History / Comment(s): smoker, lung CA Mother Family Medical History: No Reported History General Exam Limitations: no limitations General appearance: alert, in no apparent distress Head exam: Present: atraumatic, normocephalic, normal inspection Eye exam: Present: normal appearance, PERRL, EOMI, other (Visual acuity 20/50 bilaterally. Fluorescein stain is negative for abrasions or ulcerations. Intraocular pressure is 16.). Absent: scleral icterus, conjunctival injection, periorbital swelling, periorbital tenderness Pupils: Present: normal accommodation ENT exam: Present: normal exam, mucous membranes moist Respiratory exam: Present: normal lung sounds bilaterally. Absent: respiratory distress, wheezes, rales, rhonchi, stridor Cardiovascular Exam: Present: regular rate, normal rhythm, normal heart sounds. Absent: systolic murmur, diastolic murmur, rubs, gallop, clicks Course Vital Signs 04/07/24 04/07/24 10:17 11:53 Temperature 97.9 F 97.9 F Pulse Rate 96 80 Respiratory 18 18 Rate Blood Pressure 130/92 109/72 O2 Sat by Pulse 94 L 99 Oximetry Medical Decision Making - Medical Decision Making Was pt. sent in by a medical professional or institution (, PA, BUILDER OPERATOR, urgent care, hospital, or senior care...) When possible be specific @ -No Did you speak to anyone other than the patient for history (EMS, parent, family, police, friend...)? What history was obtained from this source @ -No Did you review nursing and triage notes (agree or disagree)? Why? @ -I reviewed and agree with nursing and triage notes Were old charts reviewed (outside hosp., previous admission, EMS record, old EKG, old radiological studies, urgent care reports/EKG's, senior care records)? Report findings @ -No old charts were reviewed Differential Diagnosis (chest pain, altered mental status, abdominal pain women, abdominal pain men, vaginal bleeding, weakness, fever, dyspnea, syncope, headache, dizziness, GI bleed, back pain, seizure, CVA, palpatations, mental health, musculoskeletal)? @ -Posterior vitreous detachment, retinal tear, retinal detachment, posterior uveitis, vitreous hemorrhage, corneal abrasion, corneal ulceration, conjunctivi tis EKG interpreted by me (3pts min.). @ -None X-rays interpreted by me (1pt min.). @ -None done CT interpreted by me (1pt min.). @ -None done U/S interpreted by me (1pt. min.). @ -None done What testing was considered but not performed or refused? (CT, X-rays, U/S, labs)? Why? @ -None What meds were considered but not given or refused? Why? @ -None Did you discuss the management of the patient with other professionals (professionals i.e. , PA, BUILDER OPERATOR, lab, RT, psych nurse, social psychologist, raw silk grader, teacher, textile technical officer, pillowcase cutter)? Give summary @ -I spoke with Dr. Arroyo criminal defense lawyer regarding this case and he recommends follow-up in his office either today or tomorrow. He was given patient's contact information and his office will give patient a call to schedule an appointment. He recommends patient can be safely discharged from ER at this time. Was smoking cessation discussed for >3mins.? @ -No Was critical care preformed (if so, how long)? @ -No Were there social determinants of health that impacted care today? How? (Homelessness, low income, unemployed, alcoholism, drug addiction, transportation, low edu. Level, literacy, decrease access to med. care, detention, rehab)? @ -No Was there de-escalation of care discussed even if they declined (Discuss DNR or withdrawal of care, Hospice)? DNR status @ -No What co-morbidities impacted this encounter? (DM, HTN, Smoking, COPD, CAD, Cancer, CVA, ARF, Chemo, Hep., AIDS, mental health diagnosis, sleep apnea, morbid obesity)? @ -None Was patient admitted / discharged? Hospital course, mention meds given and route, prescriptions, significant lab abnormalities, going to OR and other pertinent info. @ -Patient was discharged. Patient was seen and evaluated for left eye floaters x 1 week. Vitals are within normal limits. Visual acuity is 20/50 bilaterally. Fluorescein stain is negative for abrasions or ulcerations. Intraocular pressure is 16. Case discussed with Dr. Arroyo criminal defense lawyer regarding this case and he recommends follow-up in his office either today or tomorrow. He was given patient's contact information and his office will give patient a call to schedule an appointment. He recommends patient can be safely discharged from ER at this time. This was discussed with patient and he shows understanding and is agreeable to plan. Case discussed with my attending Dr. Acuna. Patient discharged in stable condition. Undiagnosed new problem with uncertain prognosis? @ -No Drug Therapy requiring intensive monitoring for toxicity (Heparin, Nitro, Insulin, Cardizem)? @ -No Were any procedures done? @ -No Diagnosis/symptom? @ -Left eye floaters Acute, or Chronic, or Acute on Chronic? @ -Acute Uncomplicated (without systemic symptoms) or Complicated (systemic symptoms)? @ -Uncomplicated Side effects of treatment? @ -No Exacerbation, Progression, or Severe Exacerbation? @ -No Poses a threat to life or bodily function? How? (Chest pain, [place], [place], pneumonia, PE, COPD, DKA, ARF, appy, cholecystitis, CVA, Diverticulitis, Homicidal, Suicidal, threat to staff... and all critical care pts) @ -Low likelihood Disposition Clinical Impression: Vitreous floaters of left eye Disposition: HOME SELF-CARE Condition: Stable Instructions (If sedation given, give patient instructions): Visual Floaters (ED) Additional Instructions: Please await call from Dr. Arroyo's office at [facility] [place]. If you do not hear from them today, please call the office at [phone]. Is patient prescribed a controlled substance at d/c from ED?: No Referrals: [facility],Clinic [Primary Care Provider] - 1-2 days Time of Disposition: 11:48
[2024-04-07 11:55] VITALS: BP 109/72; PULSE 80
== END 2024-04-07 11:55 | disposition home or self-care (01) ==
LOC: EC 10:14
DX: H43.392 Other vitreous opacities, left eye (principal)
CPT/HCPCS: 99283